=== PATIENT | female | born 1955 | race Caucasian/White ===

== ENCOUNTER 2020-03-31 12:46 | Emergency (ER) | payer MEDICARE, SELFPAY ==
--- NOTE | 2020-03-31 14:06 | ED_ITS ---
HPI - General Adult General Chief complaint: Back Pain/Injury Stated complaint: BACK PAIN Time Seen by Provider: 03/31/20 13:58 Source: patient and hourly sign language interpreter Mode of arrival: ambulatory Limitations: language barrier (tongan) History of Present Illness HPI narrative: 65 yo female with past medical history of hypertension, hyperlipidemia, GERD here with acute on chronic low back pain since yesterday. No injury or trauma. Radiation of pain down the right leg. No paresthesias. No saddle anesthesia. No bowel or bladder incontinence. No fevers or chills. Patient is ambulatory. History of same which improved with Toradol. Onset (ago): day(s) Location: back Radiation: extremity (right lower extremity ) Severity: mild Pain Consistency: constant Relieving factors: none Exacerbating factors: none Associated symptoms: denies other symptoms Treatments prior to arrival: none Related Data Previous Rx's Medication Instructions Recorded cyclobenzaprine 10 mg PO TID PRN #10 tab 03/31/20 lidocaine [Lidoderm] 1 patch TOPICAL DAILY #15 ea 03/31/20 naproxen 500 mg PO BID PRN #10 tab 03/31/20 Allergies Allergy/AdvReac Type Severity Reaction Status Date / Time peanut [PEANUT] Allergy Unknown ANAPHYLAXIS Unverified 12/13/19 15:56 penicillin G [Penicillin G] Allergy Unknown RASH Unverified 12/13/19 15:56 FRUIT Allergy Unknown THROAT Uncoded 12/13/19 15:56 CLOSES Review of Systems Review of Systems: Yes all other systems are reviewed and are negative Constitutional: Constitutional: Reports no additional constitutional complaints, Denies body ache(s), Denies chills, Denies fever(s), Denies headache(s) and Denies weakness Eyes: Eyes: Reports no additional eye complaints and Denies change in vision ENT: Reports system reviewed and no additional complaints, except as documented, Denies dizziness, Denies headache(s), Denies nasal congestion, Denies nasal discharge and Denies neck pain Cardiovascular: Cardiovascular: Reports no additional cardiovascular complaints, Denies chest pain, Denies leg edema and Denies dyspnea Respiratory: Respiratory: Reports no additional respiratory complaints, Denies cough and Denies dyspnea Gastrointestinal: Gastrointestinal: Reports no additional gastrointestinal complaints, Denies abdominal pain, Denies diarrhea, Denies nausea and Denies vomiting Genitourinary: Genitourinary: Reports no additional female genitourinary complaints and Denies urinary incontinence Musculoskeletal: Musculoskeletal: Reports no additional musculoskeletal complaints, Reports back pain, Denies arthralgias, Denies joint swelling, Denies neck pain, Denies numbness and Denies tingling Integumentary/Breasts: Skin/Breast: Reports system reviewed and no additional complaints, except as docu and Denies rash Neurologic: Reports system reviewed and no additional complaints, except as documented, Denies Abnormal speech present, Denies dizziness, Denies headache(s), Denies numbness, Denies tingling and Denies weakness FOR[facility]LY [facility], [facility] Past Medical History Attestation statement: The following information was validated with the patient. Source: old records reviewed and nursing notes reviewed Medical History (Updated 03/31/20 @ 14:10 by Vicente Molina) GERD (gastroesophageal reflux disease) HLD (hyperlipidemia) HTN (hypertension) Social History Social History Advance Directives: No Advance Directives Information Provided: No Physical Exam Vital Signs: Vital Signs: Last Vital Signs Temp 98 F 03/31/20 14:08 Pulse 60 03/31/20 14:08 Resp 16 03/31/20 14:08 BP 137/75 03/31/20 14:08 Pulse Ox 97 03/31/20 14:08 Body Mass Index 28.5 Const: General: cooperative, healthy appearing, comfortable and no acute distress Orientation/consciousness: patient oriented x3 Limitations: no limitations HENMT: Head: Yes normal to inspection Ears: hearing grossly normal bilaterally General nose exam: Normal external nose present Face and sinus: Yes normal facial exam Mouth: Normal oral and palatal mucosa present Throat: Yes posterior oropharynx normal Eyes: General: appearance normal, both eyes and all related structures Pupils: Equal, round and reactive pupils present Neck: Neck: Yes normal visual inspection Chest: Chest palpation & inspection: normal inspection of the chest Resp: Effort & Inspection: normal respiratory effort Auscultation: clear to auscultation bilaterally Cardio: Rate: regular rate Rhythm: regular rhythm Peripheral pulses: Peripheral pulses 2+ throughout GI: Inspection: Yes normal to inspection Palpation (GI): Soft to palpation and nontender Auscultation: normal bowel sounds Back/Spine/Pelvis: Other: Pain over the lumbar mid spine with tenderness. No step-off deformities. Full range of motion. Thoracic/Lumbar Spine: thoracic and lumbar spine normal to inspection Skin: General skin exam: no rashes or lesions noted Neuro: General: patient oriented x3, no focal motor deficits and normal sensation to monofilament Cranial nerves: Yes CN's II-XII intact bilaterally, Yes Equal, round and reactive pupils present, Yes Bilaterally intact EOM present, Yes Nystagmus not present, Yes Normal facial strength present and Yes Midline tongue present Cognition (Neuro): normal cognition Speech: No Abnormal speech present Gait exam (Neuro): Normal gait present Motor exam (neuro): 5/5 motor strength present throughout Sensory Exam: Normal double simultaneous stimulation for sensation Deep tendon reflexes (DTR's): Right patellar reflex intensity grade: 2+ and Left patellar reflex intensity grade: 2+ Extrem: General: Yes normal to inspection Course Course Course Narrative: Acute chronic low back pain is 1 day. No injury or trauma. Pain radiates down the right leg. No neurological deficits reflects nodes. Patient has had this similar pain before it is improved with Toradol. Given Toradol IM here with her. Reviewed worrisome signs symptoms would return to the emergency department. Comfortable discharge home. Discharge Plan Discharge Clinical Impression: Sciatica Qualifiers: Laterality: right Qualified Code(s): M54.31 - Sciatica, right side Patient Disposition: Home, Self-Care Instructions: Acute Low Back Pain (ED) Additional Instructions: heat gentle stretching Prescriptions: New naproxen 500 mg tablet 500 mg PO BID PRN (Reason: pain) Qty: 10 RF: 0 cyclobenzaprine 10 mg tablet 10 mg PO TID PRN (Reason: muscle spasm) Qty: 10 RF: 0 lidocaine [Lidoderm] 5 % adhesive patch,medicated 1 patch topical DAILY Qty: 15 RF: 0 Referrals: Physician,None [Primary Care Provider] - 2 days Interventions: ED Discharge Assessment Last Done: 03/31/20 14:22 Print Language: Kazakh
[2020-03-31 14:08] VITALS: BP 137/75; PULSE 60; RESP 16; TEMP 36.6; O2SAT 97; BMI 28.5
[2020-03-31] MEDS: Ketorolac Tromethamine 60 MG/2 ML VIAL IM (14:17)
== END 2020-03-31 14:30 | disposition home or self-care (01) ==
LOC: HO.ED 14:38
PROVIDERS: Emergency Provider Emergency Medicine
DX: M54.41 Lumbago with sciatica, right side (principal); I10 Essential (primary) hypertension
CPT/HCPCS: 96372; 99283; 99284; J1885

== ENCOUNTER 2021-01-04 11:13 | Emergency (ER) | payer OTHER, SELFPAY ==
--- NOTE | ~2021-01-04 | XR_ITS ---
EXAMINATION: XR LUMBOSACRAL SPINE CLINICAL INFORMATION: Low back pain. COMPARISON: None TECHNIQUE: Three views of the lumbosacral spine. FINDINGS: There is normal lumbar lordosis with loss of L1-L2 and T12-L1 disc heights. No focal acute fracture, lytic or sclerotic process seen. The paravertebral soft tissues are normal. XR/XR lumbar spine 2-3V IMPRESSION: Mild degenerative changes T12-L1 and L1-L2 disc levels. No visible acute fracture or dislocation seen. No lytic process.
[2021-01-04 11:16] VITALS: BP 133/85; PULSE 84; RESP 20; TEMP 36.6; O2SAT 97; BMI 29.2
[2021-01-04 11:44] LABS: MANUAL DIFF FLAG NO
[2021-01-04 11:46] LABS: Appearance Urine HAZY; Color Urine STRAW; Glucose Urine UA NEG (NEG); Leukocyte Esterase Urine 1+ (NEG); Nitrite Urine NEG (NEG); Specific Gravity - Urine <= 1.005 (1.005-1.025); UACC Culture Trigger YES; Urine Blood NEG (NEG); Urine Ketones NEG (NEG); Urine Protein NEG (NEG-TRACE)
[2021-01-04 11:46] LABS: Basophils Absolute Auto 0.1 X10*3/uL (0.0-0.2); Basophils Percent Auto 0.8 % (0-2); Eosinophils Absolute Auto 0.4 X10*3/uL (0.0-0.4); Eosinophils Percent Auto 4.2 % (0-4); Hematocrit 45.3 % (37-47); Hemoglobin 15.1 g/dl (12.0-16.0); Imm Gran Abs Auto 0.03 X10*3/uL (0.00-0.03); Imm Gran Pct Auto 0.3 % (0.0-0.4); Lymphocytes Absolute Auto 2.4 X10*3/uL (1.2-4.9); Lymphocytes Percent Auto 27.9 % (20-40); Mean Corpuscular HGB Conc 33.3 g/dl (31.0-35.0); Mean Corpuscular Hemoglobin 30.1 pg (27.0-33.0); Mean Corpuscular Volume 90.4 fL (80-98); Mean Platelet Volume 9.3 fL (9.4-12.3); Monocytes Absolute Auto 0.7 X10*3/uL (0.1-1.2); Monocytes Percent Auto 7.5 % (2-11); Neutrophils Absolute Auto 5.1 X10*3/uL (2.0-8.3); Neutrophils Percent Auto 59.3 % (45-73); Platelet Count 341 X10*3/uL (160-400); Red Blood Count 5.01 X10*6/uL (4.20-5.50); Red Cell Distribution Width 13.6 % (11.0-16.0); White Blood Count 8.7 X10*3/uL (4.8-10.8)
[2021-01-04 11:56] LABS: RBC Urine 0 /HPF (0); UACC CULT YES
[2021-01-04 11:57] LABS: Bacteria Urine 2+ /LPF; Squamous Epithelial Cell Urine 4+ /LPF
[2021-01-04 12:01] LABS: Alanine Aminotransferase 44 U/L (0-31); Albumin Level 4.6 g/dL (3.5-5.0); Alkaline Phosphatase 118 U/L (39-117); Anion Gap 13 (12-20); Aspartate Amino Transferase 27 U/L (5-31); Bilirubin Total 0.7 mg/dL (0.0-1.0); Blood Urea Nitrogen 19 mg/dL (9-16); Calcium 10.3 mg/dL (8.4-10.2); Carbon Dioxide 27 mmol/L (22-29); Chloride 103 mmol/L (96-108); Creatinine Clr Calc Pharmacy 69.7; Estimated Glomerular Filt Rate > 60; Glucose Random 105 mg/dL (60-115); Potassium 3.9 mmol/L (3.3-5.1); Sodium 139 mmol/L (135-145); Total Protein 8.3 g/dL (6.5-8.0)
--- NOTE | 2021-01-04 16:17 | ED_ITS ---
HPI - Back Pain/Injury General Chief Complaint: Back Pain/Injury Stated Complaint: back pain Time Seen by Provider: 01/04/21 16:17 Source: patient Mode of arrival: ambulatory Limitations: no limitations History of Present Illness HPI Narrative: Patient with hx of chronic back pain left sciatica complaining of increased pain in the lower back for last 4 days. Patient denies any significant trauma prior to worsening of the pain. Patient complain pain seems a little different than the sciatica pain going bilateral lower back and in groin area when she ambulates no urinary or bowel complaints no urinary compla ints no fever no weakness of the legs no paresthesia . No abdominal pain Related Data Home Medications Medication Instructions Recorded Confirmed albuterol sulfate 90 mcg/actuation INHALATION 12/30/20 12/30/20 aerosol inhaler (ProAir HFA) amlodipine 10 mg tablet 10 mg PO DAILY 12/30/20 12/30/20 losartan 100 mg tablet 100 mg PO DAILY 12/30/20 12/30/20 pantoprazole 40 mg tablet,delayed 40 mg PO DAILY 12/30/20 12/30/20 release simvastatin 20 mg tablet 20 mg PO BEDTIME 12/30/20 12/30/20 Previous Rx's Medication Instructions Recorded lidocaine 5 % topical patch 1 patch TOPICAL DAILY #15 ea 03/31/20 (Lidoderm) naproxen 500 mg tablet 500 mg PO BID PRN #10 tab 03/31/20 cyclobenzaprine 10 mg tablet 10 mg PO BID PRN #20 tab 12/30/20 nabumetone 500 mg tablet 500 mg PO BID PRN #30 tab 12/30/20 oxycodone 5 mg tablet 5 mg PO Q6H PRN #20 tab 01/04/21 prednisone 20 mg tablet 40 mg PO DAILY #10 tab 01/04/21 Allergies Allergy/AdvReac Type Severity Reaction Status Date / Time peanut [PEANUT] Allergy Unknown ANAPHYLAXIS Verified 01/04/21 11:22 penicillin G [Penicillin G] Allergy Unknown RASH Verified 01/04/21 11:22 FRUIT Allergy Unknown THROAT Uncoded 01/04/21 11:22 CLOSES Review of Systems Review of Systems: Yes all other systems are reviewed and are negative PMFSH Past Medical History Medical History GERD (gastroesophageal reflux disease) H/O nasal polyp HLD (hyperlipidemia) HTN (hypertension) Lumbago with sciatica, left side Surgical History History of tonsillectomy Hx of arthroscopy of right knee Family History Family History Daughter Mental health disorder Daughter Mental health disorder Social History Social History Housing: House Patient Tobacco Use Status: Never used Tobacco e-Cigarette/Vaping Use: Never Used Second Hand Smoke Exposure: No Advance Directives: No Patient : No service: No Current occupational status: unemployed Physical Exam Vital Signs: Vital Signs: Last Vital Signs Temp 97.7 F 01/04/21 17:27 Pulse 65 01/04/21 17:27 Resp 16 01/04/21 17:27 BP 133/76 01/04/21 17:27 Pulse Ox 97 01/04/21 17:27 Body Mass Index 29.2 Const: General: healthy appearing, well developed and acute distress mild Orientation/consciousness: patient oriented x3 Neck: Neck: No tender Resp: Effort & Inspection: normal respiratory effort Auscultation: clear to auscultation bilaterally Cardio: Palpation: normal PMI Rate: regular rate Rhythm: regular rhythm Heart sounds: S1 normal heart sound present and S2 normal heart sound present Bruits: no abdominal aortic bruits GI: Inspection: Yes normal to inspection Palpation (GI): No Abdominal aortic bruit present, Soft to palpation and nontender Auscultation: normal bowel sounds : General: Yes no CVA tenderness Back/Spine/Pelvis: Back: no CVA tenderness Cervical Spine: normal cervical lordosis, No Cervical spine tenderness and No step off deformity Thoracic/Lumbar Spine: straight leg raise negative bilaterally, thoraco-lumbar spasm and lumbar spinal tenderness at L2 and at L3 Back/spine/pelvis image: 1. Diffuse tenderness paraspinal area no focal spinal tenderness sacral sensation intact Neuro: General: patient oriented x3 and no focal motor deficits MDM - Back Pain/Injury MDM Narrative Medical decision making narrative: Patient's lumbar spine x-ray which showed some degenerative joint disease no acute fracture or lytic lesion discharge patient home on pain medication Lab Data Attestation: I reviewed the patient's lab results. Result diagrams: 01/04/21 11:35 01/04/21 11:35 Labs: Lab Results 01/04/21 01/04/21 01/04/21 Range/Units 11:35 11:35 11:39 WBC 8.7 (4.8-10.8) X10*3/uL RBC 5.01 (4.20-5.50) X10*6/uL Hgb 15.1 (12.0-16.0) g/dl Hct 45.3 (37-47) % MCV 90.4 (80-98) fL MCH 30.1 (27.0-33.0) pg MCHC 33.3 (31.0-35.0) g/dl RDW 13.6 (11.0-16.0) % Plt Count 341 (160-400) X10*3/uL MPV 9.3 L (9.4-12.3) fL Immature Gran % (Auto) 0.3 (0.0-0.4) % Neut % (Auto) 59.3 (45-73) % Lymph % (Auto) 27.9 (20-40) % [place] % (Auto) 7.5 (2-11) % Eos % (Auto) 4.2 H (0-4) % Baso % (Auto) 0.8 (0-2) % Lymph # (Auto) 2.4 (1.2-4.9) X10*3/uL [place] # (Auto) 0.7 (0.1-1.2) X10*3/uL Eos # (Auto) 0.4 (0.0-0.4) X10*3/uL Baso # (Auto) 0.1 (0.0-0.2) X10*3/uL Abs Immat Gran (auto) 0.03 (0.00-0.03) X10*3/uL Absolute Neuts (auto) 5.1 (2.0-8.3) X10*3/uL Absolute Nucleated RBC 0.000 (0.0-0.012) X10*3/uL Nucleated RBC % (auto) 0.0 (0.0-0.2) /100WBC Sodium 139 (135-145) mmol/L Potassium 3.9 (3.3-5.1) mmol/L Chloride 103 (96-108) mmol/L Carbon Dioxide 27 (22-29) mmol/L Anion Gap 13 (12-20) BUN 19 H (9-16) mg/dL Creatinine 0.77 (0.5-1.4) mg/dL Estim Creat Clear Calc 69.7 Estimated GFR > 60 Random Glucose 105 (60-115) mg/dL Calcium 10.3 H (8.4-10.2) mg/dL Total Bilirubin 0.7 (0.0-1.0) mg/dL AST 27 (5-31) U/L ALT 44 H (0-31) U/L Alkaline Phosphatase 118 H (39-117) U/L Total Protein 8.3 H (6.5-8.0) g/dL Albumin 4.6 (3.5-5.0) g/dL Urine Color STRAW Urine Appearance HAZY Urine pH 6.0 (5.0-8.0) Ur Specific [place] <= 1.005 (1.005-1.025) Urine Protein NEG (NEG-TRACE) MG/DL Urine Glucose (UA) NEG (NEG) MG/DL Urine Ketones NEG (NEG) MG/DL Urine Blood NEG (NEG) Urine Nitrite NEG (NEG) Ur Leukocyte Esterase 1+ H (NEG) Urine RBC 0 (0) /HPF Urine WBC 1-4 (0-4) /HPF Ur Squamous Epith Cells 4+ /LPF Urine Bacteria 2+ /LPF Discharge Plan Discharge Clinical Impression: Strain of lumbar region Qualifiers: Encounter type: initial encounter Qualified Code(s): S39.012A - Strain of muscle, fascia and tendon of lower back, initial encounter Patient Disposition: Home, Self-Care Instructions: Back Pain (ED) Additional Instructions: Take pain medication as advised Follow-up with your PCP for further evaluation including MRI [place] los analg?sicos seg?n lo recomendado Shabbir un seguimiento con arevalo PCP para leo evaluaci?n adicional, incluida leo resonancia magn?katy Prescriptions: New prednisone 20 mg tablet 40 mg PO DAILY Qty: 10 RF: 0 oxycodone 5 mg tablet 5 mg PO Q6H PRN (Reason: Pain (Scale Score 7-10)) Qty: 20 RF: 0 No Action naproxen 500 mg tablet 500 mg PO BID PRN (Reason: pain) Qty: 10 RF: 0 lidocaine [Lidoderm] 5 % adhesive patch,medicated 1 patch topical DAILY Qty: 15 RF: 0 pantoprazole 40 mg tablet,delayed release (DR/EC) 40 mg PO DAILY RF: 0 losartan 100 mg tablet 100 mg PO DAILY RF: 0 amlodipine 10 mg tablet 10 mg PO DAILY RF: 0 simvastatin 20 mg tablet 20 mg PO BEDTIME RF: 0 albuterol sulfate [ProAir HFA] 90 mcg/actuation HFA aerosol inhaler inhalation RF: 0 cyclobenzaprine 10 mg tablet 10 mg PO BID PRN (Reason: muscle spasm) Qty: 20 RF: 0 nabumetone 500 mg tablet 500 mg PO BID PRN (Reason: pain) Qty: 30 RF: 0 Print Language: Norwegian
[2021-01-04 17:27] VITALS: BP 133/76; PULSE 65; RESP 16; TEMP 36.5; O2SAT 97
[2021-01-04] MEDS: oxyCODONE HCl Immed Release 5 MG TABLET 10 MG PO (18:16)
[2021-01-04] MEDS: dexAMETHasone 2 MG TABLET 10 MG PO (18:17)
== END 2021-01-04 19:34 | disposition home or self-care (01) ==
PROVIDERS: Emergency Provider Internal Medicine
DX: S39.012A Strain of muscle, fascia and tendon of lower back, initial encounter (principal); I10 Essential (primary) hypertension; X58.XXXA Exposure to other specified factors, initial encounter; Y93.9 Activity, unspecified; Y92.9 Unspecified place or not applicable; Y99.9 Unspecified external cause status
CPT/HCPCS: 36415; 72100; 80053; 81001; 85025; 87086; 87088; 87147; 87186; 99283; 99284; J8540

== ENCOUNTER 2021-02-03 13:37 | Outpatient (REF) | payer OTHER, SELFPAY ==
--- NOTE | ~2021-02-03 | MR_ITS ---
EXAMINATION: MR LUMBAR SPINE WITHOUT CONTRAST CLINICAL INFORMATION: 65-year-old with lumbago and right sciatica. COMPARISON: None TECHNIQUE: MRI of the lumbar spine was obtained using routine sequences without contrast. FINDINGS: CORONAL ALIGNMENT: Normal. SAGITTAL ALIGNMENT: Normal. LUMBOSACRAL JUNCTION: Normal. VERTEBRAL BODIES: Normal height. DISC SPACES AND ENDPLATES: [id number]-dpmcnpez disc space height loss at L5-S1 with disc desiccation noted. Mild disc desiccation at L4-L5 and to a lesser degree at L3-L4 and L2-L3. Minimal disc desiccation at L1-L2. Minor degrees of anterior marginal endplate spurring throughout the lumbar spine. SPINAL CANAL: No abnormal developmental findings. BONE MARROW: No significant marrow-replacing process or bone marrow edema. CONUS MEDULLARIS: Terminates at L1. Morphology and signal is normal. INTRADURAL NERVE ROOTS: Within normal limits. L5-S1: Mild diffuse disc bulging is noted with mild bilateral facet arthropathy without significant canal or neural foraminal stenosis. L4-L5: Minimal disc bulging noted with mild ligamentum flavum thickening and minor facet hypertrophic change without significant canal or neural foraminal stenosis. L3-L4: No significant disc bulge or herniation and no significant facet arthrosis, canal or neural foraminal stenosis. L2-L3: Tiny right paramedian disc protrusion noted. No significant facet arthrosis, canal or neural foraminal stenosis. L1-L2: Small central extruded disc herniation noted with slight indentation of the ventral thecal sac without significant facet arthrosis, canal or neural foraminal stenosis. PARASPINAL/RETROPERITONEAL: The paravertebral soft tissues are unremarkable. MR/MR lumbar spine wo con IMPRESSION: 1. Discogenic degenerative changes with disc bulging and facet arthropathy at L5-S1 and minimal disc bulging at L4-L5 with minor degrees of multilevel anterior marginal endplate spurring without canal or neural foraminal stenosis. 2. Small disc herniations at L1-L2 and L2-L3.
== END 2021-02-03 13:38 | disposition home or self-care (01) ==
LOC: HO.MRI 13:37
PROVIDERS: Visit Provider Nurse Practitioner Family
DX: M54.41 Lumbago with sciatica, right side (principal); M54.42 Lumbago with sciatica, left side; G89.29 Other chronic pain
CPT/HCPCS: 72148

== ENCOUNTER 2021-02-10 13:27 | Outpatient (REF) | payer OTHER, SELFPAY ==
--- NOTE | ~2021-02-10 | MM_ITS ---
EXAMINATION: MM SCREENING DIGITAL BREAST TOMOSYNTHESIS, BILATERAL CLINICAL INFORMATION: Screening. Asymptomatic. The lifetime risk of breast cancer based on the Tyrer-Cuzick Model is 4%. COMPARISON: Mammography: 03/10/2016, 09/18/2013. TECHNIQUE: Digital breast tomosynthesis is performed in both the craniocaudal and mediolateral oblique views along with computer-aided detection (CAD). Synthesized 2D images are generated from the tomosynthesis. Additional left MLO view is provided. FINDINGS: There are scattered areas of fibroglandular density (ACR BI-RADS breast composition Category b). There are no significant masses, abnormal calcifications, or other abnormalities. MM/MM tomosynthesis screening BI IMPRESSION: No mammographic evidence of malignancy. ASSESSMENT: BI-RADS 1: Negative RECOMMENDATION: Routine annual mammography screening. This patient's information was entered into a reminder system with a target due date for their next mammogram.
== END 2021-02-10 13:28 | disposition home or self-care (01) ==
LOC: HO.MAMMO 13:27
PROVIDERS: PCP Internal Medicine; Visit Provider Internal Medicine
DX: Z12.31 Encounter for screening mammogram for malignant neoplasm of breast (principal)
CPT/HCPCS: 77063; 77067

== ENCOUNTER 2021-04-01 12:40 | Outpatient (REF) | payer OTHER, SELFPAY ==
[2021-04-01 16:26] LABS: CT PCR NOT DETECTED (Not Detect.); NG PCR NOT DETECTED (Not Detect.)
[2021-04-07 03:12] LABS: HPV mRNA E6/E7 rflx Not Detected (Not Detected)
== END 2021-04-01 12:41 | disposition home or self-care (01) ==
LOC: HO.LAB 12:40
PROVIDERS: PCP Internal Medicine; Visit Provider Advanced Practice Midwife
DX: Z01.419 Encounter for gynecological examination (general) (routine) without abnormal findings (principal); Z11.51 Encounter for screening for human papillomavirus (HPV); Z20.2 Contact with and (suspected) exposure to infections with a predominantly sexual mode of transmission
CPT/HCPCS: 87491; 87591; 87624; 88142

== ENCOUNTER 2021-05-08 12:41 | Outpatient (REF) | payer OTHER, SELFPAY ==
--- NOTE | ~2021-05-08 | XR_ITS ---
EXAMINATION: XR CERVICAL SPINE CLINICAL INFORMATION: Pain COMPARISON: None TECHNIQUE: 6 views of the cervical spine, inclusive of flexion and extension views, were obtained. FINDINGS: No acute fracture or subluxation. Alignment of the cervical spine maintained. Vertebral body heights maintained. Mild loss of disc space height at C5-C6. Tiny endplate osteophytes present C4-C5, C5-C6-C6 7. Mild facet arthropathy throughout cervical spine. Mild osseous neural foraminal encroachment on the right at C4-C5 and C5-C6. Paraspinal soft tissues unremarkable. XR/XR cervical spine min 6V IMPRESSION: No acute findings. Cervical spondylosis as described.
== END 2021-05-08 12:42 | disposition home or self-care (01) ==
LOC: HO.XRAY 12:41
PROVIDERS: PCP Internal Medicine; Visit Provider Student in an Organized Health Care Education/Training Program
DX: M51.16 Intervertebral disc disorders with radiculopathy, lumbar region (principal)
CPT/HCPCS: 72052

== ENCOUNTER → 2021-06-16 13:11 | Outpatient (BNVA) | payer OTHER, SELFPAY | PROVIDERS: PCP Internal Medicine; Visit Provider Physician Assistant | DX: K21.9 Gastro-esophageal reflux disease without esophagitis (principal) | CPT/HCPCS: 99202 ==

== ENCOUNTER 2021-08-14 12:50 | Day surgery (SDC) | payer OTHER, SELFPAY ==
[2021-08-10 14:54] VITALS: BMI 28.9
--- NOTE | 2021-08-13 10:00 | HO.ANESPROP2 ---
Documented by User: Latanya Barcenas NP 08/13/21 10:02 HPI - Anesthesia Eval Consult details Narrative: 66yo F for Upper Endoscopy PMFSH Active Problems Active Problems: All Active Problems (Updated 08/10/21 @ 14:55 by Lorri Duke, JESSY) Strain of lumbar region (Acute) Chronic low back pain with bilateral sciatica (Acute) Facet arthropathy, lumbosacral (Acute) L4-L5 disc bulge (Acute) Lumbar disc herniation (Acute) Melena (Acute) Moderate persistent asthma, uncomplicated (Acute) Hypercalcemia (Acute) GERD (gastroesophageal reflux disease) (Acute) HTN (hypertension) (Acute) HLD (hyperlipidemia) (Acute) Asthma (Acute) Lumbago with sciatica, left side (Acute) Past Medical History Medical History COVID-19 vaccine series completed GERD (gastroesophageal reflux disease) H/O nasal polyp HLD (hyperlipidemia) HTN (hypertension) Hypercalcemia Lumbago with sciatica, left side Melena Moderate persistent asthma, uncomplicated Family History Family History Daughter Mental health disorder Daughter Mental health disorder Father CAD (coronary artery disease) Mother Alzheimer disease Essential hypertension Surgical History Surgical History H/O colonoscopy History of tonsillectomy Hx of arthroscopy of right knee Hx of nasal polypectomy Social History Social History Housing: House Patient Tobacco Use Status: Never used Tobacco e-Cigarette/Vaping Use: Never Used Second Hand Smoke Exposure: No Use of substances other than those prescribed or required for medical reasons: No Are you DNR?: No Advance Directives: No Advance Directives Information Provided: Yes Advance Directives on File: No Patient : No service: No Current occupational status: unemployed Meds Allergies Allergy/AdvReac Type Severity Reaction Status Date / Time peanut [PEANUT] Allergy Severe ANAPHYLAXIS Verified 08/10/21 14:38 penicillin G [Penicillin G] Allergy Intermediate RASH Verified 08/10/21 14:38 FRUIT Allergy Severe THROAT Uncoded 08/10/21 14:38 CLOSES Exam Exam Date and Time: August 13, 2021 1000 Height,Weight and Vital Signs: Height 5 ft 2 in Weight 71.668 kg Pertinent Lab Results Pertinent Lab Results: Laboratory Tests 01/04/21 01/04/21 11:35 11:35 WBC 8.7 Hgb 15.1 Hct 45.3 Plt Count 341 Sodium 139 Potassium 3.9 Chloride 103 Carbon Dioxide 27 BUN 19 H Creatinine 0.77 Assessment and Plan Assessment Anesthesia Assessment: Chart Reviewed Documented by User: Darshana Maria MD 08/14/21 14:23 [facility] Past Medical History Medical History COVID-19 vaccine series completed GERD (gastroesophageal reflux disease) H/O nasal polyp HLD (hyperlipidemia) HTN (hypertension) Hypercalcemia Lumbago with sciatica, left side Melena Moderate persistent asthma, uncomplicated Functional capacity: independent ambulation Patient : No Family History Family History Daughter Mental health disorder Daughter Mental health disorder Father CAD (coronary artery disease) Mother Alzheimer disease Essential hypertension Family history of problems with anesthesia: No Surgical History Surgical History H/O colonoscopy History of tonsillectomy Hx of arthroscopy of right knee Hx of nasal polypectomy History of Problems with Anesthesia: No Social History Social History Housing: House Patient Tobacco Use Status: Never used Tobacco e-Cigarette/Vaping Use: Never Used Second Hand Smoke Exposure: No Use of substances other than those prescribed or required for medical reasons: No Are you DNR?: No Advance Directives: No Advance Directives Information Provided: Yes Advance Directives on File: No Patient : No service: No Current occupational status: unemployed Meds Allergies Allergy/AdvReac Type Severity Reaction Status Date / Time peanut [PEANUT] Allergy Severe ANAPHYLAXIS Verified 08/10/21 14:38 penicillin G [Penicillin G] Allergy Intermediate RASH Verified 08/10/21 14:38 FRUIT Allergy Severe THROAT Uncoded 08/10/21 14:38 CLOSES Exam Airway Mallampati Class: II TM Dist: >3cm Neck ROM: Full Heart: RRR Lungs: CYA Assessment and Plan Final Anesthetic Review Family History of Problems with Anesthesia: No History of Problems with Anesthesia: No ASA Class: II Final Preanesthetic Review: No Changes in Pt Med Stat, Meds/Allgs Chart Reviewed, Consent Obtained/Reviewed and Anes Risks/Benef Reviewed Patient Risk: Low Procedure Risk: Low Anesthetic Plan Anesthetic Plan: MAC: Disposition: Standard PACU
[2021-08-14 13:09] VITALS: BP 123/78; PULSE 81; RESP 16; TEMP 37.2; O2SAT 96
[2021-08-14] MEDS: Lactated Ringers 1,000 ML 100 ML IVCONT (13:19)
--- NOTE | 2021-08-14 13:31 | MHC.SHP ---
Pre-Procedural Eval Section A Date of Service: 08/14/21 The patient is an INPATIENT: No The History & Physical has been completed within 30 days and I have reviewed it.: No Section B Chief Complaint: reflux disease Details of Present Illness: GERD, ? halitosis Relevant Family History (Specify if Yes): No Relevant Social History: None Present Medications: see Short Stay Collaborative assessment Medical History: Significant History (Asthma GERD (gastroesophageal reflux disease) H/O nasal polyp HLD (hyperlipidemia) HTN (hypertension) Hypercalcemia Lumbago with sciatica, left side Melena Moderate persistent asthma, uncomplicated) History of Previous Operations: Relevant previous surgery/procedure and date(s) (History of tonsillectomy Hx of arthroscopy of right knee Nasal polyps) Allergies: Allergies Allergy/AdvReac Type Severity Reaction Status Date / Time peanut [PEANUT] Allergy Severe ANAPHYLAXIS Verified 08/10/21 14:38 penicillin G [Penicillin G] Allergy Intermediate RASH Verified 08/10/21 14:38 FRUIT Allergy Severe THROAT Uncoded 08/10/21 14:38 CLOSES Review of Systems Sugical H&P ROS: Negative: Constitution, Cardiovascular and Respiratory and Yes, Specify: Gastrointestinal (dyspepsia) Exam Surgical H&P Exam: Normal: Heart, Normal: Lungs, Normal: Extremities and Normal: Abdomen Plan Diagnosis/Plan: Unchanged I have reviewed the history and physical and performed a pertinent physical examination on my patient. No changes have occurred unless specified.
--- NOTE | 2021-08-14 13:33 | W.PM.OPN ---
Operative Note Operative Note Date of Service: 08/14/21 Narrative: Pre-op diagnosis: GERD, Dyspepsia, halitosis - pt reports halitosis has resolved since the past 2 weeks Post-op diagnosis:?other (GERD, hiatal hernia, gastritis) Procedure: FLEXIBLE TRANSORAL UPPER GASTROINTESTINAL ENDOSCOPY WITH BIOPSIES Consent:?Indications for the procedure and potential complications of bleeding, perforation, reaction to medications and missed diagnosis were discussed with the patient and informed consent was obtained. Instrument:?Olympus GIF H 190 mid size upper endoscope Monitoring: Vital signs and clinical assessment, continuous EKG monitoring, Pulse oximetry, Carbon Dioxide monitoring and blood pressure monitoring were done throughout the procedure. Procedure:?The patient was placed in the left lateral decubitis position and pre-procedure medications were administered and a bite block was placed. The endoscope was inserted into the mouth and advanced under direct vision to the third part of duodenum. A careful inspection was made as the upper endoscope was withdrawn including a retroflexed examination of the proximal stomach; Findings and interventions are described below. Findings: Larynx:? Normal Esophagus:? Mildly tortuous esophagus with increased tertiary contractions without stricture or ring.? GE junction at 33 cms, hiatal hernia 33 to 37 cms. No esophagitis or Staples's. Stomach: Mild gastric erythema. Biopsies were obtained. Grade 2 flap valve on retroflexed examination of the cardia. Duodenum: Normal bulb and descending duodenum Intervention: Biopsies as noted above Impression and Post Procedure Diagnosis: Endoscopy Findings: ESOPHAGUS: Mildly tortuous esophagus with increased tertiary contractions without stricture or ring.? GE junction at 33 cms, hiatal hernia 33 to 37 cms. No esophagitis or Staples's. STOMACH: Gastritis Plan: Await pathology results Patient has an appointment on 08/27/21 in the GI [facility] with VIVIANE Taylor . GERD, Hiatal Hernia and Gastritis handouts were given in the discharge area Surgeon: Camille Villanueva MD Anesthesia:?MAC (Jana Hernandez CRNA) Was an Fiscal Services Director used for this Procedure?:?Yes Fiscal Services Director:?Navya Urbano Estimated blood loss (mL):?0 Pathology:?other (a: bx's gastric antrum? b: gastric polyps) Condition:?stable Disposition:?PACU
[2021-08-14 15:08] VITALS: BP 97/60; PULSE 76; RESP 16; TEMP 36.2; O2SAT 96
[2021-08-14 15:23] VITALS: BP 111/74; PULSE 80; RESP 18; TEMP 36.2; O2SAT 96
== END 2021-08-14 15:37 | disposition home or self-care (01) ==
PROVIDERS: PCP Internal Medicine; Visit Provider Internal Medicine Gastroenterology
PROC: 0DJ08ZZ Inspection of Upper Intestinal Tract, Via Natural or Artificial Opening Endoscopic (ICD-10-PCS; CPT 43235; principal; 2021-08-14 13:50)
DX: K21.9 Gastro-esophageal reflux disease without esophagitis (principal); R19.6 Halitosis; K29.50 Unspecified chronic gastritis without bleeding; K22.89 Other specified disease of esophagus; K31.7 Polyp of stomach and duodenum; K44.9 Diaphragmatic hernia without obstruction or gangrene; I10 Essential (primary) hypertension; E78.5 Hyperlipidemia, unspecified; E83.52 Hypercalcemia; J45.40 Moderate persistent asthma, uncomplicated; Z79.51 Long term (current) use of inhaled steroids; Z79.899 Other long term (current) drug therapy; Z88.0 Allergy status to penicillin
CPT/HCPCS: 43239; 88305; 88342; J2250

== ENCOUNTER → 2021-08-27 12:59 | Outpatient (BNVA) | payer OTHER, SELFPAY | PROVIDERS: PCP Internal Medicine; Referring Provider Internal Medicine; Visit Provider Physician Assistant | DX: Z13.89 Encounter for screening for other disorder (principal) ==

== ENCOUNTER 2021-09-24 08:44 | Outpatient (REF) | payer OTHER, SELFPAY ==
[2021-09-24 09:06] LABS: MANUAL DIFF FLAG NO
[2021-09-24 09:57] LABS: Basophils Absolute Auto 0.1 X10*3/uL (0.0-0.2); Basophils Percent Auto 1.1 % (0-2); Eosinophils Absolute Auto 0.4 X10*3/uL (0.0-0.4); Eosinophils Percent Auto 4.9 % (0-4); Hematocrit 43.1 % (37.0-47.0); Hemoglobin 14.4 g/dl (12.0-16.0); Imm Gran Abs Auto 0.02 X10*3/uL (0.00-0.03); Imm Gran Pct Auto 0.3 % (0.0-0.4); Lymphocytes Absolute Auto 2.6 X10*3/uL (1.2-4.9); Mean Corpuscular HGB Conc 33.4 g/dl (31.0-35.0); Mean Corpuscular Hemoglobin 30.6 pg (27.0-33.0); Mean Corpuscular Volume 91.7 fL (80.0-98.0); Monocytes Absolute Auto 0.5 X10*3/uL (0.1-1.2); Neutrophils Absolute Auto 3.9 x10*3/uL (2.0-8.3); Neutrophils Percent Auto 51.7 % (45-73); Platelet Count 350 X10*3/uL (160-400); Red Cell Distribution Width 13.6 % (11.0-16.0); White Blood Count 7.6 X10*3/uL (4.8-10.8)
[2021-09-24 10:30] LABS: Alanine Aminotransferase 23 U/L (0-31); Albumin Level 4.7 g/dL (3.5-5.0); Alkaline Phosphatase 99 U/L (39-117); Anion Gap 14 (12-20); Aspartate Amino Transferase 17 U/L (5-31); Bilirubin Total 0.5 mg/dL (0.0-1.0); Blood Urea Nitrogen 27 mg/dL (9-16); Calcium 9.9 mg/dL (8.4-10.2); Carbon Dioxide 25 mmol/L (22-29); Chloride 105 mmol/L (96-108); Cholesterol 183 mg/dL; Estimated Glomerular Filt Rate > 60; Glucose Fasting 105 mg/dL (60-99); HDL Cholesterol 52 mg/dL; LDL Cholesterol Calculated 114 mg/dl; Potassium 3.9 mmol/L (3.3-5.1); Sodium 140 mmol/L (135-145); Triglycerides 85 mg/dL
[2021-09-25 12:02] LABS: PTHI 37 pg/mL (16-77)
== END 2021-09-24 08:45 | disposition home or self-care (01) ==
LOC: HO.LAB 08:44
PROVIDERS: Physician Assistant; PCP Internal Medicine; Visit Provider Internal Medicine
DX: K21.9 Gastro-esophageal reflux disease without esophagitis (principal); K92.1 Melena; E83.52 Hypercalcemia; E78.5 Hyperlipidemia, unspecified
CPT/HCPCS: 36415; 80053; 80061; 82330; 83970; 85025

== ENCOUNTER 2021-10-28 13:47 | Outpatient (REF) | payer OTHER, SELFPAY ==
[2021-10-28 14:36] LABS: MANUAL DIFF FLAG NO
[2021-10-28 14:53] LABS: Basophils Absolute Auto 0.1 X10*3/uL (0.0-0.2); Basophils Percent Auto 0.8 % (0-2); Eosinophils Absolute Auto 0.5 X10*3/uL (0.0-0.4); Eosinophils Percent Auto 6.2 % (0-4); Hematocrit 40.8 % (37.0-47.0); Hemoglobin 13.8 g/dl (12.0-16.0); Imm Gran Abs Auto 0.02 X10*3/uL (0.00-0.03); Imm Gran Pct Auto 0.2 % (0.0-0.4); Lymphocytes Absolute Auto 2.8 X10*3/uL (1.2-4.9); Lymphocytes Percent Auto 33.5 % (20-40); Mean Corpuscular HGB Conc 33.8 g/dl (31.0-35.0); Mean Corpuscular Hemoglobin 30.9 pg (27.0-33.0); Mean Corpuscular Volume 91.3 fL (80.0-98.0); Mean Platelet Volume 9.8 fL (9.4-12.3); Monocytes Absolute Auto 0.7 X10*3/uL (0.1-1.2); Monocytes Percent Auto 8.1 % (2-11); Neutrophils Absolute Auto 4.2 x10*3/uL (2.0-8.3); Neutrophils Percent Auto 51.2 % (45-73); Platelet Count 333 X10*3/uL (160-400); Red Blood Count 4.47 X10*6/uL (4.20-5.50); Red Cell Distribution Width 13.1 % (11.0-16.0); White Blood Count 8.3 X10*3/uL (4.8-10.8)
[2021-10-29 22:17] LABS: Immunoglobulin E 63 kU/L (<OR=114)
[2021-11-03 17:25] LABS: Calcium, Ionized 5.2 mg/dL (4.8-5.6)
== END 2021-10-28 13:48 | disposition home or self-care (01) ==
LOC: HO.LAB 13:47
PROVIDERS: PCP Internal Medicine; Visit Provider Internal Medicine Pulmonary Disease
DX: E83.52 Hypercalcemia (principal); J45.40 Moderate persistent asthma, uncomplicated; Z91.09 Other allergy status, other than to drugs and biological substances
CPT/HCPCS: 36415; 82330; 82785; 85025; 86003; 99202

== ENCOUNTER 2021-12-15 09:35 | Outpatient (REF) | payer OTHER, SELFPAY ==
--- NOTE | 2021-12-15 12:13 | PFT_ITS ---
INDICATION: Allergies. SPIROMETRY: FEV1 to FVC of 88% with an FEV1 of 1.88 L, which is 80% predicted, and an FVC of 2.13 L, which is 71% predicted. No significant response to bronchodilators noted. Maximum voluntary ventilation 80% predicted. LUNG VOLUMES: Total lung capacity 70% predicted with an expiratory reserve volume of 37% predicted. DIFFUSION CAPACITY: DLCO 85% predicted. COMPARISONS: None. INTERPRETATION: No obstructive ventilatory defect. No significant response to bronchodilators noted. Normal maximum voluntary ventilation. However, the patient does have restrictive ventilatory defect consistent mild restrictive lung disease. The patient also has a decreased expiratory reserve volume. Diffusion capacity is within normal limits. If asthma is in the differential, methacholine challenge may be helpful in assessing for hyper-reactive airways, otherwise clinical correlation warranted. MD RACHEAL Ibarra/MODL / [phone]
== END 2021-12-15 09:36 | disposition home or self-care (01) ==
LOC: HO.RESP 09:35
PROVIDERS: PCP Internal Medicine; Visit Provider Internal Medicine Pulmonary Disease
DX: Z91.09 Other allergy status, other than to drugs and biological substances (principal)
CPT/HCPCS: 94060; 94727; 94729

== ENCOUNTER 2021-12-17 14:29 | Outpatient (REF) | payer OTHER, SELFPAY | END 2021-12-17 14:30 | disposition home or self-care (01) | LOC: HO.RESP 14:29 | PROVIDERS: PCP Internal Medicine; Visit Provider Internal Medicine Pulmonary Disease | DX: J45.909 Unspecified asthma, uncomplicated (principal); Z91.09 Other allergy status, other than to drugs and biological substances | CPT/HCPCS: 99212 ==

== ENCOUNTER 2022-01-12 12:45 | Outpatient (REF) | payer OTHER, SELFPAY | END 2022-01-12 12:46 | disposition home or self-care (01) | LOC: HO.MDS 12:45 | PROVIDERS: Visit Provider Internal Medicine Pulmonary Disease | DX: J45.40 Moderate persistent asthma, uncomplicated (principal) | CPT/HCPCS: 96372; J2357 ==

== ENCOUNTER 2022-02-23 11:59 | Outpatient (REF) | payer MEDICARE, MEDICAID, SELFPAY | END 2022-02-23 12:00 | disposition home or self-care (01) | LOC: HO.MDS 11:59 | PROVIDERS: Visit Provider Internal Medicine Pulmonary Disease | DX: J45.40 Moderate persistent asthma, uncomplicated (principal) | CPT/HCPCS: 96372; J2357 ==

== ENCOUNTER 2022-03-23 12:53 | Outpatient (REF) | payer MEDICARE, MEDICAID, SELFPAY | END 2022-03-23 12:54 | disposition home or self-care (01) | LOC: HO.MDS 12:53 | PROVIDERS: Visit Provider Internal Medicine Pulmonary Disease | DX: J45.40 Moderate persistent asthma, uncomplicated (principal) | CPT/HCPCS: 96372; J2357 ==

== ENCOUNTER 2022-04-26 13:03 | Outpatient (REF) | payer MEDICARE, MEDICAID, SELFPAY | END 2022-04-26 13:04 | disposition home or self-care (01) | LOC: HO.MDS 13:03 | PROVIDERS: Visit Provider Internal Medicine Pulmonary Disease | DX: J45.40 Moderate persistent asthma, uncomplicated (principal) | CPT/HCPCS: 96372; J2357 ==

== ENCOUNTER → 2022-06-04 14:42 | Outpatient (BNVA) | payer MEDICARE, MEDICAID, SELFPAY | PROVIDERS: PCP Internal Medicine; Visit Provider Internal Medicine Pulmonary Disease ==

== ENCOUNTER → 2022-06-14 07:04 | Outpatient (REF) | payer MEDICARE, MEDICAID, SELFPAY ==
--- NOTE | 2022-06-14 07:25 | HM_ITS ---
Conclusion: 1. Patient was monitored for total period of 2 days and 22 hours 2. Baseline was normal sinus rhythm with average heart of 76 beats per minute 3. No significant pauses or bradycardia noted 4. Very rare PVCs noted 5. No patient reported symptoms MTDD
[2022-06-14 08:12] LABS: Alanine Aminotransferase 40 U/L (0-31); Albumin Level 4.5 g/dL (3.5-5.0); Alkaline Phosphatase 110 U/L (39-117); Anion Gap 16 (12-20); Aspartate Amino Transferase 23 U/L (5-31); Bilirubin Total 0.5 mg/dL (0.0-1.0); Blood Urea Nitrogen 18 mg/dL (9-16); Calcium 9.7 mg/dL (8.4-10.2); Carbon Dioxide 26 mmol/L (22-29); Chloride 102 mmol/L (96-108); Cholesterol 189 mg/dL; Estimated Glomerular Filt Rate > 60; Glucose Fasting 111 mg/dL (60-99); HDL Cholesterol 56 mg/dL; LDL Cholesterol Calculated 116 mg/dl; Sodium 140 mmol/L (135-145); Total Protein 7.9 g/dL (6.5-8.0); Triglycerides 85 mg/dL
== END ==
LOC: HO.CARD 07:04
PROVIDERS: Internal Medicine; Visit Provider Nurse Practitioner Family
DX: R00.2 Palpitations (principal); I10 Essential (primary) hypertension; E78.5 Hyperlipidemia, unspecified
CPT/HCPCS: 36415; 80053; 80061; 93242

== ENCOUNTER 2022-06-15 11:44 | Outpatient (REF) | payer MEDICARE, MEDICAID, SELFPAY | END 2022-06-15 11:45 | disposition home or self-care (01) | LOC: HO.MDS 11:44 | PROVIDERS: Visit Provider Internal Medicine Pulmonary Disease | DX: J45.40 Moderate persistent asthma, uncomplicated (principal) | CPT/HCPCS: 96372; J2357 ==

== ENCOUNTER → 2022-06-30 13:28 | Outpatient (BNVA) | payer MEDICARE, MEDICAID, SELFPAY | PROVIDERS: PCP Internal Medicine; Visit Provider Advanced Practice Midwife ==

== ENCOUNTER 2022-07-13 11:53 | Outpatient (REF) | payer MEDICARE, MEDICAID, SELFPAY | END 2022-07-13 11:54 | disposition home or self-care (01) | LOC: HO.MDS 11:53 | PROVIDERS: Visit Provider Internal Medicine Pulmonary Disease | DX: J45.50 Severe persistent asthma, uncomplicated (principal) | CPT/HCPCS: 96372; J2357 ==

== ENCOUNTER 2022-07-21 11:57 | Outpatient (REF) | payer MEDICARE, MEDICAID, SELFPAY ==
--- NOTE | ~2022-07-21 | MM_ITS ---
EXAMINATION: MM SCREENING DIGITAL BREAST TOMOSYNTHESIS, BILATERAL CLINICAL INFORMATION: Screening. Asymptomatic. The lifetime risk of breast cancer based on the Tyrer-Cuzick Model is 3%. COMPARISON: Mammography: 02/10/2021, 03/10/2016 TECHNIQUE: Digital breast tomosynthesis is performed in both the craniocaudal and mediolateral oblique views along with computer-aided detection (CAD). Synthesized 2D images are generated from the tomosynthesis. Additional left MLO view is provided. FINDINGS: There are scattered areas of fibroglandular density (ACR BI-RADS breast composition Category b). There are no significant masses, abnormal calcifications, or other abnormalities. Parenchymal pattern is similar to prior studies. There is no developing density or architectural abnormality. The axilla and skin contours are unremarkable. No significant changes. MM/MM tomosynthesis screening BI IMPRESSION: No mammographic evidence of malignancy. ASSESSMENT: BI-RADS 1: Negative RECOMMENDATION: Routine annual mammography screening. This patient's information was entered into a reminder system with a target due date for their next mammogram.
== END 2022-07-21 11:58 | disposition home or self-care (01) ==
LOC: HO.MAMMO 11:57
PROVIDERS: PCP Internal Medicine; Visit Provider Internal Medicine
DX: Z12.31 Encounter for screening mammogram for malignant neoplasm of breast (principal)
CPT/HCPCS: 77063; 77067

== ENCOUNTER → 2022-08-03 11:00 | Outpatient (REF) | payer MEDICARE, MEDICAID, SELFPAY | LOC: HO.SL 11:00 | PROVIDERS: PCP Internal Medicine; Visit Provider Internal Medicine | DX: G47.33 Obstructive sleep apnea (adult) (pediatric) (principal); R40.0 Somnolence | CPT/HCPCS: 95806 ==

== ENCOUNTER 2022-08-10 11:57 | Outpatient (REF) | payer MEDICARE, MEDICAID, SELFPAY | END 2022-08-10 11:58 | disposition home or self-care (01) | LOC: HO.MDS 11:57 | PROVIDERS: Visit Provider Internal Medicine Pulmonary Disease | DX: J45.40 Moderate persistent asthma, uncomplicated (principal) | CPT/HCPCS: 96372; J2357 ==

== ENCOUNTER → 2022-08-17 10:34 | Outpatient (BNVA) | payer MEDICARE, MEDICAID, SELFPAY | PROVIDERS: PCP Internal Medicine; Visit Provider Internal Medicine Pulmonary Disease | DX: J45.50 Severe persistent asthma, uncomplicated (principal); Z91.09 Other allergy status, other than to drugs and biological substances; Z79.899 Other long term (current) drug therapy | CPT/HCPCS: 99212 ==

== ENCOUNTER → 2022-09-14 09:57 | Outpatient (BNVA) | payer MEDICARE, MEDICAID, SELFPAY | PROVIDERS: PCP Internal Medicine; Visit Provider Nurse Practitioner Family | DX: G47.33 Obstructive sleep apnea (adult) (pediatric) (principal); J45.50 Severe persistent asthma, uncomplicated | CPT/HCPCS: 99212 ==

== ENCOUNTER → 2022-09-30 12:41 | Outpatient (BNVA) | payer MEDICARE, MEDICAID, SELFPAY | PROVIDERS: PCP Internal Medicine; Referring Provider Internal Medicine; Visit Provider Internal Medicine Cardiovascular Disease | DX: R00.2 Palpitations (principal) | CPT/HCPCS: 93005; 99202 ==

== ENCOUNTER 2022-10-07 15:50 | Outpatient (AMB) | payer MEDICARE, MEDICAID, SELFPAY ==
--- NOTE | 2022-10-07 15:51 | A.OFFPC_ITS ---
Vital Signs 10/07/22 15:53 Height 5 ft 2 in Weight 165 lb BMI 30.2 BP 126/84 Blood Pressure Location Lt brachial Position Sitting Pulse 76 Pulse Source Pulse Oximeter Intake Visit Reasons: Physical Exam Intake Note: Patient here for a physical exam, c/o bilateral feet pain and swelling Restoration Technician Required: No Accompanied by: Self / Same As Patient Allergies peanut [PEANUT] Allergy (Severe, Verified 10/07/22 16:11) ANAPHYLAXIS penicillin G [Penicillin G] Allergy (Intermediate, Verified 10/07/22 16:11) RASH FRUIT Allergy (Severe, Uncoded 10/07/22 16:11) THROAT CLOSES Medication List - Last Reconciled 10/07/22 by Angelina Limon MD Advair HFA 115-21 mcg/actuation (fluticasone propion-salmeterol) 2 puffs inhalation Q12H 30 days NS albuterol sulfate 2.5 mg (3 mL) inhalation QID PRN 30 days amlodipine 10 mg PO DAILY cetirizine (Allergy Relief (cetirizine)) 10 mg PO BID PRN 90 days CPAP (CPAP Machine/Device) AutoCPAP 6-20 cmH2O cyclobenzaprine 10 mg PO BID PRN losartan 100 mg PO DAILY omalizumab 150 mg subcut Q4W pantoprazole 40 mg PO DAILY 90 days simvastatin 20 mg PO BEDTIME Ventolin HFA 90 mcg/actuation (albuterol sulfate) 2 puffs inhalation Q6H PRN 30 days NS Tobacco use date assessed: 06/09/22 Fall risk assessment: No Falls in past year Last assessed Fall Risk: 10/07/22 Dental Screening Dental Screen Date: 10/07/22 Did you have a dental visit in the last 12 months?: Yes Did you have a dental problem in the last 6 months where you did not have access to dental care?: No Was dental information given to patient?: Patient has dentist HPI HPI Comments History of Present Illness Details This is a 67-year-old female that comes for her physical exam. Last mammogram was 2022. Last colonoscopy was 2018. Last Pap smear was 2021. Complains of bilateral leg swelling most likely due to amlodipine. I will decrease amlodipine from 10 mg to 5 mg and start her on hydrochlorothiazide. Also complains of diffuse joint pain more prominent in the hands. [facility] Medical History (Updated 10/07/22 @ 16:22 by Angelina Limon MD) COVID-19 vaccine series completed GERD (gastroesophageal reflux disease) H/O nasal polyp HLD (hyperlipidemia) HTN (hypertension) Hypercalcemia Lumbago with sciatica, left side Melena Moderate persistent asthma, uncomplicated Skin cancer Surgical History H/O colonoscopy History of tonsillectomy Hx of arthroscopy of right knee Hx of nasal polypectomy Status post surgical removal of malignant neoplasm of skin Family History Daughter Mental health disorder Daughter Mental health disorder Father CAD (coronary artery disease) Diabetes mellitus Mother Alzheimer disease Essential hypertension Social History Household Members: Spouse Housing: House Alcohol intake: never Patient Tobacco Use Status: Never used Tobacco e-Cigarette/Vaping Use: Never Used Second Hand Smoke Exposure: No service: No Current occupational status: unemployed Sexual orientation: Straight/Heterosexual Gender identity: Female Cognitive needs: No Hearing needs: No Vision needs: Yes Questionnaire PHQ-9 Over the last 2 weeks, how often have you been bothered by any of the following problems? 1. Little interest or pleasure in doing things: not at all 2. Feeling down, depressed, or hopeless: several days 3. Trouble falling or staying asleep, or sleeping too much: several days 4. Feeling tired or having little energy: not at all 5. Poor appetite or overeating: not at all 6. Feeling bad about yourself - or that you are a failure or have let yourself or your family down: not at all 7. Trouble concentrating on things, such as reading the newspaper or watching television: not at all 8. Moving or speaking so slowly that other people could have noticed. Or the opposite - being so fidgety or restless that you have been moving around a lot more than usual: not at all 9. Thoughts that you would be better off or of hurting yourself in some way: not at all Total score: 2 Depression Screening Interpretation: Negative 26864 - PHQ-9 Billing: Yes Source: Developed by Mark Ricoet B.W. Jer, Mio Ling and colleagues, with an educational eloisa from [employer]. Thrive Questionnaire Date Thrive assessed: 03/30/22 MARÍA-7 AMB Questionnaire MARÍA-7 Date MARÍA - 7 assessed: 03/30/22 Source: Developed by Drs. Juan José Diaz, La Randle, Mio Ling and colleagues, with an educational eloisa from [employer]. Review of Systems Const All systems reviewed & are unremarkable except as noted in HPI and below Eyes Reports no additional complaints, Denies change in vision and Denies other visual disturbances Card Denies chest pain at rest, Denies chest pain with activity, Denies edema, Denies irregular heart rhythm, Denies claudication, Denies dyspnea, Denies dyspnea on exertion, Denies orthopnea, Denies paroxysmal nocturnal dyspnea and Denies slow heart rate Resp Denies cough, Denies dyspnea and Denies dyspnea on exertion GI Denies abdominal pain, Denies change in bowel habits, Denies excessive flatus, Denies nausea and Denies vomiting Denies urinary incontinence, Denies urinary hesitancy and Denies urinary urgency Musc Denies abnormal gait, Denies atrophy, Denies deformity and Denies limited range of motion Skin/Breast Denies bleeding lesions, Denies changing lesions and Denies rash Neuro Denies abnormal gait, Denies confusion and Denies lack of coordination Psych Denies confusion Physical exam (Primary Care) Vital Signs: Last Vital Signs Pulse 76 10/07/22 15:53 BP 126/84 10/07/22 15:53 BMI result Body Mass Index 30.2 Tobacco/Smoking Status: Tobacco use Status Tobacco use date assessed 06/09/22 10/07/22 16:00 Patient Tobacco Use Status Never used Tobacco 10/07/22 16:00 e-Cigarette/Vaping Use Never Used 10/07/22 16:00 PHQ-9: PHQ-9 Score PHQ-9: Total score 2 10/07/22 16:14 Depression Screening Interpretation: Negative Thrive Assessment: Date of Thrive Assessment Date Thrive assessed 03/30/22 10/07/22 16:00 Const General: No confusion Orientation/consciousness: patient oriented x3 and No confusion Eyes General: appearance normal, both eyes and all related structures Eyelids: Yes eyelids normal Conjunctivae: conjunctivae normal Neck Neck: Yes normal visual inspection and Yes supple Resp Effort & Inspection: normal respiratory effort Auscultation: clear to auscultation bilaterally Cardio Jugular venous distension: no JVD Rate: regular rate Rhythm: regular rhythm Heart sounds: S1 normal heart sound present and S2 normal heart sound present GI Inspection: Yes normal to inspection Palpation (GI): Soft to palpation and nontender Auscultation: normal bowel sounds Skin General skin exam: no rashes or lesions noted Neuro General: patient oriented x3, no focal motor deficits and No confusion Extrem General: Yes full ROM Psych Appearance: grossly normal Assessment and Plan Assessment & Plan (1) Physical exam: Code(s): Z00.00 - Encounter for general adult medical examination without abnormal findings Plan: Repeat in a year. Orders: Orders Comprehensive [place]. Panel Fast 4 Months I10 - Essential (primary) hypertension Lipid Panel 4 Months E78.5 - Hyperlipidemia, unspecified Referrals Rheumatology Referral M25.50 - Pain in unspecified joint Medications: New amlodipine 5 mg PO DAILY 90 tabs 1RF 90 days I10 - Essential (primary) hypertension hydrochlorothiazide 25 mg PO DAILY 90 tabs 0RF 90 days I10 - Essential (primary) hypertension Refilled cetirizine (Allergy Relief (cetirizine)) 10 mg PO BID PRN 90 tabs 0RF allergy symptoms 90 days Discontinued amlodipine Discontinued Reason: Patient Completed Course 10 mg PO DAILY 90 tabs 3RF Coding Level of Care Code Est Pt Prev Care >65y(28841) Diagnoses Physical exam Z00.00 Time Spent (min) 32
[2022-10-07 15:53] VITALS: BP 126/84; PULSE 76; BMI 30.2
== END 2022-10-07 16:22 | disposition home or self-care (01) ==
PROVIDERS: Visit Provider Internal Medicine
DX: Z00.00 Encounter for general adult medical examination without abnormal findings (principal)
CPT/HCPCS: 99397

== ENCOUNTER 2022-10-13 10:11 | Outpatient (AMB) | payer MEDICARE, MEDICAID, SELFPAY ==
--- NOTE | 2022-10-13 10:12 | MHC.OFFVIS ---
Intake Vital Signs 10/13/22 10:14 Weight 160 lb 14.999 oz BP 108/68 Blood Pressure Location Lt brachial Position Sitting Pulse 58 Pulse Source Pulse Oximeter Pulse Oximetry (%) 96 Oxygen Delivery Method Room Air Intake Visit Reasons: CPAP Pressure Issue Press Secretary Required: Yes Press Secretary Name: ID# [id number] Allergies peanut [PEANUT] Allergy (Severe, Verified 10/13/22 10:19) ANAPHYLAXIS penicillin G [Penicillin G] Allergy (Intermediate, Verified 10/13/22 10:19) RASH FRUIT Allergy (Severe, Uncoded 10/13/22 10:19) THROAT CLOSES Medication List - Last Reconciled 10/13/22 by Cara Coker LPN Advair HFA 115-21 mcg/actuation (fluticasone propion-salmeterol) 2 puffs inhalation Q12H 30 days NS albuterol sulfate 2.5 mg (3 mL) inhalation QID PRN 30 days amlodipine 5 mg PO DAILY 90 days cetirizine (Allergy Relief (cetirizine)) 10 mg PO BID PRN 90 days CPAP (CPAP Machine/Device) AutoCPAP 6-20 cmH2O cyclobenzaprine 10 mg PO BID PRN hydrochlorothiazide 25 mg PO DAILY 90 days losartan 100 mg PO DAILY omalizumab 150 mg subcut Q4W pantoprazole 40 mg PO DAILY 90 days simvastatin 20 mg PO BEDTIME Ventolin HFA 90 mcg/actuation (albuterol sulfate) 2 puffs inhalation Q6H PRN 30 days NS HPI CPAP Pressure Issue HPI Details Robyn is a pleasant 67 year old female who is followed for severe persistent asthma as well as KAMARI recently on CPAP therapy. At baseline her asthma is well controlled on Xolair, Advair and Ventolin MDI. Unfortunately, she reports she has not had Xolair since June due to insurance issues. Since the last visit, she has met with a respiratory therapist through [facility] and has switched to a nasal pillow mask. She has been able to tolerate therapy and has been using it 4-5 hours per night for the past few weeks. Unable to pull compliance report at this time. She also reports significant improvements in daytime fatigue since using consistently. The one complaint she has is she feels air leaking through her mouth. [facility] Medical History COVID-19 vaccine series completed GERD (gastroesophageal reflux disease) H/O nasal polyp HLD (hyperlipidemia) HTN (hypertension) Hypercalcemia Lumbago with sciatica, left side Melena Moderate persistent asthma, uncomplicated Skin cancer Surgical History H/O colonoscopy History of tonsillectomy Hx of arthroscopy of right knee Hx of nasal polypectomy Status post surgical removal of malignant neoplasm of skin Family History Daughter Mental health disorder Daughter Mental health disorder Father CAD (coronary artery disease) Diabetes mellitus Mother Alzheimer disease Essential hypertension Social History Household Members: Spouse Housing: House Alcohol intake: never Patient Tobacco Use Status: Never used Tobacco e-Cigarette/Vaping Use: Never Used Second Hand Smoke Exposure: No service: No Current occupational status: unemployed Sexual orientation: Straight/Heterosexual Gender identity: Female Cognitive needs: No Hearing needs: No Vision needs: Yes Review of Systems Const Denies excessive sweating, Denies fatigue, Denies fever(s), Denies lethargy, Denies malaise, Denies night sweats and Denies weight loss Eyes Denies blurry vision and Reports itchy eyes ENT Reports Normal hearing present, Denies nasal congestion, Denies post nasal drip, Denies sinus pain, Denies sinus pressure and Denies other ( Thrush) Card Denies chest pain, Denies pedal edema, Denies dyspnea, Denies orthopnea and Denies paroxysmal nocturnal dyspnea Resp Reports cough, Denies hemoptysis, Denies excessive phlegm production, Denies dyspnea and Denies wheezing GI Denies abdominal pain and Denies heartburn Musc Denies myalgias, Denies arthralgias and Denies joint swelling Skin/Breast Denies rash Neuro Reports Normal hearing present, Denies memory loss and Denies seizure-like activity Psych Denies abnormal sleep pattern, Denies anxiety and Denies memory loss Endo Denies excessive sweating, Denies fatigue and Denies heat intolerance Tha/Lymph Denies easy bruising Aller/Immun Reports itchy eyes, Reports seasonal rhinorrhea and Denies wheezing Physical Exam Vital Signs: Last Vital Signs Pulse 58 10/13/22 10:14 BP 108/68 10/13/22 10:14 Pulse Ox 96 10/13/22 10:14 Oxygen Delivery Method Room Air 10/13/22 10:14 Const General: cooperative, healthy appearing, comfortable, no acute distress, well developed and alert Orientation/consciousness: patient oriented x3 Limitations: no limitations HEENT Head: Yes normal to inspection, Yes normocephalic and Yes atraumatic Ears: hearing grossly normal bilaterally and external ears normal Eyes General: appearance normal, both eyes and all related structures Eyelids: Yes eyelids normal Sclerae: sclerae normal EOM: EOMs intact bilaterally Neck Neck: Yes normal visual inspection and Yes no lymphadenopathy Lymphatic: no lymphadenopathy noted Chest Chest palpation & inspection: normal inspection of the chest Resp Effort & Inspection: normal respiratory effort, able to speak in complete sentences, no audible wheezes, no cough, no stridor, not tachypneic, no tripod positioning and no use of accessory muscles Auscultation: clear to auscultation bilaterally Cardio Jugular venous distension: no JVD Rate: regular rate Rhythm: regular rhythm Skin Other: warm, dry General skin exam: no rashes or lesions noted Neuro General: patient oriented x3 Cranial nerves: Yes Normal hearing present Cognition (Neuro): normal cognition Gait exam (Neuro): Normal gait present Extrem General: Yes normal to inspection, Yes capillary refill normal, Yes no clubbing, cyanosis or edema and Yes no pedal edema Psych Appearance: grossly normal and well kempt Speech and movement: Normal speech and movement present and Clear speech present Affect: normal affect Attitude: cooperative Thought process: Normal thought process present Thought content: Normal thought content present Insight: Good insight present (Psych) Judgement: Good judgement present (Psych) Assessment & Plan Assessment & Plan (1) KAMARI (obstructive sleep apnea): Code(s): G47.33 - Obstructive sleep apnea (adult) (pediatric) (2) Asthma: Code(s): J45.909 - Unspecified asthma, uncomplicated Plan Patient tolerating CPAP therapy after switching to nasal mask. Will send in chin strap to help with oral air leak. Will sign patient up through [facility] so we can view compliance report to confirm consistent use. Will discuss with Cara Farris insurance issue so patient can restart Xolair, as she had good response. All questions were answered and patient is in agreement of plan. Will follow up with Dr. Duenas in six months. Coding Level of Care Code Est Pt Level 3 (24815) Diagnoses KAMARI (obstructive sleep apnea) G47.33 Asthma J45.909
[2022-10-13 10:14] VITALS: BP 108/68; PULSE 58; O2SAT 96
== END 2022-10-13 10:32 | disposition home or self-care (01) ==
PROVIDERS: PCP Internal Medicine; Visit Provider Nurse Practitioner Family
DX: G47.33 Obstructive sleep apnea (adult) (pediatric) (principal); J45.909 Unspecified asthma, uncomplicated
CPT/HCPCS: 99213

== ENCOUNTER → 2022-10-13 10:11 | Outpatient (BNVA) | payer MEDICARE, MEDICAID, SELFPAY | PROVIDERS: PCP Internal Medicine; Visit Provider Nurse Practitioner Family | DX: G47.33 Obstructive sleep apnea (adult) (pediatric) (principal); J45.909 Unspecified asthma, uncomplicated | CPT/HCPCS: 99212 ==

== ENCOUNTER 2022-10-25 14:00 | Outpatient (REF) | payer MEDICARE, MEDICAID, SELFPAY | END 2022-10-25 14:01 | disposition home or self-care (01) | LOC: HO.MDS 14:00 | PROVIDERS: Visit Provider Internal Medicine Pulmonary Disease | DX: J45.50 Severe persistent asthma, uncomplicated (principal) | CPT/HCPCS: 96372; J2357 ==

== ENCOUNTER 2022-11-22 14:04 | Outpatient (REF) | payer MEDICARE, OTHER, SELFPAY | END 2022-11-22 14:05 | disposition home or self-care (01) | LOC: HO.MDS 14:04 | PROVIDERS: Visit Provider Internal Medicine Pulmonary Disease | DX: J45.40 Moderate persistent asthma, uncomplicated (principal) | CPT/HCPCS: 96372 ==

== ENCOUNTER 2022-12-07 13:36 | Outpatient (AMB) | payer MEDICARE, SELFPAY ==
[2022-12-07 14:08] VITALS: BP 100/74; PULSE 50; BMI 29.4
--- NOTE | 2022-12-07 14:08 | MHC.OFFVIS ---
Intake Vital Signs 12/07/22 14:08 Height 5 ft 2 in Weight 160 lb 14.999 oz BMI 29.4 BP 100/74 Blood Pressure Location Lt brachial Position Sitting Pulse 50 Pulse Source Pulse Oximeter Intake Visit Reasons: 2 month follow up after testing Intake Note: 2 th f/u Chemical Tank Worker Required: Yes Chemical Tank Worker Name: [email or web address] [email or web address] [id number] Allergies peanut [PEANUT] Allergy (Severe, Verified 12/07/22 14:16) ANAPHYLAXIS penicillin G [Penicillin G] Allergy (Intermediate, Verified 12/07/22 14:16) RASH FRUIT Allergy (Severe, Uncoded 10/13/22 10:19) THROAT CLOSES Medication List - Last Reconciled 12/07/22 by BO Zuniga Advair HFA 115-21 mcg/actuation (fluticasone propion-salmeterol) 2 puffs inhalation Q12H 30 days NS albuterol sulfate 2.5 mg (3 mL) inhalation QID PRN 30 days amlodipine 5 mg PO DAILY 90 days cetirizine (Allergy Relief (cetirizine)) 10 mg PO BID PRN 90 days CPAP (CPAP Machine/Device) AutoCPAP 6-20 cmH2O cyclobenzaprine 10 mg PO BID PRN fluticasone propionate 50 mcg/actuation sprays intranasal hydrochlorothiazide 25 mg PO DAILY 90 days losartan 100 mg PO DAILY omalizumab 150 mg subcut Q4W pantoprazole 40 mg PO DAILY 90 days simvastatin 20 mg PO BEDTIME Ventolin HFA 90 mcg/actuation (albuterol sulfate) 2 puffs inhalation Q6H PRN 30 days NS HPI 2 month follow up after testing HPI Details Robyn is a 67-year-old female past medical history of hypertension, hyperlipidemia, sleep apnea who was recently evaluated for heart palpitations. She underwent a Holter monitor showing only rare PVCs. On last visit a 30 day cardiac event monitor was mentioned however not ordered. Today she reports that she no longer has concerning palpitations. She previously was feeling rapid heartbeats that caused her concern. She has been noticing some lightheadedness which occurs at times and feels that it may be related to her blood pressure. She has had no recent medication changes. No shortness of breath, presyncope, syncope, falls. No PND, orthopnea. She has had some lower leg edema. Taking meds as directed. She walks routinely for exercise. [facility], [facility] Medical History Skin cancer COVID-19 vaccine series completed Melena Moderate persistent asthma, uncomplicated Hypercalcemia Lumbago with sciatica, left side H/O nasal polyp GERD (gastroesophageal reflux disease) HLD (hyperlipidemia) HTN (hypertension) Surgical History Status post surgical removal of malignant neoplasm of skin H/O colonoscopy Hx of nasal polypectomy Hx of arthroscopy of right knee History of tonsillectomy Family History Daughter Mental health disorder Daughter Mental health disorder Father CAD (coronary artery disease) Diabetes mellitus Mother Alzheimer disease Essential hypertension Social History Household Members: Spouse Housing: House Alcohol intake: never Patient Tobacco Use Status: Never used Tobacco e-Cigarette/Vaping Use: Never Used Second Hand Smoke Exposure: No service: No Current occupational status: unemployed Sexual orientation: Straight/Heterosexual Gender identity: Female Cognitive needs: No Hearing needs: No Vision needs: Yes Review of Systems Const All systems reviewed & are unremarkable except as noted in HPI and below ENT Reports dizziness Card Details: Heart palpitations have improved Denies chest pain, Denies chest pain at rest, Denies chest pain with activity, Denies rapid heart rate, Denies pedal edema, Denies edema, Denies leg edema, Denies lightheadedness, Denies palpitations, Denies dyspnea, Denies dyspnea on exertion and Denies orthopnea Resp Denies cough, Denies dyspnea and Denies dyspnea on exertion GI Denies hematochezia and Denies change in stool character Musc Denies abnormal gait, Denies limited range of motion, Denies muscle cramps, Denies muscle weakness, Denies numbness, Denies radiating pain into limb, Denies stiffness and Denies tingling Neuro Denies abnormal gait, Reports dizziness, Denies numbness and Denies tingling Endo Denies palpitations Physical Exam Vital Signs: Last Vital Signs Pulse 50 12/07/22 14:08 BP 100/74 09/12/23 14:08 BMI result Body Mass Index 29.4 Const General: cooperative, healthy appearing, comfortable and no acute distress Orientation/consciousness: patient oriented x3 Neck Neck: Yes normal visual inspection Resp Effort & Inspection: normal respiratory effort Auscultation: clear to auscultation bilaterally, no crackles, no rales, no rhonchi and no wheezes Cardio Jugular venous distension: no JVD Rate: regular rate Rhythm: regular rhythm Heart sounds: S1 normal heart sound present, S2 normal heart sound present, no murmurs and no rubs Neuro General: patient oriented x3 Extrem General: Yes normal to inspection and No no pedal edema Psych Appearance: grossly normal Mental Status: mental status grossly normal Speech and movement: Normal speech and movement present Assessment & Plan Assessment & Plan (1) Intermittent palpitations: Code(s): R00.2 - Palpitations Plan: Prior reports of heart palpitations which feel like quick fast heartbeats causing her much concern. A Holter monitor done on 06/14/2022 for 3 days showed normal sinus rhythm with average heart rate 76, no significant pauses or bradycardia, very rare PVCs. On last visit note indicates that a cardiac event monitor would be ordered however no order was entered. Today she reports she has been doing well overall and no longer has heart palpitations. She says they went away . Will hold off on further testing at this time. She will continue to avoid stimulants, maintain activity as tolerated. ED care if ever needed for concerning symptoms. If she does report recurrent palpitations then will consider repeat Holter monitor versus cardiac event monitor. Cardiology follow-up in 6 months, sooner if needed (2) KAMARI (obstructive sleep apnea): Code(s): G47.33 - Obstructive sleep apnea (adult) (pediatric) Plan: History of obstructive sleep apnea and she reports compliance with her CPAP mask. (3) PVC (premature ventricular contraction): Code(s): I49.3 - Ventricular premature depolarization Plan: Rare PVCs noted on prior Holter monitor reading. (4) HTN (hypertension): Code(s): I10 - Essential (primary) hypertension Qualifiers: Hypertension type: primary hypertension Qualified Code(s): I10 - Essential (primary) hypertension Plan: History of hypertension. Currently on amlodipine, hydrochlorothiazide and losartan. Initial reading in our office as checked by the medical claims specialist was 100/74. Recheck done by me sitting 122/80, standing 130/82. She does report some intermittent lightheadedness, not clearly with sitting to standing. She is not orthostatic on examination. Will have her continue current medications. If her blood pressures do run low consistently the amlodipine can be stopped. She says the hydrochlorothiazide is to help reduce her mild leg swelling. Instructed to increase her hydration, avoid dehydration, ongoing activity as tolerated. (5) Lightheadedness: Code(s): R42 - Dizziness and giddiness Plan: As above, no presyncope, syncope, falls. Not orthostatic today. Coding Level of Care Code Est Pt Level 3 (60149) Diagnoses Intermittent palpitations R00.2 KAMARI (obstructive sleep apnea) G47.33 PVC (premature ventricular contraction) I49.3 Primary hypertension I10 Hypertension type: primary hypertension Lightheadedness R42 Time Spent (min) 22
== END 2022-12-07 14:36 | disposition home or self-care (01) ==
PROVIDERS: PCP Internal Medicine; Referring Provider Internal Medicine; Visit Provider Nurse Practitioner Family
DX: R00.2 Palpitations (principal); G47.33 Obstructive sleep apnea (adult) (pediatric); I49.3 Ventricular premature depolarization; I10 Essential (primary) hypertension; R42 Dizziness and giddiness
CPT/HCPCS: 99213

== ENCOUNTER → 2022-12-07 13:36 | Outpatient (BNVA) | payer MEDICARE, MEDICAID, SELFPAY | PROVIDERS: PCP Internal Medicine; Referring Provider Internal Medicine; Visit Provider Nurse Practitioner Family | DX: R00.2 Palpitations (principal); G47.33 Obstructive sleep apnea (adult) (pediatric); I49.3 Ventricular premature depolarization; I10 Essential (primary) hypertension; R42 Dizziness and giddiness; Z79.899 Other long term (current) drug therapy | CPT/HCPCS: 99212 ==

== ENCOUNTER 2022-12-08 13:58 | Outpatient (AMB) | payer MEDICARE, SELFPAY ==
[2022-12-08 13:59] VITALS: BP 118/67; PULSE 64; O2SAT 95
--- NOTE | 2022-12-08 13:59 | A.OFFVIS_ITS ---
Intake Vital Signs 12/08/22 13:59 Weight 160 lb 14.999 oz BP 118/67 Blood Pressure Location Lt brachial Position Sitting Pulse 64 Pulse Source Doppler Pulse Oximetry (%) 95 Oxygen Delivery Method Room Air Intake Visit Reasons: asthma Allergies peanut [PEANUT] Allergy (Severe, Verified 12/08/22 14:02) ANAPHYLAXIS penicillin G [Penicillin G] Allergy (Intermediate, Verified 12/08/22 14:02) RASH FRUIT Allergy (Severe, Uncoded 10/13/22 10:19) THROAT CLOSES HPI asthma HPI Details 67-year-old lady, nonsmoker, followed f or underlying severe persistent allergic asthma. After the last office visit she has been restarted on Xolair and continued on Advair with albuterol MDI with good control of her underlying asthma. She denies any recent exacerbations. Patient also has been using her CPAP machine with good control of her underlying obstructive sleep apnea symptoms. She denies any recent exacerbations. [facility] Medical History Skin cancer COVID-19 vaccine series completed Melena Moderate persistent asthma, uncomplicated Hypercalcemia Lumbago with sciatica, left side H/O nasal polyp GERD (gastroesophageal reflux disease) HLD (hyperlipidemia) HTN (hypertension) Surgical History Status post surgical removal of malignant neoplasm of skin H/O colonoscopy Hx of nasal polypectomy Hx of arthroscopy of right knee History of tonsillectomy Family History Daughter Mental health disorder Daughter Mental health disorder Father CAD (coronary artery disease) Diabetes mellitus Mother Alzheimer disease Essential hypertension Social History Household Members: Spouse Housing: House Alcohol intake: never Patient Tobacco Use Status: Never used Tobacco e-Cigarette/Vaping Use: Never Used Second Hand Smoke Exposure: No service: No Current occupational status: unemployed Sexual orientation: Straight/Heterosexual Gender identity: Female Cognitive needs: No Hearing needs: No Vision needs: Yes Review of Systems Const Denies daytime sleepiness, Denies excessive sweating, Denies fatigue, Denies fever(s), Denies lethargy, Denies malaise, Denies night sweats, Denies snoring and Denies weight loss Eyes Denies blurry vision and Denies itchy eyes ENT Denies nasal congestion, Denies post nasal drip, Denies sinus pain, Denies sinus pressure and Denies other ( Thrush) Card Denies chest pain, Denies pedal edema, Denies dyspnea, Denies orthopnea and Denies paroxysmal nocturnal dyspnea Resp Denies cough, Denies hemoptysis, Denies excessive phlegm production, Denies dyspnea, Denies snoring and Denies wheezing GI Denies abdominal pain and Denies heartburn Musc Denies myalgias, Denies arthralgias and Denies joint swelling Skin/Breast Denies rash Neuro Denies memory loss and Denies seizure-like activity Psych Denies abnormal sleep pattern, Denies anxiety and Denies memory loss Endo Denies excessive sweating, Denies fatigue and Denies heat intolerance Tha/Lymph Denies easy bruising Aller/Immun Denies itchy eyes, Denies seasonal rhinorrhea and Denies wheezing Physical Exam Vital Signs: Last Vital Signs Pulse 64 12/08/22 13:59 BP 118/67 12/08/22 13:59 Pulse Ox 95 12/08/22 13:59 Oxygen Delivery Method Room Air 12/08/22 13:59 Const General: no acute distress and alert Nutritional Appearance: not obese Orientation/consciousness: Other orientation findings ( oriented) HEENT Head: Yes atraumatic Eyes General: appearance normal, both eyes and all related structures Sclerae: sclerae normal EOM: EOMs intact bilaterally Neck Neck: Yes supple Lymphatic: no lymphadenopathy noted Resp Effort & Inspection: normal respiratory effort and no use of accessory muscles Auscultation: clear to auscultation bilaterally Cardio Rate: regular rate Rhythm: regular rhythm Heart sounds: no gallops, no murmurs and no rubs Skin General skin exam: other ( warm) Extrem General: No clubbing, No cyanosis and No edema Assessment & Plan Assessment & Plan (1) Asthma: Code(s): J45.909 - Unspecified asthma, uncomplicated Plan: Well controlled on current regimen of Xolair, Advair, and albuterol MDI. Continue current regimen. (2) Environmental allergies: Code(s): Z91.09 - Other allergy status, other than to drugs and biological substances Plan: Well controlled on Xolair. Continue current regimen. (3) KAMARI (obstructive sleep apnea): Code(s): G47.33 - Obstructive sleep apnea (adult) (pediatric) Plan: Patient has been using her CPAP machine with good control of her underlying obstructive sleep apnea. Continue current CPAP therapy. Coding Level of Care Code Est Pt Level 4 (43304) Diagnoses Asthma J45.909 Environmental allergies Z91.09 KAMARI (obstructive sleep apnea) G47.33
== END 2022-12-08 14:12 | disposition home or self-care (01) ==
PROVIDERS: PCP Internal Medicine; Visit Provider Internal Medicine Pulmonary Disease
DX: J45.909 Unspecified asthma, uncomplicated (principal); Z91.09 Other allergy status, other than to drugs and biological substances; G47.33 Obstructive sleep apnea (adult) (pediatric)
CPT/HCPCS: 99214

== ENCOUNTER → 2022-12-08 13:58 | Outpatient (BNVA) | payer MEDICARE, MEDICAID, SELFPAY | PROVIDERS: PCP Internal Medicine; Visit Provider Internal Medicine Pulmonary Disease | DX: J45.909 Unspecified asthma, uncomplicated (principal); G47.33 Obstructive sleep apnea (adult) (pediatric); Z91.09 Other allergy status, other than to drugs and biological substances | CPT/HCPCS: 99212 ==

== ENCOUNTER 2022-12-30 08:39 | Outpatient (AMB) | payer MEDICARE, MEDICAID, SELFPAY ==
[2022-12-30 08:44] VITALS: BP 138/62; PULSE 60; TEMP 36.8; O2SAT 98; BMI 29.4
--- NOTE | 2022-12-30 08:44 | MHC.OFFVIS ---
Intake Vital Signs 12/30/22 08:44 Height 5 ft 2 in Weight 160 lb 11.472 oz BMI 29.4 BP 138/62 Blood Pressure Location Rt brachial Position Sitting Pulse 60 Pulse Source Pulse Oximeter Temp 98.3 F Temp Source Skin Pulse Oximetry (%) 98 Intake Visit Reasons: Joint Pain Intake Note: legs, knees, feet, Pottery Decoration Designer Name: [id number] Information Interpreted: clinical only Accompanied by: Self / Same As Patient Allergies peanut [PEANUT] Allergy (Severe, Verified 12/30/22 08:46) ANAPHYLAXIS penicillin G [Penicillin G] Allergy (Intermediate, Verified 12/30/22 08:46) RASH FRUIT Allergy (Severe, Uncoded 12/30/22 08:46) THROAT CLOSES HPI HPI Comments History of Present Illness Details This is a 67-year-old female who presents for evaluation of multiple joint pain. Patient states that she has had diffuse joint pain for long period of time but over the last 6 months it has been worse. She has pain in her neck, shoulders, elbows, hands, knees, lower back. The pain in her elbows is worse with twisting activities. She states that she was diagnosed with sciatica and received injections in the past, she is scheduled for another injection in her back on the . Patient went to urgent care a few days ago for flu-like symptoms and was diagnosed with the flu and asthma. She is coughing today [facility] Medical History Skin cancer COVID-19 vaccine series completed Melena Moderate persistent asthma, uncomplicated Hypercalcemia Lumbago with sciatica, left side H/O nasal polyp GERD (gastroesophageal reflux disease) HLD (hyperlipidemia) HTN (hypertension) Surgical History Status post surgical removal of malignant neoplasm of skin H/O colonoscopy Hx of nasal polypectomy Hx of arthroscopy of right knee History of tonsillectomy Family History Daughter Mental health disorder Daughter Mental health disorder Father CAD (coronary artery disease) Diabetes mellitus Mother Alzheimer disease Essential hypertension Social History Household Members: Spouse Housing: House Alcohol intake: never Patient Tobacco Use Status: Never used Tobacco e-Cigarette/Vaping Use: Never Used Second Hand Smoke Exposure: No service: No Current occupational status: unemployed Sexual orientation: Straight/Heterosexual Gender identity: Female Cognitive needs: No Hearing needs: No Vision needs: Yes Review of Systems Const Reports fatigue and Reports weakness ENT Reports neck pain Card Reports dyspnea Resp Reports cough, Reports dyspnea and Reports wheezing Musc Reports back pain, Reports arthralgias, Reports neck pain, Reports radiating pain into limb and Reports stiffness Neuro Reports weakness Endo Reports fatigue Aller/Immun Reports wheezing Physical Exam Vital Signs: Last Vital Signs Temp 98.3 F 12/30/22 08:44 Pulse 60 12/30/22 08:44 BP 138/62 12/30/22 08:44 Pulse Ox 98 12/30/22 08:44 BMI result Body Mass Index 29.4 Const General: cooperative Nutritional Appearance: overweight Orientation/consciousness: patient oriented x3 Limitations: no limitations HEENT Other: patient wearing a mask Head: Yes normocephalic and Yes atraumatic Mouth: moist mucous membranes Resp Effort & Inspection: normal respiratory effort and able to speak in complete sentences Skin General skin exam: no rashes or lesions noted Neuro General: patient oriented x3 Extrem Other: Mild osteoarthritic changes of both hands with no active synovitis Tenderness at the common extensor origin bilaterally with negative resisted wrist extension test Few fibromyalgia tender points Positive straight leg raise test bilaterally Assessment & Plan Assessment & Plan (1) Bilateral tennis elbow: Code(s): M77.11 - Lateral epicondylitis, right elbow; M77.12 - Lateral epicondylitis, left elbow Plan: This is a 67-year-old female was referred for evaluation of diffuse pain. 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 Patient received injections in her back in the past and is due for another injection this month. I gave patient a printout of exercises to do at home for tennis elbow. Follow-up as needed Plan I spent 20 minutes reviewing patient's chart, evaluating patient,counseling patient and documenting in the chart Coding Level of Care Code Est Pt Level 3 (99395) Diagnoses Bilateral tennis elbow M77.11; M77.12
== END 2022-12-30 10:09 | disposition home or self-care (01) ==
PROVIDERS: PCP Internal Medicine; Visit Provider Student in an Organized Health Care Education/Training Program
DX: M77.11 Lateral epicondylitis, right elbow (principal); M77.12 Lateral epicondylitis, left elbow
CPT/HCPCS: 99213

== ENCOUNTER → 2022-12-30 08:39 | Outpatient (BNVA) | payer MEDICARE, MEDICAID, SELFPAY | PROVIDERS: PCP Internal Medicine; Visit Provider Student in an Organized Health Care Education/Training Program | DX: M77.11 Lateral epicondylitis, right elbow (principal); M77.12 Lateral epicondylitis, left elbow | CPT/HCPCS: 99212 ==

== ENCOUNTER 2023-01-11 12:46 | Outpatient (REF) | payer MEDICARE, MEDICAID, SELFPAY | END 2023-01-11 12:47 | disposition home or self-care (01) | LOC: HO.MDS 12:46 | PROVIDERS: Visit Provider Internal Medicine Pulmonary Disease | DX: J45.50 Severe persistent asthma, uncomplicated (principal) | CPT/HCPCS: 96372; J2357 ==

== ENCOUNTER 2023-02-08 14:16 | Outpatient (REF) | payer MEDICARE, MEDICAID, SELFPAY | END 2023-02-08 14:17 | disposition home or self-care (01) | LOC: HO.MDS 14:16 | PROVIDERS: Visit Provider Internal Medicine Pulmonary Disease | DX: J45.50 Severe persistent asthma, uncomplicated (principal) | CPT/HCPCS: 96372 ==

== ENCOUNTER 2023-03-17 13:03 | Outpatient (REF) | payer OTHER, SELFPAY | END 2023-03-17 13:04 | disposition home or self-care (01) | LOC: HO.MDS 13:03 | PROVIDERS: PCP Internal Medicine; Visit Provider Internal Medicine Pulmonary Disease | DX: J45.50 Severe persistent asthma, uncomplicated (principal) | CPT/HCPCS: 96372; J2357 ==

== ENCOUNTER 2023-04-07 13:59 | Outpatient (AMB) | payer OTHER, SELFPAY ==
--- NOTE | 2023-04-07 14:01 | MHC.PC.OV ---
Vital Signs 04/07/23 14:05 Height 5 ft 2 in Weight 162 lb BMI 29.6 BP 118/80 Blood Pressure Location Lt brachial Position Sitting Intake Visit Reasons: Lipids Intake Note: Patient here for a follow up lipids Cigarette Lighter Repairer Required: No Accompanied by: Self / Same As Patient Allergies peanut [PEANUT] Allergy (Severe, Verified 04/07/23 14:24) ANAPHYLAXIS penicillin G [Penicillin G] Allergy (Intermediate, Verified 04/07/23 14:24) RASH FRUIT Allergy (Severe, Uncoded 04/07/23 14:24) THROAT CLOSES Medication List - Last Reconciled 04/07/23 by Angelina Limon MD Advair HFA 115-21 mcg/actuation (fluticasone propion-salmeterol) 2 puffs inhalation Q12H 30 days NS albuterol sulfate 2.5 mg (3 mL) inhalation QID PRN 30 days amlodipine 5 mg PO DAILY 90 days cetirizine (Allergy Relief (cetirizine)) 10 mg PO BID PRN 90 days CPAP (CPAP Machine/Device) AutoCPAP 6-20 cmH2O fluticasone propionate 50 mcg/actuation sprays intranasal hydrochlorothiazide 25 mg PO DAILY 90 days losartan 100 mg PO DAILY omalizumab 150 mg subcut Q4W pantoprazole 40 mg PO DAILY 90 days simvastatin 20 mg PO BEDTIME Tobacco use date assessed: 04/07/23 Fall risk assessment: No Falls in past year Last assessed Fall Risk: 04/07/23 Dental Screening Dental Screen Date: 04/07/23 Did you have a dental visit in the last 12 months?: Yes Did you have a dental problem in the last 6 months where you did not have access to dental care?: No Was dental information given to patient?: Patient has dentist HPI HPI Comments History of Present Illness Details This is a 68-year-old female with hypertension, hyperlipidemia, moderate persistent asthma and GERD that comes today for follow-up on her conditions. Blood pressure stable. Cholesterol stable with statins and reports no side effects. Asthma well controlled with long acting inhaler and this is follow by pulmonology. GERD stable with PPIs. Denies any chest pain or shortness of breath. Complains of bilateral shoulder pain with limited elevation but declines physical therapy at the moment. [facility] Medical History Skin cancer COVID-19 vaccine series completed Melena Moderate persistent asthma, uncomplicated Hypercalcemia Lumbago with sciatica, left side H/O nasal polyp GERD (gastroesophageal reflux disease) HLD (hyperlipidemia) HTN (hypertension) Surgical History Status post surgical removal of malignant neoplasm of skin H/O colonoscopy Hx of nasal polypectomy Hx of arthroscopy of right knee History of tonsillectomy Family History Daughter Mental health disorder Daughter Mental health disorder Father CAD (coronary artery disease) Diabetes mellitus Mother Alzheimer disease Essential hypertension Social History Household Members: Spouse Housing: House Alcohol intake: never Patient Tobacco Use Status: Never used Tobacco e-Cigarette/Vaping Use: Never Used Second Hand Smoke Exposure: No service: No Current occupational status: unemployed Sexual orientation: Straight/Heterosexual Gender identity: Female Cognitive needs: No Hearing needs: No Vision needs: Yes Questionnaire PHQ-9 Over the last 2 weeks, how often have you been bothered by any of the following problems? 1. Little interest or pleasure in doing things: not at all 2. Feeling down, depressed, or hopeless: not at all 3. Trouble falling or staying asleep, or sleeping too much: not at all 4. Feeling tired or having little energy: not at all 5. Poor appetite or overeating: not at all 6. Feeling bad about yourself - or that you are a failure or have let yourself or your family down: not at all 7. Trouble concentrating on things, such as reading the newspaper or watching television: not at all 8. Moving or speaking so slowly that other people could have noticed. Or the opposite - being so fidgety or restless that you have been moving around a lot more than usual: not at all 9. Thoughts that you would be better off or of hurting yourself in some way: not at all Total score: 0 Depression Screening Interpretation: Negative Depression Screening Done: Yes 41915 - PHQ-9 Billing: Yes Source: Developed by Drs. Juan José Diaz, Mio Escalera and colleagues, with an educational eloisa from [employer]. Thrive Questionnaire Date Thrive assessed: 04/07/23 I am a: Patient What is your living situation today?: I have a steady place to live Within the past 12 months, did the food you bought not last and you didn't have the money to get more?: Never true Within the past 12 months, did you worry whether your food would run out before you got money to buy more?: Never true Do you have trouble paying for medicines?: No Do you have trouble getting transportation to medical appointments?: No Do you have trouble paying your heating and electricity bill?: No Do you have trouble taking care of your child, family member or friend?: No Do you have trouble with day-to-day activities such as bathing, preparing meals, shopping, managing finances, etc.?: No Are you currently unemployed and looking for a job?: No Are you interested in more education?: No Please select the resources that you would like help with: None Currently or been in a relationship where the following occur: no concerns reported AUDIT C Alcohol Use Questionnaire (AUDIT-C) 1. How often do you have a drink containing alcohol?: Never Total Score: 0 Score Reviewed/Action Taken: No MARÍA-7 AMB Questionnaire MARÍA-7 Date MARÍA - 7 assessed: 04/07/23 Feeling nervous, anxious, or on edge: 0 = Not at all Not being able to stop or control worryin = Not at all Worrying too much about different things: 0 = Not at all Trouble relaxin = Not at all Being so restless that it is hard to sit still: 0 = Not at all Becoming easily annoyed or irritable: 0 = Not at all Feeling afraid as if something awful might happen: 0 = Not at all Total MARÍA-7 score (0-4 normal; 5-9 mild; 10-14 moderate; 15-21 severe): 0 Source: Developed by Drs. Juan José Diaz, Mio Escalera and colleagues, with an educational eloisa from [employer]. MARÍA-7 Assessment Billing MARÍA-7 Assessment Tool: MARÍA-7 Assessment 23452 Review of Systems Const All systems reviewed & are unremarkable except as noted in HPI and below Eyes Reports no additional complaints, Denies change in vision and Denies other visual disturbances Card Denies chest pain at rest, Denies chest pain with activity, Denies edema, Denies irregular heart rhythm, Denies claudication, Denies dyspnea, Denies dyspnea on exertion, Denies orthopnea, Denies paroxysmal nocturnal dyspnea and Denies slow heart rate Resp Denies cough, Denies dyspnea and Denies dyspnea on exertion GI Denies abdominal pain, Denies change in bowel habits, Denies excessive flatus, Denies nausea and Denies vomiting Denies urinary incontinence, Denies urinary hesitancy and Denies urinary urgency Musc Denies abnormal gait, Denies atrophy, Denies deformity and Denies limited range of motion Skin/Breast Denies bleeding lesions, Denies changing lesions and Denies rash Neuro Denies abnormal gait, Denies behavioral changes and Denies lack of coordination Psych Denies behavioral changes Physical exam (Primary Care) Vital Signs: Last Vital Signs BP 118/80 04/07/23 14:05 BMI result Body Mass Index 29.6 Tobacco/Smoking Status: Tobacco use Status Tobacco use date assessed 04/07/23 04/07/23 14:13 Patient Tobacco Use Status Never used Tobacco 04/07/23 14:05 e-Cigarette/Vaping Use Never Used 04/07/23 14:05 PHQ-9: PHQ-9 Score PHQ-9: Total score 0 04/07/23 14:35 Depression Screening Interpretation: Negative Thrive Assessment: Date of Thrive Assessment Date Thrive assessed 04/07/23 04/07/23 14:13 Currently or been in a relationship where the following occur: no concerns reported Eyes General: appearance normal, both eyes and all related structures Eyelids: Yes eyelids normal Conjunctivae: conjunctivae normal Neck Neck: Yes normal visual inspection and Yes supple Resp Effort & Inspection: normal respiratory effort Auscultation: clear to auscultation bilaterally Cardio Jugular venous distension: no JVD Rate: regular rate Rhythm: regular rhythm Heart sounds: S1 normal heart sound present and S2 normal heart sound present Extrem General: Yes full ROM Office Procedures Flu Questionnaire Does the patient have a severe egg allergy?: No Immunizations flu vacc [id number] 6mos up(PF) 60 mcg(15 mcgx4)/0.5 mL IM syringe Performing Provider: Angelina Limon MD [facility] [place] [facility] Documented (not given) by: ISMAEL Yeh on 04/07/23 14:35 Reason Not Given: Not Given Assessment and Plan Assessment & Plan (1) HTN (hypertension): Code(s): I10 - Essential (primary) hypertension Qualifiers: Hypertension type: primary hypertension Qualified Code(s): I10 - Essential (primary) hypertension Plan: Continue amlodipine. Blood pressure goal is equal or less than 130/80. (2) HLD (hyperlipidemia): Code(s): E78.5 - Hyperlipidemia, unspecified Plan: Continue statins. Repeat lipid panel. (3) Moderate persistent asthma, uncomplicated: Code(s): J45.40 - Moderate persistent asthma, uncomplicated Plan: Continue long-acting inhaler. Use rescue inhaler as needed. Follow-up with pulmonology. (4) GERD (gastroesophageal reflux disease): Comment: EGD reviewed-report/path-and photos Continue PPI - however take 30 minutes before breakfast (she was taking right after breakfast ) avoid culprits Code(s): K21.9 - Gastro-esophageal reflux disease without esophagitis Plan: Continue PPIs as needed. Orders: Orders Lipid Panel 6 Months E78.5 - Hyperlipidemia, unspecified Vitamin D 25-OH Total 6 Months E55.9 - Vitamin D deficiency, unspecified Comprehensive [place]. Panel Fast 6 Months K21.9 - Gastro-esophageal reflux disease without esophagitis Influenza 1106-2253 Immunization Today Z23 - Encounter for immunization Medications: New diclofenac sodium 1% (Arthritis Pain (diclofenac)) apply to single elbow, wrist or hand; for hand includes palm/fingers/back of hand 2 grams topical QID 100 grams 1RF 30 days Coding Level of Care Code Est Pt Level 4 (24212) Diagnoses Primary hypertension I10 Hypertension type: primary hypertension HLD (hyperlipidemia) E78.5 Moderate persistent asthma, uncomplicated J45.40 GERD (gastroesophageal reflux disease) K21.9 Additional Codes MARÍA-7 Assessment Billing - MARÍA-7 Assessment Tool: MARÍA-7 Assessment [id number] ([id number]) Time Spent (min) 24
[2023-04-07 14:05] VITALS: BP 118/80; BMI 29.6
== END 2023-04-07 14:33 | disposition home or self-care (01) ==
PROVIDERS: PCP Internal Medicine; Visit Provider Internal Medicine
DX: I10 Essential (primary) hypertension (principal); E78.5 Hyperlipidemia, unspecified; J45.40 Moderate persistent asthma, uncomplicated; K21.9 Gastro-esophageal reflux disease without esophagitis
CPT/HCPCS: 99214

== ENCOUNTER 2023-04-14 10:19 | Outpatient (AMB) | payer OTHER, SELFPAY ==
[2023-04-14 10:21] VITALS: BP 122/72; PULSE 72; O2SAT 98; BMI 29.6
--- NOTE | 2023-04-14 10:21 | MHC.OFFVIS ---
Intake Vital Signs 04/14/23 10:21 Height 5 ft 2 in Weight 162 lb 0.636 oz BMI 29.6 BP 122/72 Blood Pressure Location Rt brachial Position Sitting Pulse 72 Pulse Source Doppler Pulse Oximetry (%) 98 Oxygen Delivery Method Room Air Intake Visit Reasons: CPAP Pressure Issue Health Service Worker Required: Yes Health Service Worker Name: Katy Sweeney Allergies peanut [PEANUT] Allergy (Severe, Verified 04/14/23 10:26) ANAPHYLAXIS penicillin G [Penicillin G] Allergy (Intermediate, Verified 04/14/23 10:26) RASH FRUIT Allergy (Severe, Uncoded 04/07/23 14:24) THROAT CLOSES HPI CPAP Pressure Issue HPI Details 68-year-old lady, nonsmoker, followed for underlying severe persistent allergic asthma and KAMARI. Patient has been using Xolair, Advair and albuterol MDI with good control of her asthma symptoms. She had difficulties adjusting to using her CPAP machine and her equipment was taken away secondary to insufficient compliance. At this time she wants to retry using CPAP. She denies recent exacerbation of her asthma. [facility] Medical History Skin cancer COVID-19 vaccine series completed Melena Moderate persistent asthma, uncomplicated Hypercalcemia Lumbago with sciatica, left side H/O nasal polyp GERD (gastroesophageal reflux disease) HLD (hyperlipidemia) HTN (hypertension) Surgical History Status post surgical removal of malignant neoplasm of skin H/O colonoscopy Hx of nasal polypectomy Hx of arthroscopy of right knee History of tonsillectomy Family History Daughter Mental health disorder Daughter Mental health disorder Father CAD (coronary artery disease) Diabetes mellitus Mother Alzheimer disease Essential hypertension Social History Household Members: Spouse Housing: House Alcohol intake: never Patient Tobacco Use Status: Never used Tobacco e-Cigarette/Vaping Use: Never Used Second Hand Smoke Exposure: No service: No Current occupational status: unemployed Sexual orientation: Straight/Heterosexual Gender identity: Female Cognitive needs: No Hearing needs: No Vision needs: Yes Review of Systems Const Denies daytime sleepiness, Denies excessive sweating, Denies fatigue, Denies fever(s), Denies lethargy, Denies malaise, Denies night sweats, Denies snoring and Denies weight loss Eyes Denies blurry vision and Denies itchy eyes ENT Denies nasal congestion, Denies post nasal drip, Denies sinus pain, Denies sinus pressure and Denies other ( Thrush) Card Denies chest pain, Denies pedal edema, Denies dyspnea, Denies orthopnea and Denies paroxysmal nocturnal dyspnea Resp Denies cough, Denies hemoptysis, Denies excessive phlegm production, Denies dyspnea, Denies snoring and Denies wheezing GI Denies abdominal pain and Denies heartburn Musc Denies myalgias, Denies arthralgias and Denies joint swelling Skin/Breast Denies rash Neuro Denies memory loss and Denies seizure-like activity Psych Denies abnormal sleep pattern, Denies anxiety and Denies memory loss Endo Denies excessive sweating, Denies fatigue and Denies heat intolerance Tha/Lymph Denies easy bruising Aller/Immun Denies itchy eyes, Denies seasonal rhinorrhea and Denies wheezing Physical Exam Vital Signs: Last Vital Signs Pulse 72 04/14/23 10:21 BP 122/72 04/14/23 10:21 Pulse Ox 98 04/14/23 10:21 Oxygen Delivery Method Room Air 04/14/23 10:21 BMI result Body Mass Index 29.6 Const General: no acute distress and alert Nutritional Appearance: not obese Orientation/consciousness: Other orientation findings ( oriented) HEENT Head: Yes atraumatic Eyes General: appearance normal, both eyes and all related structures Sclerae: sclerae normal EOM: EOMs intact bilaterally Neck Neck: Yes supple Lymphatic: no lymphadenopathy noted Resp Effort & Inspection: normal respiratory effort and no use of accessory muscles Auscultation: clear to auscultation bilaterally Cardio Rate: regular rate Rhythm: regular rhythm Heart sounds: no gallops, no murmurs and no rubs Skin General skin exam: other ( warm) Extrem General: No clubbing, No cyanosis and No edema Assessment & Plan Assessment & Plan (1) KAMARI (obstructive sleep apnea): Code(s): G47.33 - Obstructive sleep apnea (adult) (pediatric) Plan: Patient wants to retry using the CPAP machine. APAP order placed. (2) Environmental allergies: Code(s): Z91.09 - Other allergy status, other than to drugs and biological substances Plan: Well controlled on Xolair. Continue current regimen. (3) Asthma: Code(s): J45.909 - Unspecified asthma, uncomplicated Plan: Well controlled on Xolair, Advair, and albuterol MDI. Continue current regimen. Coding Level of Care Code Est Pt Level 4 (16573) Diagnoses KAMARI (obstructive sleep apnea) G47.33 Environmental allergies Z91.09 Asthma J45.909
== END 2023-04-14 10:33 | disposition home or self-care (01) ==
PROVIDERS: PCP Internal Medicine; Visit Provider Internal Medicine Pulmonary Disease
DX: G47.33 Obstructive sleep apnea (adult) (pediatric) (principal); Z91.09 Other allergy status, other than to drugs and biological substances; J45.909 Unspecified asthma, uncomplicated
CPT/HCPCS: 99214

== ENCOUNTER 2023-04-14 10:37 | Outpatient (REF) | payer OTHER, SELFPAY | END 2023-04-14 10:38 | disposition home or self-care (01) | LOC: HO.MDS 10:37 | PROVIDERS: Visit Provider Internal Medicine Pulmonary Disease | DX: J45.50 Severe persistent asthma, uncomplicated (principal); G47.33 Obstructive sleep apnea (adult) (pediatric); Z91.09 Other allergy status, other than to drugs and biological substances | CPT/HCPCS: 96372; 99212 ==

== ENCOUNTER 2023-05-12 12:22 | Outpatient (REF) | payer OTHER, SELFPAY | END 2023-05-12 12:23 | disposition home or self-care (01) | LOC: HO.MDS 12:22 | PROVIDERS: Visit Provider Internal Medicine Pulmonary Disease | DX: J45.50 Severe persistent asthma, uncomplicated (principal) | CPT/HCPCS: 96372 ==

== ENCOUNTER 2023-06-09 11:59 | Outpatient (REF) | payer OTHER, SELFPAY ==
[2023-06-09 12:10] VITALS: BP 111/74; PULSE 68; RESP 18; TEMP 36.4; O2SAT 96
[2023-06-09] MEDS: Omalizumab 150 MG/ML SYRINGE SUBCUT (12:17)
== END 2023-06-09 12:00 | disposition home or self-care (01) ==
LOC: HO.MDS 11:59
PROVIDERS: Visit Provider Internal Medicine Pulmonary Disease
DX: J45.50 Severe persistent asthma, uncomplicated (principal)
CPT/HCPCS: 96372

== ENCOUNTER 2023-07-29 14:14 | Outpatient (AMB) | payer OTHER, SELFPAY ==
[2023-07-29 14:18] VITALS: BP 112/78; PULSE 59; O2SAT 96; BMI 28.7
--- NOTE | 2023-07-29 14:18 | MHC.OFFVIS ---
Vital Signs 07/29/23 14:18 Height 5 ft 2 in Weight 157 lb BMI 28.7 BP 112/78 Blood Pressure Location Rt brachial Position Sitting Pulse 59 Pulse Source Doppler Pulse Oximetry (%) 96 Oxygen Delivery Method Room Air Intake Visit Reasons: asthma Loan Interviewer Mortgage Required: Yes Loan Interviewer Mortgage Name: Katy Shalom Sweeney Allergies peanut [PEANUT] Allergy (Severe, Verified 07/29/23 14:23) ANAPHYLAXIS penicillin G [Penicillin G] Allergy (Intermediate, Verified 07/29/23 14:23) RASH FRUIT Allergy (Severe, Uncoded 04/07/23 14:24) THROAT CLOSES HPI HPI asthma: Details: 68-year-old lady, nonsmoker, followed for underlying severe persistent allergic asthma and KAMARI. Patient has been using Xolair, Advair and albuterol MDI with good control of her asthma symptoms. She had difficulties adjusting to using her CPAP machine and her equipment was taken away secondary to insufficient compliance. Patient wanted to retry using CPAP machine and it was reordered, however patient has not received her machine again. She denies recent exacerbations of her underlying asthma. [facility] Medical History Skin cancer COVID-19 vaccine series completed Melena Moderate persistent asthma, uncomplicated Hypercalcemia Lumbago with sciatica, left side H/O nasal polyp GERD (gastroesophageal reflux disease) HLD (hyperlipidemia) HTN (hypertension) Surgical History Status post surgical removal of malignant neoplasm of skin H/O colonoscopy Hx of nasal polypectomy Hx of arthroscopy of right knee History of tonsillectomy Family History Daughter Mental health disorder Daughter Mental health disorder Father CAD (coronary artery disease) Diabetes mellitus Mother Alzheimer disease Essential hypertension Social History Household Members: Spouse Housing: House Alcohol intake: never Patient Tobacco Use Status: Never used Tobacco e-Cigarette/Vaping Use: Never Used Second Hand Smoke Exposure: No service: No Current occupational status: unemployed Sexual orientation: Straight/Heterosexual Gender identity: Female Cognitive needs: No Hearing needs: No Vision needs: Yes Review of Systems Const Denies daytime sleepiness, Denies excessive sweating, Denies fatigue, Denies fever(s), Denies lethargy, Denies malaise, Denies night sweats, Denies snoring and Denies weight loss Eyes Denies blurry vision and Denies itchy eyes ENT Denies nasal congestion, Denies post nasal drip, Denies sinus pain, Denies sinus pressure and Denies other ( Thrush) Card Denies chest pain, Denies pedal edema, Denies dyspnea, Denies orthopnea and Denies paroxysmal nocturnal dyspnea Resp Denies cough, Denies hemoptysis, Denies excessive phlegm production, Denies dyspnea, Denies snoring and Denies wheezing GI Denies abdominal pain and Denies heartburn Musc Denies myalgias, Denies arthralgias and Denies joint swelling Skin/Breast Denies rash Neuro Denies memory loss and Denies seizure-like activity Psych Denies abnormal sleep pattern, Denies anxiety and Denies memory loss Endo Denies excessive sweating, Denies fatigue and Denies heat intolerance Tha/Lymph Denies easy bruising Aller/Immun Denies itchy eyes, Denies seasonal rhinorrhea and Denies wheezing Physical Exam Vital Signs: Last Vital Signs Pulse 59 07/29/23 14:18 BP 112/78 07/29/23 14:18 Pulse Ox 96 07/29/23 14:18 Oxygen Delivery Method Room Air 07/29/23 14:18 BMI result Body Mass Index 28.7 Const General: no acute distress and alert Nutritional Appearance: not obese Orientation/consciousness: Other orientation findings ( oriented) HEENT Head: Yes atraumatic Eyes General: appearance normal, both eyes and all related structures Sclerae: sclerae normal EOM: EOMs intact bilaterally Neck Neck: Yes supple Lymphatic: no lymphadenopathy noted Resp Effort & Inspection: normal respiratory effort and no use of accessory muscles Auscultation: clear to auscultation bilaterally Cardio Rate: regular rate Rhythm: regular rhythm Heart sounds: no gallops, no murmurs and no rubs Skin General skin exam: other ( warm) Extrem General: No clubbing, No cyanosis and No edema Assessment & Plan Assessment & Plan (1) Asthma: Code(s): J45.909 - Unspecified asthma, uncomplicated Category: Medical Plan: Well controlled on current regimen of Xolair, Advair, and albuterol MDI/nebs. Continue current regimen. (2) Environmental allergies: Code(s): Z91.09 - Other allergy status, other than to drugs and biological substances Category: Medical Plan: Well controlled on Xolair and Flonase. Continue current regimen. (3) KAMARI (obstructive sleep apnea): Code(s): G47.33 - Obstructive sleep apnea (adult) (pediatric) Category: Medical Plan: Machine previously taken away for poor compliance secondary to patient's initial difficulty adjusting to CPAP use. Patient wanted to retry using CPAP and it was reordered, however patient has not received the machine yet. Coding Level of Care Code Est Pt Level 4 (09753) Diagnoses Asthma J45.909 Environmental allergies Z91.09 KAMARI (obstructive sleep apnea) G47.33
== END 2023-07-29 14:41 | disposition home or self-care (01) ==
PROVIDERS: PCP Internal Medicine; Visit Provider Internal Medicine Pulmonary Disease
DX: J45.909 Unspecified asthma, uncomplicated (principal); Z91.09 Other allergy status, other than to drugs and biological substances; G47.33 Obstructive sleep apnea (adult) (pediatric)
CPT/HCPCS: 99214

== ENCOUNTER → 2023-07-29 14:14 | Outpatient (BNVA) | payer OTHER, SELFPAY | PROVIDERS: PCP Internal Medicine; Visit Provider Internal Medicine Pulmonary Disease | DX: J45.909 Unspecified asthma, uncomplicated (principal); G47.33 Obstructive sleep apnea (adult) (pediatric); Z91.09 Other allergy status, other than to drugs and biological substances; Z79.899 Other long term (current) drug therapy | CPT/HCPCS: 99212 ==

== ENCOUNTER 2023-10-10 09:16 | Outpatient (REF) | payer OTHER, SELFPAY ==
[2023-10-10 11:09] LABS: Alanine Aminotransferase 26 U/L (0-31); Albumin Level 4.1 g/dL (3.5-5.0); Alkaline Phosphatase 70 U/L (39-117); Anion Gap 14 (12-20); Aspartate Amino Transferase 22 U/L (5-31); Bilirubin Total 0.5 mg/dL (0.0-1.0); Blood Urea Nitrogen 21 mg/dL (9-16); Calcium 9.9 mg/dL (8.4-10.2); Carbon Dioxide 27 mmol/L (22-29); Chloride 104 mmol/L (96-108); Cholesterol 153 mg/dL (<200); Estimated Glomerular Filt Rate > 60; Glucose Fasting 104 mg/dL (60-99); HDL Cholesterol 52 mg/dL (>40); LDL Cholesterol Calculated 83 mg/dL (<100); Potassium 3.4 mmol/L (3.3-5.1); Sodium 142 mmol/L (135-145); Total Protein 7.4 g/dL (6.5-8.0); Triglycerides 92 mg/dL (<150)
== END 2023-10-10 09:17 | disposition home or self-care (01) ==
LOC: HO.LAB 09:16
PROVIDERS: PCP Internal Medicine; Visit Provider Internal Medicine
DX: I10 Essential (primary) hypertension (principal); E78.5 Hyperlipidemia, unspecified; E55.9 Vitamin D deficiency, unspecified; K21.9 Gastro-esophageal reflux disease without esophagitis
CPT/HCPCS: 36415; 80053; 80061; 82306

== ENCOUNTER 2023-10-13 12:58 | Outpatient (AMB) | payer OTHER, SELFPAY ==
[2023-10-13 13:01] VITALS: BP 128/76
--- NOTE | 2023-10-13 13:01 | A.OFFPC_ITS ---
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 Accompanied by: Self / Same As Patient Allergies peanut [PEANUT] Allergy (Severe, Verified 10/13/23 13:13) ANAPHYLAXIS penicillin G [Penicillin G] Allergy (Intermediate, Verified 10/13/23 13:13) RASH FRUIT Allergy (Severe, Uncoded 10/13/23 13:13) THROAT CLOSES Medication List - Last Reconciled 10/13/23 by Angelina Limon MD Advair HFA 115-21 mcg/actuation (fluticasone propion-salmeterol) 2 puffs inhalation Q12H 30 days NS albuterol sulfate 2.5 mg (3 mL) inhalation QID PRN 30 days amlodipine 5 mg PO DAILY 90 days cetirizine (Allergy Relief (cetirizine)) 10 mg PO BID PRN 90 days CPAP (CPAP Machine/Device) AutoCPAP 6-20 cmH2O diclofenac sodium 1% (Arthritis Pain (diclofenac)) 2 grams topical QID 30 days fluticasone propionate 50 mcg/actuation sprays intranasal hydrochlorothiazide 25 mg PO DAILY 90 days losartan 100 mg PO DAILY omalizumab 150 mg subcut Q4W pantoprazole 40 mg PO DAILY 90 days simvastatin 20 mg PO BEDTIME Tobacco use date assessed: 04/07/23 Fall risk assessment: 1 Fall in past year Last assessed Fall Risk: 10/13/23 Dental Screening Dental Screen Date: 04/07/23 HPI HPI Comments History of Present Illness Details This is a 68-year-old female that comes for her physical exam. Colonoscopy done 2018. Mammogram done 2021 and I will order another mammogram. DEXA scan will also be ordered. No chest pain or shortness on breath. Complains of diffuse joint pain and follows with pain management. Also has low back pain that does not radiate to the legs. No fever, bowel or bladder incontinence. [facility] Medical History (Updated 10/13/23 @ 13:22 by Angelina Limon MD) Skin cancer COVID-19 vaccine series completed Melena Moderate persistent asthma, uncomplicated Hypercalcemia Lumbago with sciatica, left side H/O nasal polyp GERD (gastroesophageal reflux disease) HLD (hyperlipidemia) HTN (hypertension) Surgical History Status post surgical removal of malignant neoplasm of skin H/O colonoscopy Hx of nasal polypectomy Hx of arthroscopy of right knee History of tonsillectomy Family History Daughter Mental health disorder Daughter Mental health disorder Father CAD (coronary artery disease) Diabetes mellitus Mother Alzheimer disease Essential hypertension Social History Household Members: Spouse Housing: House Alcohol intake: never Patient Tobacco Use Status: Never used Tobacco e-Cigarette/Vaping Use: Never Used Second Hand Smoke Exposure: No service: No Current occupational status: unemployed Sexual orientation: Straight/Heterosexual Gender identity: Female Cognitive needs: No Hearing needs: No Vision needs: Yes Questionnaire Thrive Questionnaire Date Thrive assessed: 04/07/23 MARÍA-7 AMB Questionnaire MARÍA-7 Date MARÍA - 7 assessed: 04/07/23 Source: Developed by Drs. Juan José Diaz, La Randle, Mio Ling and colleagues, with an educational eloisa from [employer]. Review of Systems Const All systems reviewed & are unremarkable except as noted in HPI and below Card Denies chest pain at rest, Denies chest pain with activity, Denies edema, Denies irregular heart rhythm, Denies claudication, Denies dyspnea, Denies dyspnea on exertion, Denies orthopnea, Denies paroxysmal nocturnal dyspnea and Denies slow heart rate Resp Denies cough, Denies dyspnea and Denies dyspnea on exertion Musc Reports back pain Physical exam (Primary Care) Vital Signs: Last Vital Signs BP 128/76 10/13/23 13:01 BMI result Body Mass Index 30.0 BMI Assessment/Plan discussion: High BMI High, discussed plan: lifestyle, weight reduction, dietary and physical activity Tobacco/Smoking Status: Tobacco use Status Tobacco use date assessed 04/07/23 10/13/23 13:05 Patient Tobacco Use Status Never used Tobacco 10/13/23 13:05 e-Cigarette/Vaping Use Never Used 10/13/23 13:05 Thrive Assessment: Date of Thrive Assessment Date Thrive assessed 04/07/23 10/13/23 13:05 Resp Effort & Inspection: normal respiratory effort Auscultation: clear to auscultation bilaterally Cardio Jugular venous distension: no JVD Rate: regular rate Rhythm: regular rhythm Heart sounds: S1 normal heart sound present and S2 normal heart sound present Extrem General: Yes full ROM Assessment and Plan Assessment & Plan (1) Physical exam: Code(s): Z00.00 - Encounter for general adult medical examination without abnormal findings Plan: Repeat in a year. (2) Lumbar pain: Code(s): M54.50 - Low back pain, unspecified Plan: X-ray ordered. Orders: Orders MM screening mammo BI Today Z12.31 - Encounter for screening mammogram for malignant neoplasm of breast XR DEXA axial skeleton Today N95.9 - Unspecified menopausal and perimenopausal disorder XR lumbar spine 2-3V Today M54.50 - Low back pain, unspecified Medications: New cholecalciferol (vitamin D3) 25 mcg PO DAILY 90 caps 1RF 90 days Coding Level of Care Code Est Pt Level 3 (21531) Est Pt Prev Care >65y(27240) Diagnoses Physical exam Z00.00 Lumbar pain M54.50 Time Spent (min) 33
== END 2023-10-13 13:28 | disposition home or self-care (01) ==
PROVIDERS: PCP Internal Medicine; Visit Provider Internal Medicine
DX: Z00.00 Encounter for general adult medical examination without abnormal findings (principal); M54.50 Low back pain, unspecified
CPT/HCPCS: 99213; 99397

== ENCOUNTER 2023-11-10 09:51 | Outpatient (REF) | payer OTHER, SELFPAY ==
--- NOTE | ~2023-11-10 | MM_ITS ---
EXAMINATION: BONE DENSITOMETRY CLINICAL INDICATION: Menopause. COMPARISON: This is the patient's baseline examination. TECHNIQUE: Using a DCITS DXA System (software version: 13.1) manufactured by [employer], dual-energy x-ray absorptiometry was performed of the lumbar spine and left hip. The images are of good technical quality. Summary results are attached. FINDINGS: LEFT FEMUR, NECK: BMD 0.873 g/cm2, Z-score 0.2, T-score -1.2, osteopenia. LEFT FEMUR, TOTAL: BMD 0.919 g/cm2, Z-score 0.4, T-score -0.7, normal. AP SPINE L1-L4: BMD 1.062 g/cm2, Z-score 0.4, T-score -1.0, normal. IDENTIFIED RISK FACTORS: Early menopause, history of fracture (adult), thiazide, secondary osteoporosis. HISTORY OF FRACTURE: Wrist. MEDICATIONS: Vitamin D. MM/XR DEXA axial skeleton IMPRESSION: 1. DIAGNOSIS: Osteopenia based on the lowest T-score value of -1.2 in the femoral neck applying World Health Organization criteria. 2. 10-YEAR FRACTURE RISK PREDICTION, FRAX: Major osteoporotic fracture (clinical spine, forearm, hip or shoulder) 7.9%. Hip fracture 0.7%. 3. Treatment Recommendations: NOF guidelines recommend consideration for treatment in postmenopausal women and men age 50 and older presenting with the following: -A hip or vertebral (clinical or morphometric) fracture. -T-score less than or equal to -2.5 at the femoral neck or spine after appropriate evaluation to exclude secondary causes. -Low bone mass at the hip or spine and a 10-year fracture probability by FRAX of greater than or equal to 3% for hip fracture or greater than or equal to 20% for major osteoporotic fracture based on the [place] adapted WHO algorithm. 4. Other Recommendations: All treatment decisions require clinical judgment and consideration of individual patient factors, including patient preferences, comorbidities, previous drug use, risk factors not captured in the FRAX model (e.g. frailty, falls, vitamin D deficiency, increased bone turnover, interval significant decline in bone density) and possible under or overestimation of fracture risk by FRAX. Additional medical evaluation for secondary cause of low bone mineral density may be appropriate. FUTURE SCAN RECOMMENDATION: People with diagnosed cases of osteoporosis or at high risk for fracture should have regular bone mineral density tests. For patients eligible for Medicare, routine testing is allowed once every 2 years. The testing frequency can be increased to one year for patients who have rapidly progressing disease, those who are receiving or discontinuing medical therapy to restore bone mass, or have additional risk factors.
--- NOTE | ~2023-11-10 | MM_ITS ---
EXAMINATION: MM SCREENING DIGITAL BREAST TOMOSYNTHESIS, BILATERAL CLINICAL INFORMATION: Screening. Asymptomatic. COMPARISON: Mammography: This study is compared with prior exams dating back to 2016. TECHNIQUE: Digital breast tomosynthesis is performed in both the craniocaudal and mediolateral oblique views along with computer-aided detection (CAD). Synthesized 2D images are generated from the tomosynthesis. FINDINGS: There are scattered areas of fibroglandular density (ACR BI-RADS breast composition Category b). There are no significant masses, abnormal calcifications, or other abnormalities. MM/MM tomosynthesis screening BI IMPRESSION: No mammographic evidence of malignancy. ASSESSMENT: BI-RADS BI-RADS 1 - Negative RECOMMENDATION: Routine annual mammography screening. 1 year F/U This examination should not preclude the clinical evaluation of a suspicious palpable abnormality. This patient's information was entered into a reminder system with a target due date for their next mammogram. Electronically signed by: Anna Max MD 12/10/2023 02:38 PM EDT
== END 2023-11-10 09:52 | disposition home or self-care (01) ==
LOC: HO.MAMMO 09:51
PROVIDERS: PCP Internal Medicine; Visit Provider Internal Medicine
DX: Z12.31 Encounter for screening mammogram for malignant neoplasm of breast (principal); Z13.820 Encounter for screening for osteoporosis; Z78.0 Asymptomatic menopausal state
CPT/HCPCS: 77063; 77067; 77080

== ENCOUNTER → 2023-11-10 10:15 | Outpatient (BNV) | payer OTHER, SELFPAY | PROVIDERS: PCP Internal Medicine; Visit Provider Radiology Diagnostic Radiology | DX: Z12.31 Encounter for screening mammogram for malignant neoplasm of breast (principal) | CPT/HCPCS: 77063; 77067 ==

== ENCOUNTER 2023-11-23 11:27 | Outpatient (AMB) | payer OTHER, SELFPAY ==
[2023-11-23 11:30] VITALS: BP 136/82; PULSE 74; O2SAT 96
--- NOTE | 2023-11-23 11:30 | MHC.OFFVIS ---
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 Patient has been using Xolair, Advair and albuterol MDI with good control of her asthma symptoms. She had difficulties adjusting to using her CPAP machine and her equipment was taken away secondary to insufficient compliance. Patient wanted to retry using CPAP machine and it was reordered, however she requires a new a sleep study. She denies any recent exacerbation of her underlying asthma. [facility] Medical History Skin cancer COVID-19 vaccine series completed Melena Moderate persistent asthma, uncomplicated Hypercalcemia Lumbago with sciatica, left side H/O nasal polyp GERD (gastroesophageal reflux disease) HLD (hyperlipidemia) HTN (hypertension) Surgical History Status post surgical removal of malignant neoplasm of skin H/O colonoscopy Hx of nasal polypectomy Hx of arthroscopy of right knee History of tonsillectomy Family History Daughter Mental health disorder Daughter Mental health disorder Father CAD (coronary artery disease) Diabetes mellitus Mother Alzheimer disease Essential hypertension Social History Household Members: Spouse Housing: House Alcohol intake: never Patient Tobacco Use Status: Never used Tobacco e-Cigarette/Vaping Use: Never Used Second Hand Smoke Exposure: No service: No Current occupational status: unemployed Sexual orientation: Straight/Heterosexual Gender identity: Female Cognitive needs: No Hearing needs: No Vision needs: Yes Review of Systems Const Denies daytime sleepiness, Denies excessive sweating, Denies fatigue, Denies fever(s), Denies lethargy, Denies malaise, Denies night sweats, Denies snoring and Denies weight loss Eyes Denies blurry vision and Denies itchy eyes ENT Denies nasal congestion, Denies post nasal drip, Denies sinus pain, Denies sinus pressure and Denies other ( Thrush) Card Denies chest pain, Denies pedal edema, Denies dyspnea, Denies orthopnea and Denies paroxysmal nocturnal dyspnea Resp Denies cough, Denies hemoptysis, Denies excessive phlegm production, Denies dyspnea, Denies snoring and Denies wheezing GI Denies abdominal pain and Denies heartburn Musc Denies myalgias, Denies arthralgias and Denies joint swelling Skin/Breast Denies rash Neuro Denies memory loss and Denies seizure-like activity Psych Denies abnormal sleep pattern, Denies anxiety and Denies memory loss Endo Denies excessive sweating, Denies fatigue and Denies heat intolerance Tha/Lymph Denies easy bruising Aller/Immun Denies itchy eyes, Denies seasonal rhinorrhea and Denies wheezing Physical Exam Vital Signs: Last Vital Signs Pulse 74 11/23/23 11:30 BP 136/82 11/23/23 11:30 Pulse Ox 96 11/23/23 11:30 Oxygen Delivery Method Room Air 11/23/23 11:30 BMI result Body Mass Index 30.0 Const General: no acute distress and alert Nutritional Appearance: not obese Orientation/consciousness: Other orientation findings ( oriented) HEENT Head: Yes atraumatic Eyes General: appearance normal, both eyes and all related structures Sclerae: sclerae normal EOM: EOMs intact bilaterally Neck Neck: Yes supple Lymphatic: no lymphadenopathy noted Resp Effort & Inspection: normal respiratory effort and no use of accessory muscles Auscultation: clear to auscultation bilaterally Cardio Rate: regular rate Rhythm: regular rhythm Heart sounds: no gallops, no murmurs and no rubs Skin General skin exam: other ( warm) Extrem General: No clubbing, No cyanosis and No edema Assessment & Plan Assessment & Plan (1) KAMARI (obstructive sleep apnea): Code(s): G47.33 - Obstructive sleep apnea (adult) (pediatric) Category: Medical Plan: Patient requires new sleep study for re-qualification, however at this time she wants to postpone it secondary to family issues. (2) Asthma: Code(s): J45.909 - Unspecified asthma, uncomplicated Category: Medical Plan: Controlled on Xolair, Advair, and albuterol MDI/nebs. Continue current regimen. (3) Environmental allergies: Code(s): Z91.09 - Other allergy status, other than to drugs and biological substances Category: Medical Plan: Well controlled on Xolair in [place]. Continue current regimen. Coding Level of Care Code Est Pt Level 4 (44459) Diagnoses KAMARI (obstructive sleep apnea) G47.33 Asthma J45.909 Environmental allergies Z91.09
== END 2023-11-23 11:46 | disposition home or self-care (01) ==
PROVIDERS: PCP Internal Medicine; Visit Provider Internal Medicine Pulmonary Disease
DX: G47.33 Obstructive sleep apnea (adult) (pediatric) (principal); J45.909 Unspecified asthma, uncomplicated; Z91.09 Other allergy status, other than to drugs and biological substances
CPT/HCPCS: 99214

== ENCOUNTER → 2023-11-23 11:27 | Outpatient (BNVA) | payer OTHER, SELFPAY | PROVIDERS: PCP Internal Medicine; Visit Provider Internal Medicine Pulmonary Disease | DX: G47.33 Obstructive sleep apnea (adult) (pediatric) (principal); J45.50 Severe persistent asthma, uncomplicated; Z99.89 Dependence on other enabling machines and devices; Z91.09 Other allergy status, other than to drugs and biological substances | CPT/HCPCS: 99212 ==

== ENCOUNTER 2024-02-29 14:08 | Outpatient (AMB) | payer OTHER, SELFPAY ==
--- NOTE | 2024-02-29 14:13 | MHC.PC.OV ---
Vital Signs 02/29/24 14:17 Height 5 ft 2 in Weight 161 lb BMI 29.4 BP 126/80 Blood Pressure Location Lt brachial Position Sitting Intake Visit Reasons: bp Intake Note: Patient here for a follow up BP Outpatient Physical Therapist Assistant Required: No Accompanied by: Self / Same As Patient Allergies peanut [PEANUT] Allergy (Severe, Verified 02/29/24 14:42) ANAPHYLAXIS penicillin G [Penicillin G] Allergy (Intermediate, Verified 02/29/24 14:42) RASH FRUIT Allergy (Severe, Uncoded 02/29/24 14:42) THROAT CLOSES Medication List - Last Reconciled 02/29/24 by Angelina Limon MD Advair HFA 115-21 mcg/actuation (fluticasone propion-salmeterol) 2 puffs inhalation Q12H 30 days NS albuterol sulfate 2.5 mg (3 mL) inhalation QID PRN 30 days amlodipine 5 mg PO DAILY 90 days calcium carbonate-vitamin D3 500 mg-10 mcg (400 unit) (Oyster Shell Calcium-Vitamin D3) 1 tab PO BID 90 days cetirizine (Allergy Relief (cetirizine)) 10 mg PO BID PRN 90 days cholecalciferol (vitamin D3) 25 mcg PO DAILY 90 days CPAP (CPAP Machine/Device) AutoCPAP 6-20 cmH2O diclofenac sodium 1% (Arthritis Pain (diclofenac)) 2 grams topical QID 30 days fluticasone propionate 50 mcg/actuation sprays intranasal hydrochlorothiazide 25 mg PO DAILY 90 days losartan 100 mg PO DAILY omalizumab 150 mg subcut Q4W pantoprazole 40 mg PO DAILY 90 days simvastatin 20 mg PO BEDTIME Tobacco use date assessed: 04/07/23 Fall risk assessment: No Falls in past year Last assessed Fall Risk: 02/29/24 Dental Screening Dental Screen Date: 02/29/24 Did you have a dental visit in the last 12 months?: Yes Did you have a dental problem in the last 6 months where you did not have access to dental care?: No Was dental information given to patient?: Patient has dentist HPI HPI Comments History of Present Illness Details The patient is a 69-year-old female presenting with follow-up for multiple chronic conditions. Her history includes a diagnosis of osteopenia identified in October of this year, managed with calcium and vitamin D supplements. No further densitometry is indicated until 2025. She also has a history of essential hypertension currently controlled with amlodipine 5 mg daily, losartan 100 mg, and hydrochlorothiazide 25 mg. Her blood pressure at the time of this examination is noted at 126/80 mmHg. The patient has hyperlipidemia managed with simvastatin 20 mg daily. Additionally, a history of gastroesophageal reflux disease is being treated with pantoprazole. The patient reports worsening osteoarthritis symptoms in her wrists and knees, characterized by significant discomfort. She recalls an incident where she experienced a fall, leading to shoulder pain, which was further evaluated and identified to have a possible small fracture. Her sleep apnea was previously managed with a CPAP machine, which was discontinued. The patient awaits re-evaluation to reinstate therapy pending further testing. She receives omalizumab injections monthly to manage severe allergies, specifically allergic rhinitis, to which multiple allergens including penicillin, peanuts, and fruits have been attributed. [facility] Medical History (Updated 02/07/24 @ 13:06 by Angelina Limon MD) Skin cancer COVID-19 vaccine series completed Melena Moderate persistent asthma, uncomplicated Hypercalcemia Lumbago with sciatica, left side H/O nasal polyp GERD (gastroesophageal reflux disease) HLD (hyperlipidemia) HTN (hypertension) Surgical History Status post surgical removal of malignant neoplasm of skin H/O colonoscopy Hx of nasal polypectomy Hx of arthroscopy of right knee History of tonsillectomy Family History Daughter Mental health disorder Daughter Mental health disorder Father CAD (coronary artery disease) Diabetes mellitus Mother Alzheimer disease Essential hypertension Social History Household Members: Spouse Housing: House Alcohol intake: never Patient Tobacco Use Status: Never used Tobacco e-Cigarette/Vaping Use: Never Used Second Hand Smoke Exposure: No service: No Current occupational status: unemployed Sexual orientation: Straight/Heterosexual Gender identity: Female Cognitive needs: No Hearing needs: No Vision needs: Yes Questionnaire Thrive Questionnaire Date Thrive assessed: 04/07/23 MARÍA-7 AMB Questionnaire MARÍA-7 Date MARÍA - 7 assessed: 04/07/23 Source: Developed by Drs. Juan José Diaz, La Randle, Mio Ling and colleagues, with an educational eloisa from [employer]. Review of Systems Const All systems reviewed & are unremarkable except as noted in HPI and below Card Denies chest pain at rest, Denies chest pain with activity, Denies edema, Denies irregular heart rhythm, Denies claudication, Denies dyspnea, Denies dyspnea on exertion, Denies orthopnea, Denies paroxysmal nocturnal dyspnea and Denies slow heart rate Resp Denies cough, Denies dyspnea and Denies dyspnea on exertion GI Denies abdominal pain, Denies change in bowel habits, Denies excessive flatus, Denies nausea and Denies vomiting Denies urinary incontinence, Denies urinary hesitancy and Denies urinary urgency Musc Denies atrophy, Denies deformity and Denies limited range of motion Skin/Breast Denies bleeding lesions, Denies changing lesions and Denies rash Physical exam (Primary Care) Vital Signs: Last Vital Signs BP 126/80 02/29/24 14:17 BMI result Body Mass Index 29.4 Tobacco/Smoking Status: Tobacco use Status Tobacco use date assessed 04/07/23 02/29/24 14:19 Patient Tobacco Use Status Never used Tobacco 02/29/24 14:19 e-Cigarette/Vaping Use Never Used 02/29/24 14:19 Thrive Assessment: Date of Thrive Assessment Date Thrive assessed 04/07/23 02/29/24 14:19 Resp Effort & Inspection: normal respiratory effort Auscultation: clear to auscultation bilaterally Cardio Jugular venous distension: no JVD Rate: regular rate Rhythm: regular rhythm Heart sounds: S1 normal heart sound present and S2 normal heart sound present Extrem General: Yes full ROM Office Procedures Flu Questionnaire Does the patient have a severe egg allergy?: No Does the patient have severe life threatening allergies?: No Does the patient have a fever or illness today?: No Has the patient ever had Guillain-[place] Syndrome?: No Has the patient ever had any past reaction to a flu shot?: No Immunizations Fluarix Triv 5232-3043 (PF) 45 mcg (15 mcg x 3)/0.5 mL IM syringe Performing Provider: Angelina Limon MD [facility] Administered by: ISMAEL Yeh on 02/29/24 14:56 Dose Route Admin Location Dispensed Lot Number Expiration Date [employer] 0.5 mL IM Right Deltoid 0.5 mL [id number] 09/24/24 80280-576-82 Only [place] VIS Given Date VIS Provided VIS Publication Date 02/29/24 Single Vaccine 20 Eligibility Eligibility Date Funding Source Not VFC Eligible 02/29/24 Private Coding Level of Care Code Est Pt Level 4 (52138) Complex EM visit Add On G2211 Diagnoses Right hand pain M79.641 Lumbar pain M54.50 KAMARI (obstructive sleep apnea) G47.33 Moderate persistent asthma, uncomplicated J45.40 Primary hypertension I10 Hypertension type: primary hypertension HLD (hyperlipidemia) E78.5 Time Spent (min) 23 Assessment & Plan Assessment & Plan (1) Right hand pain: Code(s): M79.641 - Pain in right hand Category: Medical (2) Lumbar pain: Code(s): M54.50 - Low back pain, unspecified Category: Medical (3) KAMARI (obstructive sleep apnea): Code(s): G47.33 - Obstructive sleep apnea (adult) (pediatric) Category: Medical (4) Moderate persistent asthma, uncomplicated: Code(s): J45.40 - Moderate persistent asthma, uncomplicated Category: Medical (5) HTN (hypertension): Code(s): I10 - Essential (primary) hypertension Category: Medical Qualifiers: Hypertension type: primary hypertension Qualified Code(s): I10 - Essential (primary) hypertension (6) HLD (hyperlipidemia): Code(s): E78.5 - Hyperlipidemia, unspecified Category: Medical Plan - Essential Hypertension: Continue current meds. - Allergic Rhinitis: Continue monthly omalizumab injections. - Hyperlipidemia: Maintain current simvastatin regimen. - Osteoarthritis: Initiate topical diclofenac gel for knee and joint pain relief. - Gastroesophageal Reflux Disease: Continue pantoprazole. - Allergies: Avoid known allergens. - Sleep Apnea: Re-evaluation for CPAP to be scheduled pending testing. - Right Shoulder Fracture: She follows with orthopedics to further evaluate shoulder condition. - Continue current medications and follow activity modifications for joint health. Patient was informed and verbally consented to the use of an ambient scribe for clinic note documentation during this visit. During the consultation, I discussed the current management plan for the patient's chronic conditions. For osteopenia, I emphasized the importance of continued calcium and vitamin D supplementation, with a follow-up bone density test scheduled in three years. The patient?s blood pressure is well managed with the current antihypertensive regimen, and we will continue it as is. For allergy management, we are maintaining the monthly omalizumab injections given their past efficacy. The patient has consented to these plans. We also discussed utilizing topical diclofenac for arthritic pain relief in the knees and other painful joints. I informed the patient of the necessity for a re-evaluation regarding her sleep apnea, which was previously managed successfully with a CPAP device, and consent was provided. Lastly, I provided anticipatory guidance on avoiding allergens and the need for physical activity modifications to support joint health. Orders: Orders Influenza [id number] Immunization Today Z23 - Encounter for immunization OT Evaluation and Treatment Today M79.641 - Pain in right hand Lipid Panel 6 Months E78.5 - Hyperlipidemia, unspecified Comprehensive [place]. Panel Fast 6 Months M79.641 - Pain in right hand Vitamin D 25-OH Total 6 Months E55.9 - Vitamin D deficiency, unspecified Medications: Refilled diclofenac sodium 1% (Arthritis Pain (diclofenac)) apply to single elbow, wrist or hand; for hand includes palm/fingers/back of hand 2 grams topical QID 100 grams 1RF 30 days Patient Instructions: - Continue all prescribed medications as directed. - Apply diclofenac gel to knees and painful joints as needed. - Avoid allergens including penicillin, peanuts, and fruits. - Schedule and attend sleep apnea re-evaluation testing. - Follow a diet rich in calcium and vitamin D. - Schedule follow-up in six months for routine lab work. - Return for any new or worsening symptoms. - Follow up with orthopedics as referred for the right shoulder evaluation.
[2024-02-29 14:17] VITALS: BP 126/80; BMI 29.4
== END 2024-02-29 14:59 | disposition home or self-care (01) ==
PROVIDERS: PCP Internal Medicine; Visit Provider Internal Medicine
DX: M79.641 Pain in right hand (principal); M54.50 Low back pain, unspecified; G47.33 Obstructive sleep apnea (adult) (pediatric); J45.40 Moderate persistent asthma, uncomplicated; I10 Essential (primary) hypertension; E78.5 Hyperlipidemia, unspecified; Z23 Encounter for immunization

== ENCOUNTER → 2024-02-29 14:08 | Outpatient (BNVA) | payer OTHER, SELFPAY | PROVIDERS: PCP Internal Medicine; Visit Provider Internal Medicine | DX: Z23 Encounter for immunization (principal); M79.641 Pain in right hand; M54.50 Low back pain, unspecified; G47.33 Obstructive sleep apnea (adult) (pediatric); J45.40 Moderate persistent asthma, uncomplicated; I10 Essential (primary) hypertension; E78.5 Hyperlipidemia, unspecified | CPT/HCPCS: 90471; 90656; 99212 ==

== ENCOUNTER 2024-09-07 09:44 | Outpatient (REF) | payer OTHER, SELFPAY ==
--- OUTSIDE RECORDS SUMMARY | 2024-09-07 10:14 | XMS_ITS | Data Portability ---
Author Organization [facility] [address] [place] [address] Assessment No assessment recorded. Plan of Treatment Reminders Order Date Submit Date Provider Last Modified By Organization Details Last Modified Time Details Appointments None recorded. Lab None recorded. Referral None recorded. Procedures None recorded. Surgeries None recorded. Imaging None recorded. Medication Orders prednisone 10 mg tablet 2022 023 [email or web address] [facility], [address] [place], [address], 16:44:38 Zithromax Z-Keith 250 mg tablet 2022 023 [email or web address] [facility], [address] [place], [address], 16:44:38 Patient TargetsNo targets recorded. Patient Instructions Encounter Date Encounter Id Patient Instructions Last Modified By Organization Details Last Modified Time 12/27/2022 [id number] asthma in adults : care instructions Not available 12/27/2022 16:44:38 cough: care instructions Not available 12/27/2022 16:44:38 Reason for Referral None Reported. Problems Name Problem SNOMED Code Status Onset Date Resolution Date Notes Provider Name and Address Organization Details Recorded Time Asthma 083716235 Active ZELDA LAFLEURO vitaliy, PA - [facility] 16:18:30 Hyperlipidemia 15701266 Active ZELDA MINEO null, PA - [facility] 16:18:50 Hypertensive disorder 75493168 Active ZELDA MINEO null, PA - [facility] 3 16:19:03 Exacerbation of intermittent asthma 167862723 Active 2022 Rudy Ac vitaliy PA - [facility] 3 16:42:44 Problem Notes None recorded. Procedures Surgical History Date Name Laterality Status Provider Name and Address Organization Details Recorded Time Knee arthroscopy/arevalo rgery completed ZELDA LAFLEURO PA - [facility] 12/27/2022 16:19:53 simple excision of nasal polyps completed ZELDA MINEO PA - [facility] 12/27/2022 16:20:06 Imaging Results None recorded. Procedure Notes None recorded. Medical Equipment None Reported. Allergies Allergen ID Allergen Name Allergen Category Reaction Reaction Severity Criticality Documentation Date Start Date Code Code System Note Provider Name and Address Organization Details Recorded Time 422378 Product containin g penicilli n (product) medicatio n Not available Not available Not available 12/27/2022 [id number] SNOMED ZELDA LAFLEUREnid vitaliy PA - [facility] 16:17:07 Medications Name Sig Start Date Stop Date Status Note LastModified by Organization Details LastModified Time prednisone 10 mg tablet 4 pills po qd x 3 days, 3 pills po qd x 3 days, 2 pills po qd x 2 days, 1 pills po qd x 2 days 2022 active Not Available Not Available Not Avai lable Zithromax Z-Keith 250 mg tablet TAKE 2 TABLETS (500 MG) BY ORAL ROUTE ONCE DAILY FOR 1 DAY THEN 1 TABLET (250 MG) BY ORAL ROUTE ONCE DAILY FOR 4 DAYS 2022 active Not Available Not Available Not Avai lable amlodipine 5 mg tablet active Not Available Not Available Not Available amlodipine 10 mg tablet active Not Available Not Available No t Available pantoprazole 40 mg tablet,delayed release active Not Available Not Available Not Available simvastatin 20 mg tablet active Not Available Not Available No t Available hydrochlorothia zide 25 mg tablet active Not Available Not Available Not Available losartan 100 mg tablet active Not Available Not Available Not Available fluticasone propionate 50 mcg/actuation nasal spray,suspensio n active Not Available Not Available Not Available Ventolin HFA 90 mcg/actuation aerosol inhaler active Not Available Not Availa ble Not Available Advair HFA 115 mcg-21 mcg/actuation aerosol inhaler active Not Available Not Availa ble Not Available Xolair 150 mg/mL subcutaneous syringe active Not Available Not Available Not Available Vitals Date Recorded Body height Body mass index (BMI) Body weight Oxygen saturation Oxygen saturation in Arterial blood by Pulse oximetry Heart rate Respiratory rate Body temperature Systolic blood pressure Diastolic blood pressure Provider Name and Address Organization Details Last Updated DateTime 3 157.48 cm 28.5 kg/m2 22410.4 1 g 96 % 96 % 73 /min 18 /min 98.3 [degF] 131 mm[Hg] 78 mm[Hg] ZELDA RIGGS PA - [facility] 3 16:23:25 Social History None recorded. Functional Status Question Answer Note LastModified by Organizat ion Details LastModified Time Do you use any illicit or recreational drugs? No Information not available 12/27/2022 Do you or have you ever used any other forms of tobacco or nicotine? Yes Information not available 12/27/2022 What is your level of alcohol consumption? None Information not available 12/27/2022 Mental Status None recorded. Family History Nothing Reported. Medical History No medical history recorded. Gynecological History Statement/Question Response Is there any chance of ? No Obstetrics History GPAL:G 0 P 0 0 0 0 Past Encounters Encounter ID Performer Location Encounter Start Date Encounter Closed Date Diagnosis/Indication Diagnosis SNOMED-CT Code Diagnosis ICD10 Code Diagnosis Note [id number] [place] [address] [place] [address] 12/27/2022 15:01:44 12/27/2022 16:47:04 Acute upper respiratory infection 08680099 J06.9 Exacerbati on of intermittent asthma 537074480 J45.21 Based on your Presentati on, Exam, and Lab Testing you are being diagnosed with Upper respirator y track infection with asthma exacerbati on take the steroid as prescribed Follow your establishe d asthma action plan The following are my recommenda tions to help with your symptoms while your body fights this infection: 1. Take Ibuprofen or Tylenol if you do not have any allergies to these medication s. If you take a blood thinner you should not take NSAIDS like Ibuprofen. These medication will help with the inflammati on in your respirator y tract which should help cough.2. Do not take any decongesta nts at this time because this will dry out that tract too much. If you have a lot of nasal congestion you can try nasal decongesta nts, but I would not take them more than 5 days.3. Use a humidifier or add a cup of water by your bed. Sometimes if our sleeping environmen t is too dry this can lead to cough4. Salt Water Gargles5. Saline nasal spray is helpful.6. Would recommend taking a antihistam ine to help with the congestion .7. Clean Surfaces regularly and try to stay isolated from family members. I would be seen again if you develop any of the following. 1. Cough develops last longer than 3 weeks.2. Develop shortness of breath or wheezing.3 . Severe Headache with vision changes4. Stiff Neck5. Fever does not reduce a few points with Ibuprofen or Tylenol. I would go immediatel y to the Emergency Room if you develop:1. Chest Pain2. Severe Shortness of breath3. Coughing up Blood. I would be seen again if you develop any of the following symptoms.1 . Fever > 101.02. Stiff neck - where you can't turn your neck3. Trouble swallowing your saliva - drooling4. Swelling of a lymph node in your throat that is painful to touch5. Difficulty breathing6 . Severe Headache Thank you for using [employer] today, please feel free to contact our office if you have any questions or concerns. Health Concerns Section Related Observation LastModified by Organization Detai ls LastModified Time None Recorded Concern Status LastModified by Organization Details LastModified Time None Recorded Advance Directives Directive None Recorded Payers Insurance Date Sequence Insurance Name Policy Number Policy Tyler Covered Member ID Tyler Member ID Guarantor Name 03/11/2023 2 [place] Robyn Yanza Colon [id number] Robyn Yanza Colon 12/27/2022 1 [place] Robyn Lee Colon [id number] Robyn Lee Colon 12/27/2022 1 [facility] (O) Robyn Yanza Colon [id number] Robyn Yanza Colon Notes Date Note Type Note Provider Name and Address Organization Details Recorded Time 3 text/html CoughReported bypatient.source of patient informationInformation obtained from patient; Patient arrived at Urgent Care ambulatory; via central african interpretor Quality:productive cough; intermittent Severity:worsening; moderate Duration:intermittent; 6 days Context:Patient denies vaping; non-smoker Associated Symptoms:no fever; no chest pain; no heartburn; no nausea; no vomiting;chills;wheezing Patient presents with green/yellow productive cough and chest congestion x 6 days . hx of asthma, treated with advair and albuterol inhaler and neb. thus far no relief from the rescue meds , cough and wheezing with diaphragm pain from coughing so much . Hillary Rai NP [address] [place], [address], PA - [facility] 12/27/2022 16:44:59 OBGyn Episode No OBEpisode recorded.
[2024-09-07 10:47] LABS: Alanine Aminotransferase 30 U/L (0-31); Albumin Level 4.5 g/dL (3.5-5.0); Alkaline Phosphatase 73 U/L (39-117); Anion Gap 12 (12-20); Aspartate Amino Transferase 25 U/L (5-31); Bilirubin Total 0.5 mg/dL (0.0-1.0); Blood Urea Nitrogen 20 mg/dL (9-16); Calcium 9.9 mg/dL (8.4-10.2); Carbon Dioxide 32 mmol/L (22-29); Chloride 102 mmol/L (96-108); Cholesterol 154 mg/dL (<200); Estimated Glomerular Filt Rate > 60; Glucose Fasting 104 mg/dL (60-99); HDL Cholesterol 47 mg/dL (>40); LDL Cholesterol Calculated 92 mg/dL (<100); Potassium 3.7 mmol/L (3.3-5.1); Sodium 142 mmol/L (135-145); Total Protein 7.2 g/dL (6.5-8.0); Triglycerides 78 mg/dL (<150)
[2024-09-07 11:04] LABS: Vitamin D 25-OH Total 54.2 ng/mL (>30)
== END 2024-09-07 09:45 | disposition home or self-care (01) ==
LOC: HO.LAB 09:44
PROVIDERS: PCP Internal Medicine; Visit Provider Internal Medicine
DX: K21.9 Gastro-esophageal reflux disease without esophagitis (principal); E78.5 Hyperlipidemia, unspecified; E55.9 Vitamin D deficiency, unspecified
CPT/HCPCS: 36415; 80053; 80061; 82306

== ENCOUNTER 2024-10-15 10:57 | Outpatient (AMB) | payer OTHER, SELFPAY ==
--- NOTE | 2024-10-15 11:00 | MHC.PC.OV ---
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: No Accompanied by: Self / Same As Patient Allergies peanut (PEANUT) Allergy (Severe, Verified 10/15/24 11:11) ANAPHYLAXIS penicillin G (Penicillin G) Allergy (Intermediate, Verified 10/15/24 11:11) RASH FRUIT Allergy (Severe, Uncoded 10/15/24 11:11) THROAT CLOSES Medication List - Last Reconciled 10/15/24 by Angelina Limon MD Advair HFA 115-21 mcg/actuation (fluticasone propion-salmeterol) 2 puffs inhalation Q12H NS albuterol sulfate 2.5 mg (3 mL) inhalation QID PRN 30 days amlodipine 5 mg PO DAILY 90 days calcium carbonate-vitamin D3 500 mg-10 mcg (400 unit) (Oyster Shell Calcium-Vitamin D3) 1 tab PO BID 90 days cetirizine (Allergy Relief (cetirizine)) 10 mg PO BID PRN 90 days cholecalciferol (vitamin D3) 25 mcg PO DAILY 90 days CPAP (CPAP Machine/Device) AutoCPAP 6-20 cmH2O diclofenac sodium 1% (Arthritis Pain (diclofenac)) 2 grams topical QID 30 days fluticasone propionate 50 mcg/actuation sprays intranasal hydrochlorothiazide 25 mg PO DAILY 90 days losartan 100 mg PO DAILY omalizumab 150 mg subcut Q4W pantoprazole 40 mg PO DAILY 90 days simvastatin 20 mg PO BEDTIME Tobacco use date assessed: 10/15/24 Fall risk assessment: No Falls in past year Last assessed Fall Risk: 10/15/24 Dental Screening Dental Screen Date: 10/15/24 Did you have a dental visit in the last 12 months?: Yes Did you have a dental problem in the last 6 months where you did not have access to dental care?: No Was dental information given to patient?: Patient has dentist HPI HPI Comments History of Present Illness Details The patient is a 69-year-old female presenting for a wellness visit and preventative care. Her last tetanus vaccine was administered in 2011, indicating she is due for another dose. The last Pap smear was conducted in 2021, which was HPV negative, and no further screening is required post-65 years of age. She has right heel pain and I will order an x-ray. The patient has a history of osteopenia, identified during a bone DEXA scan in October 2023, with the next scan scheduled for 2025. She is currently on calcium and vitamin D supplementation as part of her management plan. She follows up with gastroenterology for chronic gastroesophageal reflux disease (GERD). Her last colonoscopy was performed in 2018 in [place], with normal findings, and the next is due in 2028. The patient has a history of hypertension and hyperlipidemia, with recent lab results showing normal cholesterol levels and a fasting blood glucose of 104 mg/dL. She is on medications including amlodipine, losartan, and a cholesterol-lowering agent. She has a history of skin cancer removal and right knee arthroscopy. She is allergic to peanuts and penicillin. [facility] Medical History (Updated 10/15/24 @ 11:22 by Angelina Limon MD) Skin cancer COVID-19 vaccine series completed Melena Moderate persistent asthma, uncomplicated Hypercalcemia Lumbago with sciatica, left side H/O nasal polyp GERD (gastroesophageal reflux disease) HLD (hyperlipidemia) HTN (hypertension) Surgical History Status post surgical removal of malignant neoplasm of skin H/O colonoscopy Hx of nasal polypectomy Hx of arthroscopy of right knee History of tonsillectomy Family History Daughter Mental health disorder Daughter Mental health disorder Father CAD (coronary artery disease) Diabetes mellitus Mother Alzheimer disease Essential hypertension Social History Household Members: Spouse Housing: House Alcohol intake: never Patient Tobacco Use Status: Never used Tobacco e-Cigarette/Vaping Use: Never Used Second Hand Smoke Exposure: No service: No Current occupational status: unemployed Sexual orientation: Straight/Heterosexual Gender identity: Female Cognitive needs: No Hearing needs: No Vision needs: Yes Questionnaire PHQ-9 Over the last 2 weeks, how often have you been bothered by any of the following problems? 1. Little interest or pleasure in doing things: not at all 2. Feeling down, depressed, or hopeless: not at all 3. Trouble falling or staying asleep, or sleeping too much: not at all 4. Feeling tired or having little energy: not at all 5. Poor appetite or overeating: not at all 6. Feeling bad about yourself - or that you are a failure or have let yourself or your family down: not at all 7. Trouble concentrating on things, such as reading the newspaper or watching television: not at all 8. Moving or speaking so slowly that other people could have noticed. Or the opposite - being so fidgety or restless that you have been moving around a lot more than usual: not at all 9. Thoughts that you would be better off or of hurting yourself in some way: not at all Total score: 0 Depression Screening Interpretation: Negative Depression Screening Done: Yes 05032 - PHQ-9 Billing: Yes Source: Developed by Drs. Juan José Diaz, La Randle, Mio Ling and colleagues, with an educational eloisa from [employer]. Thrive Questionnaire Date Thrive assessed: 10/15/24 I am a: Patient What is your living situation today?: I have a steady place to live Within the past 12 months, did the food you bought not last and you didn't have the money to get more?: Never true Within the past 12 months, did you worry whether your food would run out before you got money to buy more?: Never true Do you have trouble paying for medicines?: No Do you have trouble getting transportation to medical appointments?: No Do you have trouble paying your heating and electricity bill?: No Do you have trouble taking care of your child, family member or friend?: No Do you have trouble with day-to-day activities such as bathing, preparing meals, shopping, managing finances, etc.?: No Are you currently unemployed and looking for a job?: No Are you interested in more education?: No Please select the resources that you would like help with: None Currently or been in a relationship where the following occur: No concerns reported THRIVE Score: 0 AUDIT C Alcohol Use Questionnaire (AUDIT-C) 1. How often do you have a drink containing alcohol?: Never 3. How often do you have six or more drinks on one occasion?: Never Total Score: 0 Score Reviewed/Action Taken: No MARÍA-7 AMB Questionnaire MARÍA-7 Date MARÍA - 7 assessed: 10/15/24 Feeling nervous, anxious, or on edge: 0 = Not at all Not being able to stop or control worryin = Not at all Worrying too much about different things: 0 = Not at all Trouble relaxin = Not at all Being so restless that it is hard to sit still: 0 = Not at all Becoming easily annoyed or irritable: 0 = Not at all Feeling afraid as if something awful might happen: 0 = Not at all Total MARÍA-7 score (0-4 normal; 5-9 mild; 10-14 moderate; 15-21 severe): 0 Source: Developed by Drs. Juan José Diaz, La Randle, Mio Ling and colleagues, with an educational eloisa from [employer]. MARÍA-7 Assessment Billing MARÍA-7 Assessment Tool: MARÍA-7 Assessment 39759 Review of Systems Const All systems reviewed & are unremarkable except as noted in HPI and below Card Denies chest pain at rest, Denies chest pain with activity, Denies edema, Denies irregular heart rhythm, Denies claudication, Denies dyspnea, Denies dyspnea on exertion, Denies orthopnea, Denies paroxysmal nocturnal dyspnea and Denies slow heart rate Resp Denies cough, Denies dyspnea and Denies dyspnea on exertion GI Denies abdominal pain, Denies change in bowel habits, Denies excessive flatus, Denies nausea and Denies vomiting Denies urinary incontinence, Denies urinary hesitancy and Denies urinary urgency Musc Denies abnormal gait, Denies atrophy, Denies deformity and Denies limited range of motion Skin/Breast Denies bleeding lesions, Denies changing lesions and Denies rash Neuro Denies abnormal gait and Denies lack of coordination Physical exam (Primary Care) Vital Signs: Last Vital Signs Pulse 94 10/15/24 11:01 BP 120/68 10/15/24 11:01 Pulse Ox 95 10/15/24 11:01 Oxygen Delivery Method Room Air 10/15/24 11:01 BMI result Body Mass Index 29.8 Tobacco/Smoking Status: Tobacco use Status Tobacco use date assessed 10/15/24 10/15/24 11:07 Patient Tobacco Use Status Never used Tobacco 10/15/24 11:07 e-Cigarette/Vaping Use Never Used 10/15/24 11:07 PHQ-9: PHQ-9 Score PHQ-9: Total score 0 10/15/24 11:17 Depression Screening Interpretation: Negative Thrive Assessment: Date of Thrive Assessment Date Thrive assessed 10/15/24 10/15/24 11:07 Currently or been in a relationship where the following occur: No concerns reported HENMT Head: Yes normal to inspection, Yes normocephalic and Yes atraumatic Ears: external ears normal Eyes General: appearance normal, both eyes and all related structures Eyelids: Yes eyelids normal Conjunctivae: conjunctivae normal Neck Neck: Yes normal visual inspection and Yes supple Resp Effort & Inspection: normal respiratory effort Auscultation: clear to auscultation bilaterally Cardio Jugular venous distension: no JVD Rate: regular rate Rhythm: regular rhythm Heart sounds: S1 normal heart sound present and S2 normal heart sound present GI Inspection: Yes normal to inspection Palpation (GI): Soft to palpation and nontender Auscultation: normal bowel sounds Skin General skin exam: no rashes or lesions noted Neuro General: no focal motor deficits Extrem General: Yes full ROM Psych Appearance: grossly normal Immunizations pneumoc 20-cary conj-dip cr(PF) 0.5 mL IM syringe Performing Provider: Angelina Limon MD Performing Location: [facility] Administered by: ISMAEL Reina on 10/15/24 11:30 Dose Route Admin Location Dispensed Lot Number Expiration Date [facility] Sonar Watchstander 0.5 mL IM Left Deltoid 0.5 mL [id number] 09/25/25 [employer] Total Dispensed Waste 0.5 mL 0 % VIS Given Date VIS Provided VIS Publication Date 10/15/24 Single Vaccine 24 Eligibility Eligibility Date Funding Source Not VFC Eligible 10/15/24 Private Boostrix Tdap 2.5 Lf unit-8 mcg-5 Lf/0.5 mL intramuscular syringe Performing Provider: Angelina Limon MD Performing Location: [facility] Administered by: ISMAEL Reina on 10/15/24 11:30 Dose Route Admin Location Dispensed Lot Number Expiration Date [facility] Sonar Watchstander 0.5 mL IM Left Deltoid 0.5 mL [id number] 05/18/26 [id number] ONE Change Total Dispensed Waste 0.5 mL 0 % VIS Given Date VIS Provided VIS Publication Date 10/15/24 Single Vaccine 20 Eligibility Eligibility Date Funding Source Not [facility] Eligible 10/15/24 Private Coding Level of Care Code Est Pt Level 3 (68596) Est Pt Prev Care >65y(99687) Diagnoses Physical exam Z00.00 Right foot pain M79.671 Additional Codes PHQ-9 - 16836 - PHQ-9 Billing: Yes ([id number]) MARÍA-7 Assessment Billing - MARÍA-7 Assessment Tool: MARÍA-7 Assessment 02200 ([id number]) Time Spent (min) 34 Assessment & Plan Assessment & Plan (1) Physical exam: Code(s): Z00.00 - Encounter for general adult medical examination without abnormal findings Category: Medical (2) Right foot pain: Code(s): M79.671 - Pain in right foot Category: Medical Plan The patient will receive the tetanus and pneumonia vaccinations today, as she is due for both. She is advised to continue with her current medication regimen, including calcium and vitamin D supplementation for osteopenia, and antihypertensive and cholesterol-lowering medications. Follow-up appointments are scheduled for a mammogram on November 22, 2024, and a bone DEXA scan in 2025. The patient is encouraged to maintain regular follow-ups with her manager floor for chronic GERD management. Patient was informed and verbally consented to the use of an ambient scribe for clinic note documentation during this visit. I discussed with the patient the importance of receiving her tetanus and pneumonia vaccinations today, as she is due for both. We reviewed her current medication regimen, emphasizing the continuation of calcium and vitamin D supplementation for osteopenia, and her antihypertensive and cholesterol-lowering medications. I advised her to keep her upcoming appointments for a mammogram and bone DEXA scan, and to continue regular follow-ups with her manager floor for GERD management. Orders: Orders Vitamin D 25-OH Total 6 Months E55.9 - Vitamin D deficiency, unspecified Pneumococcal 20 Immunization Today Z23 - Encounter for immunization XR foot RT 2V Today M79.671 - Pain in right foot Lipid Panel 6 Months E78.5 - Hyperlipidemia, unspecified Comprehensive [place]. Panel Fast 6 Months I10 - Essential (primary) hypertension TDaP Immunization Today Z23 - Encounter for immunization
[2024-10-15 11:01] VITALS: BP 120/68; PULSE 94; O2SAT 95; BMI 29.8
--- OUTSIDE RECORDS SUMMARY | 2024-10-15 12:09 | XMS_ITS | Data Portability ---
Author Organization [facility] [address] Address [address] [place] [address] Assessment No assessment recorded. Plan of Treatment Reminders Order Date Submit Date Provider Last Modified By Organization Details Last Modified Time Details Appointments None recorded. Lab None recorded. Referral None recorded. Procedures None recorded. Surgeries None recorded. Imaging None recorded. Medication Orders prednisone 10 mg tablet 2022 023 [email or web address] [address] [place], [address], 16:44:38 Zithromax Z-Keith 250 mg tablet [email or web address] [place] [address] [facility], [address] [place], [address], 16:44:38 Patient TargetsNo targets recorded. Patient Instructions Encounter Date Encounter Id Patient Instructions Last Modified By Organization Details Last Modified Time 12/27/2022 [id number] asthma in adults : care instructions Not available 12/27/2022 16:44:38 cough: care instructions Not available 12/27/2022 16:44:38 Reason for Referral None Reported. Problems Name Problem SNOMED Code Status Onset Date Resolution Date Notes Provider Name and Address Organization Details Recorded Time Asthma 347636391 Active ZELDA burks, [place] - [facility] 16:18:30 Hyperlipidemia 52392541 Active ZELDA MINEO null, [place] - [facility] 16:18:50 Hypertensive disorder 24442137 Active ZELDA LAFLEUREnid burks, [place] - [facility] 3 16:19:03 Exacerbation of intermittent asthma 906594598 Active 2022 Rudy Ac vitaliy [facility] 3 16:42:44 Problem Notes None recorded. Procedures Surgical History Date Name Laterality Status Provider Name and Address Organization Details Recorded Time Knee arthroscopy/arevalo rgery completed ZELDA LAFLEUREnid [place] - [facility] 12/27/2022 16:19:53 simple excision of nasal polyps completed ZELDA LAFLEUREnid [facility] 12/27/2022 16:20:06 Imaging Results None recorded. Procedure Notes None recorded. Medical Equipment None Reported. Allergies Allergen ID Allergen Name Allergen Category Reaction Reaction Severity Criticality Documentation Date Start Date Code Code System Note Provider Name and Address Organization Details Recorded Time 746683 Product containin g penicilli n (product) medicatio n Not available Not available Not available 12/27/2022 38895 8001 SNOMED ZELDA LAFLEUREnid vitaliy [facility] 3 16:17:07 Medications Name Sig Start Date Stop [...] Heart rate Respiratory rate Body temperature Systolic And Diastolic Provider Name and Address Organization Details Last Updated DateTime 3 157.48 cm 28.5 kg/m2 70811.4 1 g 96 % 96 % 73 /min 18 /min 98.3 [degF] 131/78 mm[Hg] ZELDA RIGGS PA - [facility] 16:23:25 Social History None recorded. Functional Status [...] SNOMED-CT Code Diagnosis ICD10 Code Diagnosis Note [id number] [place] [address] [place] [address] 12/27/2022 15:01:44 12/27/2022 16:47:04 Acute upper respiratory infection 70601450 J06.9 Exacerbati on of intermittent asthma 307084283 J45.21 Based on your Presentati on, Exam, [...] . Severe Headache Thank you for using [facility] today, please feel free to contact our [...] 03/11/2023 2 [place] Robyn Yanza Colon [id number] Robyn Yanza Colon 12/27/2022 1 [place] B[place]: [place] Robyn Femi Lee Colon [id number] Robyn Lee Colon 12/27/2022 1 [facility] ([facility]) Robyn Yanza Colon [id number] Robyn Yanza Colon Notes Date Note Type Note Provider Name and Address Organization Details Recorded Time 3 text/html CoughReported bypatient.source of patient informationInformation obtained from patient; Patient arrived at Urgent Care ambulatory; 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
--- OUTSIDE RECORDS SUMMARY | 2024-10-15 12:09 | XMS_ITS | Clinical Summary ---
Author Organization [address] [place] [address] [place] [phone] Phone Care Team Providers Care Facilities Operator Name Role Phone Angelina Limon MD Primary Care Provider [phone] Surgical History Surgery Date Site/Laterality Comments OTHER SURGICAL HISTORY Bilateral PROCEDURE: SD EXCISION NASAL POLYP SIMPLE; COMMENT: 2014 KNEE ARTHROSCOPY W/ DEBRIDEMENT Right PROCEDURE: SD ARTHRS KNEE DEBRIDEMENT/SHAVING ARTCLR CRTLG TONSILLECTOMY N/A PROCEDURE: HISTORICAL TONSILLECTOMY Medical History Medical History Date Comments HTN (hypertension) DX:HTN (hyper tension) GERD (gastroesophageal reflux disease) DX:GERD (gastroesophageal reflux disease) Osteoarthritis 08/12/2020 DX:Osteoarthriti s Lumbago with sciatica, right side 08/12/2020 DX:Lumbago with sciatica, right side Hyperlipidemia 08/08/2020 DX:Hyperlipidemi a Lumbosacral pain, chronic 08/12/2020 DX:Lum bosacral pain, chronic PVD (peripheral vascular dis ease) ([facility] V24) 08/12/2020 DX:PVD (peripheral vascular disease) ([facility]) Lower extremity pain, bilateral 08/12/2020 DX:Lower extremity pain, bilateral; COMMENT: Lower legs and feet. Essential hypertension 08/08/2020 DX:Essent ial hypertension Mild intermittent asthma 08/08/2020 DX:Mild intermittent asthma DJD (degenerative joint disease) 08/12/2020 DX:DJD (degenerative joint disease); COMMENT: R femorotibial joint, R knee effusion. Osteopenia 08/12/2020 DX:Osteopenia; C OMMENT: 09/14/2018 xray Heart murmur 08/12/2020 DX:Heart murmur Non-rheumatic mitral valve disease 08/12/2020 DX:Non-rheumatic mitral valve disease Bradycardia, unspecified 08/12/2020 DX:Ricardo ycardia, unspecified; COMMENT: Cardiology consult 11/22/2019 and Holter monitor 11/01/2019 Allergic rhinitis 08/12/2020 DX:Allergic rh initis Varicose vein of leg 08/12/2020 DX:Varicose vein of leg History of shingles 08/12/2020 DX:History o f shingles Family History Medical History Relation Name Comments Diabetes Father Hyperlipidemia Father Hypertension Father Alzheimer's disease Mother Hyperten diana Relation Name Status Comments Father Mother Social History Tobacco Use Types Packs/Day Years Used Date Smoking Tobacco: Never Smokeless Tobacco: Never Alcohol Use Standard Drinks/Week Comments Not Currently 0 (1 standard drink = 0.6 oz pur e alcohol) Comments Unknown Sex and Gender Information Value Date Recorded Sex Assigned at Not on file Legal Sex Female 5:35 PM EST Gender Identity Not on file Sexual Orientation Not on file Obstetrics History Last Filed Vital Signs Vital Sign Reading Time Taken Comments Blood Pressure 122/72 08/14/2023 1:49 PM EDT L A rm Pulse - - Temperature - - Respiratory Rate - - Oxygen Saturation - - Inhaled Oxygen Concentration - - Weight - - Height - - Body Mass Index - - Plan of Treatment Health Maintenance Due Date Last Done Comments Breast Cancer Screening 1955 Zoster Vaccines (1 of 2) 2007 09/11/2001 Pneumococcal Vaccine: 50+ Years (2 of 2 - PCV) 09/03/2016 09/04/2015 RSV Immunization Adult Patients (1 - Risk 60-74 years 1-dose series) 2017 DTaP,Tdap,and Td Vaccines (3 - Td or Tdap) 12/30/2021 12/31/2011, 09/15/2001 Cholesterol Screening (Lipid Panel) 02/27/2022 Colorectal Cancer Screening: Colonoscopy 02/27/2022 Falls Risk Assessment 02/27/2022 Hepatitis C Screening 02/27/2022 Medicare Annual Wellness Visit 02/27/2022 Osteoporosis Screening (Bone Density Screening) 02/27/2022 Social Influencers of Health Screening 02/27/2022 Hypertension/CHF/CAD Annual BMP Blood Test 03/12/2022 COVID-19 Vaccine ( season) 2023 04/16/2021, 07/11/2020 Depression Screening 03/28/2024 Influenza Vaccine (#1) 2024 , 03/30/2022, 12/30/2020, Additional history exists Varicella Vaccines Aged Out 09/11/2001 No longer eligible based on patient's age to complete this topic HIB Vaccines Aged Out No longer eligi ble based on patient's age to complete this topic HPV Vaccines Aged Out No longer eligi ble based on patient's age to complete this topic Hepatitis A Vaccines Aged Out No long er eligible based on patient's age to complete this topic Hepatitis B Vaccines Aged Out No long er eligible based on patient's age to complete this topic IPV Vaccines Aged Out No longer eligi ble based on patient's age to complete this topic MMR Vaccines Aged Out No longer eligi ble based on patient's age to complete this topic Meningococcal ACWY Vaccine Aged Out N o longer eligible based on patient's age to complete this topic Meningococcal B Vaccine Aged Out No l onger eligible based on patient's age to complete this topic RSV Immunization Patients Under 20 months Aged Out No longer eligible based on patient's age to complete this topic Insurance MEDICAID - [place] [employer] MEDICARE Member Subscriber Plan / Payer (Ef fective 2023-Present) Name:Robyn Lee Relation to Subscriber:Self Name:Robyn Lee Payer ID:[id number] Group ID:[id number] Type:Not on file Address: [facility] [address] [id number] Care Teams Facilities Operator Relationship Specialty Start Date End Date Angelina Limon MD 2 [facility] , [address] Physician Associ D/B/A: [facility] AGATHA Abraham PCP - General 08/14/23
== END 2024-10-15 12:10 | disposition home or self-care (01) ==
LOC: HO.HMCH 10:59
PROVIDERS: PCP Internal Medicine; Visit Provider Internal Medicine
DX: Z00.00 Encounter for general adult medical examination without abnormal findings (principal); M79.671 Pain in right foot; Z23 Encounter for immunization

== ENCOUNTER → 2024-10-15 10:57 | Outpatient (BNVA) | payer OTHER, SELFPAY | PROVIDERS: PCP Internal Medicine; Visit Provider Internal Medicine | DX: Z00.00 Encounter for general adult medical examination without abnormal findings (principal); M79.671 Pain in right foot; M85.80 Other specified disorders of bone density and structure, unspecified site; K21.9 Gastro-esophageal reflux disease without esophagitis; I10 Essential (primary) hypertension; E78.5 Hyperlipidemia, unspecified; E55.9 Vitamin D deficiency, unspecified; Z23 Encounter for immunization | CPT/HCPCS: 90471; 90472; 90677; 90715; 96127; 99212; 99397 ==

== ENCOUNTER 2024-10-18 13:52 | Outpatient (AMB) | payer OTHER, SELFPAY ==
[2024-10-18 13:53] VITALS: BP 130/82; PULSE 55; O2SAT 94; BMI 29.8
--- NOTE | 2024-10-18 13:53 | A.OFFVIS_ITS ---
Vital Signs 10/18/24 13:53 Height 5 ft 2 in Weight 163 lb BMI 29.8 BP 130/82 Blood Pressure Location Rt brachial Position Sitting Pulse 55 Pulse Source Pulse Oximeter Pulse Oximetry (%) 94 Oxygen Delivery Method Room Air Intake Visit Reasons: Asthma Specialist Employee Labor Relations Required: Yes Specialist Employee Labor Relations Name: Katy Rausch МаринаAsiya Allergies peanut (PEANUT) Allergy (Severe, Verified 10/18/24 13:59) ANAPHYLAXIS penicillin G (Penicillin G) Allergy (Intermediate, Verified 10/18/24 13:59) RASH FRUIT Allergy (Severe, Uncoded 10/15/24 11:11) THROAT CLOSES HPI HPI Asthma: Details: 69-year-old lady, nonsmoker, followed for underlying severe persistent allergic asthma and KAMARI. Patient has been using Xolair, Advair and albuterol MDI with good control of her asthma symptoms. She had difficulties adjusting to using her CPAP machine and her equipment was taken away secondary to insufficient compliance. Patient does not want to continue trying CPAP therapy. She denies recent exacerbations. [facility] Medical History Skin cancer COVID-19 vaccine series completed Melena Moderate persistent asthma, uncomplicated Hypercalcemia Lumbago with sciatica, left side H/O nasal polyp GERD (gastroesophageal reflux disease) HLD (hyperlipidemia) HTN (hypertension) Surgical History Status post surgical removal of malignant neoplasm of skin H/O colonoscopy Hx of nasal polypectomy Hx of arthroscopy of right knee History of tonsillectomy Family History (Updated 10/15/24 @ 11:17 by Angelina Limon MD) Daughter Mental health disorder Daughter Mental health disorder Father CAD (coronary artery disease) Diabetes mellitus Mother Alzheimer disease Essential hypertension Social History Household Members: Spouse Housing: House Alcohol intake: never Patient Tobacco Use Status: Never used Tobacco e-Cigarette/Vaping Use: Never Used Second Hand Smoke Exposure: No service: No Current occupational status: unemployed Sexual orientation: Straight/Heterosexual Gender identity: Female Cognitive needs: No Hearing needs: No Vision needs: Yes Review of Systems Const Denies daytime sleepiness, Denies excessive sweating, Denies fatigue, Denies fever(s), Denies lethargy, Denies malaise, Denies night sweats, Denies snoring and Denies weight loss Eyes Denies blurry vision and Denies itchy eyes ENT Denies nasal congestion, Denies post nasal drip, Denies sinus pain, Denies sinus pressure and Denies other ( Thrush) Card Denies chest pain, Denies pedal edema, Denies dyspnea, Denies orthopnea and Denies paroxysmal nocturnal dyspnea Resp Denies cough, Denies hemoptysis, Denies excessive phlegm production, Denies dyspnea, Denies snoring and Denies wheezing GI Denies abdominal pain and Denies heartburn Musc Denies myalgias, Denies arthralgias and Denies joint swelling Skin/Breast Denies rash Neuro Denies memory loss and Denies seizure-like activity Psych Denies abnormal sleep pattern, Denies anxiety and Denies memory loss Endo Denies excessive sweating, Denies fatigue and Denies heat intolerance Tha/Lymph Denies easy bruising Aller/Immun Denies itchy eyes, Denies seasonal rhinorrhea and Denies wheezing Physical Exam Vital Signs: Last Vital Signs Pulse 55 10/18/24 13:53 BP 130/82 10/18/24 13:53 Pulse Ox 94 10/18/24 13:53 Oxygen Delivery Method Room Air 10/18/24 13:53 BMI result Body Mass Index 29.8 Const General: no acute distress and alert Nutritional Appearance: not obese Orientation/consciousness: Other orientation findings ( oriented) HEENT Head: Yes atraumatic Eyes General: appearance normal, both eyes and all related structures Sclerae: sclerae normal EOM: EOMs intact bilaterally Neck Neck: Yes supple Lymphatic: no lymphadenopathy noted Resp Effort & Inspection: normal respiratory effort and no use of accessory muscles Auscultation: clear to auscultation bilaterally Cardio Rate: regular rate Rhythm: regular rhythm Heart sounds: no gallops, no murmurs and no rubs Skin General skin exam: other ( warm) Extrem General: No clubbing, No cyanosis and No edema Assessment & Plan Assessment & Plan (1) Severe persistent asthma: Code(s): J45.50 - Severe persistent asthma, uncomplicated Category: Medical Plan: Well controlled on Xolair, Advair, and albuterol MDI/nebs. Continue current regimen. (2) Environmental allergies: Code(s): Z91.09 - Other allergy status, other than to drugs and biological substances Category: Medical Plan: Well controlled on Xolair. Continue current regimen. Coding Level of Care Code Est Pt Level 4 (37013) Diagnoses Severe persistent asthma J45.50 Environmental allergies Z91.09
--- OUTSIDE RECORDS SUMMARY | 2024-10-18 13:55 | XMS_ITS | Data Portability ---
Author Organization [facility] [address] Address [address] [place] [address] Assessment No assessment recorded. Plan of Treatment Reminders Order Date Submit Date Provider Last Modified By Organization Details Last Modified Time Details Appointments None recorded. Lab None recorded. Referral None recorded. Procedures None recorded. Surgeries None recorded. Imaging None recorded. Medication Orders prednisone 10 mg tablet 2022 [email or web address] [address] [place], [address], 16:44:38 Zithromax Z-Keith 250 mg tablet [email or web address] [place] [address] Pharm[address], [address] [place], [address], 16:44:38 Patient TargetsNo targets recorded. Patient Instructions Encounter Date Encounter Id Patient Instructions Last Modified By Organization Details Last Modified Time 12/27/2022 [id number] asthma in adults : care instructions Not available 12/27/2022 16:44:38 cough: care instructions Not available 12/27/2022 16:44:38 Reason for Referral None Reported. Problems Name Problem SNOMED Code Status Onset Date Resolution Date Notes Provider Name and Address Organization Details Recorded Time Asthma 201051813 Active ZELDA burks, [place] - [facility] 16:18:30 Hyperlipidemia 49364041 Active ZELDA MINEO null, PA - [facility] 16:18:50 Hypertensive disorder 81125630 Active ZELDA LAFLEUREnid burks, PA - [facility] 3 16:19:03 Exacerbation of intermittent asthma 020744097 Active 2022 Rudy Ac vitaliy [facility] 3 16:42:44 Problem Notes None recorded. Procedures Surgical History Date Name Laterality Status Provider Name and Address Organization Details Recorded Time Knee arthroscopy/arevalo rgery completed ZELDA LAFLEUREnid [place] - [facility] 12/27/2022 16:19:53 simple excision of nasal polyps completed ZELDA LAFLEUREnid [place] [facility] 12/27/2022 16:20:06 Imaging Results None recorded. Procedure Notes None recorded. Medical Equipment None Reported. Allergies Allergen ID Allergen Name Allergen Category Reaction Reaction Severity Criticality Documentation Date Start Date Code Code System Note Provider Name and Address Organization Details Recorded Time 462899 Product containin g penicilli n (product) medicatio n Not available Not available Not available 12/27/2022 31023 8001 SNOMED ZELDA LAFLEUREnid vitaliy [facility] 3 16:17:07 Medications Name Sig Start [...] Updated DateTime 3 157.48 cm 28.5 kg/m2 07059.4 1 g 96 % 96 % 73 [...] SNOMED-CT Code Diagnosis ICD10 Code Diagnosis Note [id number] [place] [address] [place] [address] 12/27/2022 15:01:44 12/27/2022 16:47:04 Acute upper respiratory infection 49989024 J06.9 Exacerbati on of intermittent asthma 154825080 J45.21 Based on your Presentati on, Exam, [...] . Severe Headache Thank you for using [facility] today, please feel free to contact our [...] 03/11/2023 2 [place] Robyn Yanza Colon [id number] Robyn Yanza Colon 12/27/2022 1 [place]: [place] [place] Robyn Femi Lee Colon [id number] Robyn Lee Colon 12/27/2022 1 [facility] (O) Robyn Yanza Colon [id number] Robyn Yanza Colon Notes Date Note Type Note Provider Name and Address Organization Details Recorded Time 12/28/19 23 text/htm l CoughReported by PatientHPIFor quality, patient reportsproductive coughbut reportsintermittent. For severity, patient reportsworseningbut reportsmoderate. For associated symptoms, patient reportschillsandwheezingbut reportsno fever,no chest pain,no heartburn,no nausea, andno vomiting. For source of patient information, patient reportsinformation obtained from patientandpatient arrived at urgent care ambulatory(via solomon islander interpretor). For duration, patient reportsintermittentand6 days. For context, patient reportspatient denies vapingandnon-smoker. Patient presents with green/yellow productive cough and chest congestion x 6 days . hx of asthma, treated with advair and albuterol inhaler and neb. thus far no relief from the rescue meds , cough and wheezing with diaphragm pain from coughing so much . Hillary Rai NP [address] [place], [address], [place] - [facility] 12/27/2022 16:44:59 OBGyn Episode No OBEpisode recorded.
--- OUTSIDE RECORDS SUMMARY | 2024-10-18 13:56 | XMS_ITS | Clinical Summary ---
Author Organization [address] [place] [address] [place] [phone] Phone Care Team Providers Care Aerospace Engineer Name Role Phone Angelina Limon MD Primary Care Provider Surgical History Surgery Date Site/Laterality Comments OTHER SURGICAL HISTORY Bilateral PROCEDURE: NJ EXCISION NASAL POLYP SIMPLE; COMMENT: 2014 KNEE ARTHROSCOPY W/ DEBRIDEMENT Right PROCEDURE: NJ ARTHRS KNEE DEBRIDEMENT/SHAVING ARTCLR CRTLG TONSILLECTOMY N/A PROCEDURE: HISTORICAL TONSILLECTOMY Medical History Medical History Date Comments HTN (hypertension) DX:HTN (hyper tension) GERD (gastroesophageal reflux disease) DX:GERD (gastroesophageal reflux disease) Osteoarthritis 08/12/2020 DX:Osteoarthriti s Lumbago with sciatica, right side 08/12/2020 DX:Lumbago with sciatica, right side Hyperlipidemia 08/08/2020 DX:Hyperlipidemi a Lumbosacral pain, chronic 08/12/2020 DX:Lum bosacral pain, chronic PVD (peripheral vascular dis ease) ([facility] V24) 08/12/2020 DX:PVD (peripheral vascular disease) ([facility]) Lower extremity pain, bilateral 08/12/2020 DX:Lower extremity [...] ID:[id number] Group ID:SCO Type:Not on file Address: [facility] [address] [phone] Care Teams Aerospace Engineer Relationship Specialty Start Date End Date Angelina Limon MD 2 [facility] , [address] Physician Associ D/B/A: [facility] AGATHA Abraham PCP - General 08/14/23
== END 2024-10-18 14:04 | disposition home or self-care (01) ==
LOC: HO.HPS 13:52
PROVIDERS: PCP Internal Medicine; Visit Provider Internal Medicine Pulmonary Disease
DX: J45.50 Severe persistent asthma, uncomplicated (principal); Z91.09 Other allergy status, other than to drugs and biological substances
CPT/HCPCS: 99214

== ENCOUNTER → 2024-10-18 13:52 | Outpatient (BNVA) | payer OTHER, SELFPAY | PROVIDERS: PCP Internal Medicine; Visit Provider Internal Medicine Pulmonary Disease | DX: J45.50 Severe persistent asthma, uncomplicated (principal); Z91.09 Other allergy status, other than to drugs and biological substances | CPT/HCPCS: 99212 ==

== ENCOUNTER 2024-11-22 10:50 | Outpatient (REF) | payer OTHER, SELFPAY ==
--- NOTE | ~2024-11-22 | MM_ITS ---
EXAMINATION: MM SCREENING DIGITAL BREAST TOMOSYNTHESIS, BILATERAL CLINICAL INFORMATION: Screening. Asymptomatic. COMPARISON: Comparison made to multiple prior, most recent November 10, 2023, and most remote March 10, 2016. TECHNIQUE: Digital breast tomosynthesis is performed in mediolateral oblique and craniocaudal views along with computer-aided detection (CAD). Additional views were taken if needed. FINDINGS: BREAST COMPOSITION: There are scattered areas of fibroglandular density (ACR BI-RADS breast composition Category b). BILATERAL BREASTS: No significant masses, suspicious calcifications or other abnormalities are seen in either breast. MM/MM tomosynthesis screening BI IMPRESSION: BILATERAL BREASTS: Negative, no mammographic evidence of malignancy. Normal interval follow-up is recommended in 12 months. ASSESSMENT: BI-RADS 1 - Negative RECOMMENDATION: Routine annual mammography screening. FOLLOW-UP: 1 year F/U This examination should not preclude the clinical evaluation of a suspicious palpable abnormality. This patient's information was entered into a reminder system with a target due date for their next mammogram. Electronically signed by: Hyun Bailey MD 11/24/2024 05:28 PM EDT
--- OUTSIDE RECORDS SUMMARY | 2024-11-22 12:18 | XMS_ITS | Clinical Summary ---
Author Organization [address] [place] [address] [place] [phone] Phone Care Team Providers Care Senior Major Gifts Officer Name Role Phone Angelina Limon MD Primary Care Provider [phone] Surgical History Surgery Date Site/Laterality Comments OTHER SURGICAL HISTORY Bilateral PROCEDURE: MS EXCISION NASAL POLYP SIMPLE; COMMENT: 2014 KNEE ARTHROSCOPY W/ DEBRIDEMENT Right PROCEDURE: MS ARTHRS KNEE DEBRIDEMENT/SHAVING ARTCLR CRTLG TONSILLECTOMY N/A PROCEDURE: HISTORICAL TONSILLECTOMY Medical History Medical History Date Comments HTN (hypertension) DX:HTN (hyper tension) GERD (gastroesophageal reflux disease) DX:GERD (gastroesophageal reflux disease) Osteoarthritis 08/12/2020 DX:Osteoarthriti s Lumbago with sciatica, right side 08/12/2020 DX:Lumbago with sciatica, right side Hyperlipidemia 08/08/2020 DX:Hyperlipidemi a Lumbosacral pain, chronic 08/12/2020 DX:Lum bosacral pain, chronic PVD (peripheral vascular dis ease) ([facility] V24) 08/12/2020 DX:PVD (peripheral vascular disease) ([facility]) Lower extremity pain, bilateral 08/12/2020 DX:Lower extremity [...] ID:[id number] Group ID:SCO Type:Not on file Address: [facility] [address] [address] Care Teams Senior Major Gifts Officer Relationship Specialty Start Date End Date Angelina Limon MD 2 [facility] , [address] Physician Associ D/B/A: [facility] AGATHA Abraham PCP - General 08/14/23
== END 2024-11-22 10:51 | disposition home or self-care (01) ==
LOC: HO.MAMMO 10:50
PROVIDERS: PCP Internal Medicine; Visit Provider Internal Medicine
DX: Z12.31 Encounter for screening mammogram for malignant neoplasm of breast (principal)
CPT/HCPCS: 77063; 77067

== ENCOUNTER → 2024-11-22 11:00 | Outpatient (BNV) | payer OTHER, SELFPAY | PROVIDERS: PCP Internal Medicine; Visit Provider Radiology Body Imaging | DX: Z12.31 Encounter for screening mammogram for malignant neoplasm of breast (principal) | CPT/HCPCS: 77063; 77067 ==

== ENCOUNTER 2024-12-15 17:03 | Inpatient (IN) | payer OTHER, SELFPAY ==
[2024-12-15] VITALS (8 sets, daily range): BP systolic 111–163; BP diastolic 59–75; PULSE 47–56; RESP 14–18; TEMP 36.2–36.8; O2SAT 94–143; BMI 29.2
--- NOTE | ~2024-12-15 | XR_ITS ---
CLINICAL HISTORY: cough 2 view chest x-ray Comparison: None provided Findings: No consolidation or effusion. Borderline heart size. No acute fracture. IMPRESSION: 1. No acute findings. This document has been electronically signed by: Michelle Guerrier MD on 12/15/2024 18:33:26
--- NOTE | 2024-12-15 17:22 | ED.URI ---
HPI - URI/Sore Throat General Chief Complaint: General Medical Stated Complaint: headache, chills, weakness in hands (dx. flu) Time Seen by Provider: 12/15/24 17:36 History of Present Illness HPI Narrative: Patient is a 69-year-old female presents today with having headache generalized malaise coughing congestion tested positive for influenza 2 days ago. Had a history of low heart rate. Patient is complaining of increasing weakness generalized malaise coughing aches. Was recently started on Tamiflu. Patient from home there is no bloody stool there is no chest pain there is change in sleep pattern due to the coughing upper respiratory symptoms. There is no diaphoresis there is no chest pain. Related Data Home Medications ?Medication ?Instructions ?Recorded ?Confirmed fluticasone propionate 50 spray intranasal 12/07/22 10/15/24 mcg/actuation nasal spray,suspension Previous Rx's ?Medication ?Instructions ?Recorded CPAP (CPAP Machine/Device) #1 ea 08/11/22 omalizumab 150 mg subcutaneous 150 mg subcut Q4W #1 ea 07/01/23 solution diclofenac sodium 1 % topical gel 2 g topical QID 30 days #100 grams 02/29/24 (Arthritis Pain (diclofenac)) albuterol sulfate 2.5 mg/3 mL 2.5 mg (3 mL) inhalation QID PRN 05/23/24 (0.083 %) solution for nebulization shortness of breath or wheezing 30 days #75 mL pantoprazole 40 mg tablet,delayed 40 mg PO DAILY 90 days #90 tabs 07/26/24 release calcium 500 mg (as 1 tab PO BID 90 days #180 tabs 08/02/24 carbonate)-vitamin D3 10 mcg (400 unit) tablet (Oyster Shell Calcium-Vitamin D3) amlodipine 5 mg tablet 5 mg PO DAILY 90 days #90 tabs 09/08/24 cholecalciferol (vitamin D3) 25 25 mcg PO DAILY 90 days #90 caps 09/12/24 mcg (1,000 unit) capsule losartan 100 mg tablet 100 mg PO DAILY #30 tabs 10/01/24 simvastatin 20 mg tablet 20 mg PO BEDTIME #30 tabs 10/01/24 hydrochlorothiazide 25 mg tablet 25 mg PO DAILY 90 days #90 tabs 10/30/24 Advair HFA 115 mcg-21 2 puff inhalation Q12H #12 grams 11/19/24 mcg/actuation aerosol inhaler (fluticasone propion-salmeterol) cetirizine 10 mg tablet (Allergy 10 mg PO BID PRN allergy symptoms 12/08/24 Relief (cetirizine)) 90 days #90 tabs betamethasone dipropionate 0.05 % 1 appl topical DAILY PRN skin 12/13/24 topical ointment irritation 30 days #45 grams Allergies Allergy/AdvReac Type Severity Reaction Status Date / Time peanut (PEANUT) Allergy Severe ANAPHYLAXIS Verified 12/15/24 17:23 penicillin G (Penicillin G) Allergy Intermediate RASH Verified 12/15/24 17:23 FRUIT Allergy Severe THROAT Uncoded 10/15/24 11:11 CLOSES Review of Systems Review of Systems: Positive coughing congestion upper respiratory symptoms Positive generalized body ache PMFSH Past Medical History Attestation statement: The following information was validated with the patient. Medical History Skin cancer COVID-19 vaccine series completed Melena Moderate persistent asthma, uncomplicated Hypercalcemia Lumbago with sciatica, left side H/O nasal polyp GERD (gastroesophageal reflux disease) HLD (hyperlipidemia) HTN (hypertension) Surgical History Status post surgical removal of malignant neoplasm of skin H/O colonoscopy Hx of nasal polypectomy Hx of arthroscopy of right knee History of tonsillectomy Family History Family History Daughter Mental health disorder Daughter Mental health disorder Father CAD (coronary artery disease) Diabetes mellitus Mother Alzheimer disease Essential hypertension Social History Social History Household Members: Spouse Housing: House Alcohol intake: never Patient Tobacco Use Status: Never used Tobacco e-Cigarette/Vaping Use: Never Used Second Hand Smoke Exposure: No Advance Directives: No Advance Directives Information Provided: No Do you have a plan to hurt others: No Plan service: No Current occupational status: unemployed Sexual orientation: Straight/Heterosexual Gender identity: Female Cognitive needs: No Hearing needs: No Vision needs: Yes Physical Exam Exam: Exam: Appearance: Alert. Oriented X3. No acute distress. Eyes: Pupils equal, round and reactive to light. ENT: Pharynx normal. Neck: Normal inspection. Neck supple. No lymph nodes noted. No crepitus CVS: Normal heart rate and rhythm. Pulses normal. Normal S1 and S2 Respiratory: No respiratory distress. Breath sounds normal. No Wheezing. No rales Abdomen: Soft and nontender. No rigidity. No distention. good BS x4 Skin: Skin warm and dry. Normal skin color. Normal skin turgor. Extremities: No lower extremity edema. Neurovascular intact to all extremities. No Lacerations. No Rash Neuro: Oriented X 3. No motor deficit. No sensory deficit. Moving all extermities. No slurred speech Vital Signs: Vital Signs: Last Vital Signs Temp 97.2 F 12/15/24 19:55 Pulse 47 L 12/15/24 19:55 Resp 16 12/15/24 19:55 BP 163/61 H 12/15/24 19:55 Pulse Ox 97 12/15/24 19:55 O2 Del Method Room Air 12/15/24 19:55 BMI result Body Mass Index 29.2 Course Course Course Narrative: This is an RME: Additional HPI, ROS, PE not included below will be deferred to primary provider. RME assessment and note performed by: Mona Pena PA-C This is a 89-dlct-ooz-indonesian speaking female, with a hx of HTN, HLD, GERD, who presents to the ER with complaints of low pulse, generalized weakness, subjective fevers, cough, congestion. Went to on tuesday and was diagnosed with the flu. They started her on tamiflu, albuterol, and prednisone. Plan: Labs, cxr, ekg, further ER eval needed Medications Administered Generic Name Dose Route Start Last Admin Trade Name Freq PRN Reason Stop Dose Admin Potassium Chloride 10 meq in 100 mls @ 100 mls/hr 12/15/24 18:45 12/15/24 19:55 Potassium Chloride/H20 IV 12/15/24 22:44 100 mls/hr Q1H MALATHI Administration Discontinued Medications Generic Name Dose Route Start Last Admin Trade Name Freq PRN Reason Stop Dose Admin Sodium Chloride 1,000 mls @ 999 mls/hr 12/15/24 18:15 12/15/24 19:21 Ns IV 12/15/24 19:15 Infused .Q1H1M MALATHI Infusion Potassium Chloride 40 meq 12/15/24 18:36 12/15/24 18:55 Potassium Chloride Packet 20 Meq Packet PO 12/15/24 18:37 Not Given ONCE ONE Medical Decision Making Medical Decision Making [facility] Narrative: Patient has influenza. Presented with generalized malaise weakness likely the cause of patient's symptoms however on the monitor patient had a sinus bradycardia heart rate down into the 30s. An EKG was obtained which showed the same. Patient's TSH was normal. Electrolytes unremarkable troponin was negative. Case consulted by the Cardiology team agreed patient should be observed overnight. Already on Tamiflu. Currently in stable condition no distress. Differential Diagnosis Differential Diagnoses: The differential diagnosis associated with the presentation includes Influenza, bradycardia, electrolyte disturbance, thyroid problem Admission/Observation Consideration of admission/observation: Escalation of care including admission/observation considered Lab Data [facility] Lab Attestation statement: I reviewed the patient's lab results. 12/15/24 17:43 12/15/24 17:43 Labs: Lab Results 12/15/24 12/15/24 12/15/24 Range/Units 17:43 17:44 18:24 WBC 9.0 (4.8-10.8) X10*3/uL RBC 4.55 (4.20-5.50) X10*6/uL Hgb 14.0 (12.0-16.0) g/dl Hct 40.5 (37.0-47.0) % MCV 89.0 (80.0-98.0) fL MCH 30.8 (27.0-33.0) pg MCHC 34.6 (31.0-35.0) g/dl RDW 13.2 (11.0-16.0) % Plt Count 299 (160-400) X10*3/uL MPV 9.4 (9.4-12.3) fL Immature Gran % (Auto) 0.2 (0.0-0.4) % Neut % (Auto) 45.3 (45-73) % Lymph % (Auto) 43.0 H (20-40) % Whiteside % (Auto) 10.7 (2-11) % Eos % (Auto) 0.4 (0-4) % Baso % (Auto) 0.4 (0-2) % Lymph # (Auto) 3.9 (1.2-4.9) X10*3/uL Whiteside # (Auto) 1.0 (0.1-1.2) X10*3/uL Eos # (Auto) 0.0 (0.0-0.4) X10*3/uL Baso # (Auto) 0.0 (0.0-0.2) X10*3/uL Abs Immat Gran (auto) 0.02 (0.00-0.03) X10*3/uL Absolute Neuts (auto) 4.1 (2.0-8.3) x10*3/uL Absolute Nucleated RBC 0.000 (0.0-0.012) X10*3/uL Nucleated RBC % (auto) 0.0 (0.0-0.2) /100WBC Sodium 141 (135-145) mmol/L Potassium 2.8 L* D (3.3-5.1) mmol/L Chloride 103 (96-108) mmol/L Carbon Dioxide 28 (22-29) mmol/L Anion Gap 13 (12-20) BUN 22 H (9-16) mg/dL Creatinine 0.68 (0.5-1.4) mg/dL Estim Creat Clear Calc 74.8 Estimated GFR > 60 Random Glucose 91 (60-115) mg/dL Calcium 10.0 (8.4-10.2) mg/dL Magnesium 2.0 (1.6-2.6) mg/dL Total Bilirubin 0.4 (0.0-1.0) mg/dL Direct Bilirubin 0.1 (0.0-0.5) mg/dL AST 29 (5-31) U/L ALT 30 (0-31) U/L Alkaline Phosphatase 72 (39-117) U/L Troponin I High Sens < 2.7 (<3.5-17.0) ng/L Total Protein 7.8 (6.5-8.0) g/dL Albumin 4.4 (3.5-5.0) g/dL TSH 1.20 (0.32-4.0) uIU/mL Influenza Type A (PCR) POSITIVE A (Negative) Influenza Type B (PCR) NEGATIVE (Negative) RSV RNA Qual (PCR) NEGATIVE (Negative) SARS-CoV-2 RNA (RT-PCR) NEGATIVE (Negative) Independent Interpretation I performed an independent interpretation of an: EKG (My interpretation patient's EKG showed a sinus rhythm heart rate is 35 NJ QRS QTC normal no acute ST segment elevation) External Record Review External record reviewed: Primary care record Social Determinants Patient?s care significantly limited by Social Determinants of Health including: Problems related to primary support group Discharge Plan Discharge Clinical Impression: Bradycardia, Influenza Patient Disposition: Admitted As Inpatient
--- NOTE | 2024-12-15 17:25 | ECG_ITS ---
Test Reason : JAYSON Blood Pressure : */* mmHG Vent. Rate : 37 BPM Atrial Rate : 37 BPM P-R Int : 200 ms QRS Dur : 94 ms QT Int : 502 ms P-R-T Axes : 41 11 8 degrees QTcB Int : 394 ms Marked sinus bradycardia RSR' or QR pattern in V1 suggests right ventricular conduction delay Abnormal ECG When compared with ECG of 03-Jul-2014 16:30, Vent. rate has decreased by 31 bpm Referred By: Mona Pena Electronically Signed By: ZAIRA ROSS
--- OUTSIDE RECORDS SUMMARY | 2024-12-15 17:40 | XMS_ITS | Clinical Summary ---
Author Organization [address] [place] [address] [place] [id number] Phone Care Team Providers Care Power Lineman Name Role Phone Angelina Limon MD Primary Care Provider [phone] Surgical History Surgery Date Site/Laterality Comments OTHER SURGICAL HISTORY Bilateral PROCEDURE: NC EXCISION NASAL POLYP SIMPLE; COMMENT: 2014 KNEE ARTHROSCOPY W/ DEBRIDEMENT Right PROCEDURE: NC ARTHRS KNEE DEBRIDEMENT/SHAVING ARTCLR CRTLG TONSILLECTOMY N/A PROCEDURE: HISTORICAL TONSILLECTOMY Medical History Medical History Date Comments HTN (hypertension) DX:HTN (hyper tension) GERD (gastroesophageal reflux disease) DX:GERD (gastroesophageal reflux disease) Osteoarthritis 08/12/2020 DX:Osteoarthriti s Lumbago with sciatica, right side 08/12/2020 DX:Lumbago with sciatica, right side Hyperlipidemia 08/08/2020 DX:Hyperlipidemi a Lumbosacral pain, chronic 08/12/2020 DX:Lum bosacral pain, chronic PVD (peripheral vascular dis ease) ([facility] V24) 08/12/2020 DX:PVD (peripheral vascular disease) ([facility]) Lower extremity pain, bilateral 08/12/2020 DX:Lower extremity [...] 02/27/2022 Hypertension/CHF/CAD Annual BMP Blood Test 03/12/2022 Depression Screening 03/28/2024 COVID-19 Vaccine (3 - 2025-26 season) 2024 04/16/2021, 07/11/2020 Influenza Vaccine (#1) 2024 , 03/30/2022, 12/30/2020, [...] ID:[id number] Group ID:[id number] Type:Not on file Address: [facility] [address] [phone] Care Teams Power Lineman Relationship Specialty Start Date End Date Angelina Limon MD 2 [facility] , [address] Physician Associ D/B/A: [facility] AGATHA Abraham PCP - General 08/14/23
[2024-12-15 17:53] LABS: MANUAL DIFF FLAG NO
[2024-12-15 17:54] LABS: Hematocrit 40.5 % (37.0-47.0); Hemoglobin 14.0 g/dl (12.0-16.0); Imm Gran Abs Auto 0.02 X10*3/uL (0.00-0.03); Imm Gran Pct Auto 0.2 % (0.0-0.4); Lymphocytes Absolute Auto 3.9 X10*3/uL (1.2-4.9); Mean Corpuscular HGB Conc 34.6 g/dl (31.0-35.0); Mean Corpuscular Hemoglobin 30.8 pg (27.0-33.0); Mean Corpuscular Volume 89.0 fL (80.0-98.0); NRBC Abs Auto 0.000 X10*3/uL (0.0-0.012); NRBC Pct Auto 0.0 /100WBC (0.0-0.2); Platelet Count 299 X10*3/uL (160-400); Red Blood Count 4.55 X10*6/uL (4.20-5.50); White Blood Count 9.0 X10*3/uL (4.8-10.8)
[2024-12-15 18:26] LABS: Troponin-I High Sensitivity < 2.7 ng/L (<3.5-17.0)
[2024-12-15 18:26] LABS: Alanine Aminotransferase 30 U/L (0-31); Albumin Level 4.4 g/dL (3.5-5.0); Alkaline Phosphatase 72 U/L (39-117); Anion Gap 13 (12-20); Aspartate Amino Transferase 29 U/L (5-31); Blood Urea Nitrogen 22 mg/dL (9-16); Calcium 10.0 mg/dL (8.4-10.2); Carbon Dioxide 28 mmol/L (22-29); Chloride 103 mmol/L (96-108); Creatinine Clr Calc Pharmacy 74.8; Estimated Glomerular Filt Rate > 60; Magnesium 2.0 mg/dL (1.6-2.6); Potassium 2.8 mmol/L (3.3-5.1); Sodium 141 mmol/L (135-145); Total Protein 7.8 g/dL (6.5-8.0)
[2024-12-15 18:37] LABS: Thyroid Stimulating Hormone 1.20 uIU/mL (0.32-4.0)
[2024-12-15] MEDS: Potassium Chloride/H20 10 MEQ/100 ML PIGGYBACK 100 MEQ IV ×2 (18:48→19:55)
[2024-12-15 19:14] LABS: Resp Syncy Virus RNA Qual PCR NEGATIVE (Negative); SARS COV2 PCR INHOUSE NEGATIVE (Negative)
--- NOTE | 2024-12-15 20:20 | PM.IMHP ---
History of Present Illness Date of Service: 12/15/24 Attending physician on admission: Kayla Gu Chief Complaint: Flu Like symptoms Dining Chair Seat Cushion Trimmer used for interview Patient is a 69-year-old female Serbian-speaking only with past medical history hypertension, COPD/asthma, allergic rhinitis, knee replacement presents to the emergency department for noted low heart rate earlier today while checking her blood pressure via her electronic machine. Patient was also diagnosed with the flu this past Tuesday and was still symptomatic with a productive cough of yellow sputum and a scratchy throat. Patient has been started on Tamiflu and that is continued since Tuesday. Patient denies any fever, chills, nausea or vomiting. Patient is not having any chest pain or shortness of breath at rest. Workup in the ED included electrolytes and potassium noted to be 2.8. Patient's potassium has been repleted with 10 mEq KCL x4 and oral potassium. Patient's TSH was normal. EKG notes a rate of 46 with a normal NV and no evidence of heart block. QTC also normal. Magnesium 2.0. No murmur on exam. Cardiology was consulted by the ED provider and Cardiology felt it was appropriate to admit patient to this hospital. There was some concern for possible myocarditis secondary to influenza. Patient currently stable with ongoing normal hemodynamics other than heart rate. Patient has not required inotrope support in the ED. echo is pending. Patient did again test positive for influenza a today. Review of Systems Review of Systems: Patient denies any chest pain, shortness of breath at rest or with exertion but is having a productive cough and a scratchy throat. The production is yellow sputum in small amounts. Patient denies any trouble swallowing. Patient is not having abdominal pain. Patient denies any diarrhea or constipation. Yes all other systems are reviewed and are negative [facility] Medical History (Updated 12/15/24 @ 20:58 by ES Chiu) Asthma Skin cancer COVID-19 vaccine series completed Melena Moderate persistent asthma, uncomplicated Hypercalcemia Lumbago with sciatica, left side H/O nasal polyp GERD (gastroesophageal reflux disease) HLD (hyperlipidemia) HTN (hypertension) Cognitive capacity: Alert and orientated x3 Functional capacity: independent ambulation Patient : No Family History Daughter Mental health disorder Daughter Mental health disorder Father CAD (coronary artery disease) Diabetes mellitus Mother Alzheimer disease Essential hypertension Surgical History Status post surgical removal of malignant neoplasm of skin H/O colonoscopy Hx of nasal polypectomy Hx of arthroscopy of right knee History of tonsillectomy Social History Household Members: Spouse Housing: House Alcohol intake: never Patient Tobacco Use Status: Never used Tobacco Smoked in Last 30 Days: No e-Cigarette/Vaping Use: Never Used Second Hand Smoke Exposure: No Use of substances other than those prescribed or required for medical reasons: No Advance Directives: No Advance Directives Information Provided: No Do you have a plan to hurt others: No Plan Nutrition Risks: No Nutritional Risk Patient : No service: No Current occupational status: unemployed Sexual orientation: Straight/Heterosexual Gender identity: Female Cognitive needs: No Hearing needs: No Vision needs: Yes Ebola Risk: Travel/Contact With Anyone From Affected Area/s: No Has Patient Experienced Ebola Symptoms: No Meds Allergies Allergy/AdvReac Type Severity Reaction Status Date / Time peanut (PEANUT) Allergy Severe ANAPHYLAXIS Verified 12/15/24 17:23 penicillin G (Penicillin G) Allergy Intermediate RASH Verified 12/15/24 17:23 FRUIT Allergy Severe THROAT Uncoded 10/15/24 11:11 CLOSES Active Medications: Current Medications Acetaminophen (Acetaminophen 325 Mg Tablet) 650 mg PO Q6H PRN PRN Reason: Pain, Mild 1-3,fever,headache Albuterol/Ipratropium (Albuterol/Iprat 2.5/0.5mg 3 Ml Ampul.Neb) 3 ml INHALE Q4H PRN PRN Reason: Shortness of Breath/Wheezing Calcium Carbonate (Calcium Carbonate 750 Mg Tab.Chew) 750 mg PO Q4H PRN PRN Reason: Heartburn Enoxaparin Sodium (Enoxaparin Sodium 40 Mg/0.4 Ml Syringe) 40 mg SUBCUT Q24H [facility] Potassium Chloride (Potassium Chloride/H20) 10 meq in 100 mls @ 100 mls/hr IV Q1H [facility] Stop: 12/15/24 22:44 Last Admin: 12/15/24 19:55 Dose: 100 mls/hr Magnesium Hydroxide (Milk Of Magnesia 30 Ml Oral.Susp) 30 ml PO DAILY PRN PRN Reason: Constipation Melatonin (Melatonin 3 Mg Tablet) 6 mg PO BEDTIME PRN PRN Reason: Insomnia Ondansetron HCl (Ondansetron Hcl 4 Mg/2 Ml Vial) 4 mg IVPUSH Q8H PRN PRN Reason: Nausea and Vomiting Oseltamivir Phosphate (Oseltamivir Phosphate 75 Mg Capsule) 75 mg PO Q12H [facility] Stop: 12/20/24 09:01 Polyethylene Glycol (Polyethylene Glycol 3350 17 Gm Powd.Pack) 17 gm PO DAILY PRN PRN Reason: Constipation Senna (Sennosides 8.6 Mg Tablet) 17.2 mg PO BEDTIME [facility] Sodium Chloride (0.9 % Sodium Chloride Flush 3 Ml Syringe) 3 ml IVFLUSH QSHIFT [facility] Home Medications ?Medication ?Instructions ?Recorded ?Confirmed ?Last Taken ?Type fluticasone propionate 50 spray intranasal 12/07/22 10/15/24 Unknown History mcg/actuation nasal spray,suspension Physical Exam Vital Signs and Narrative: Vital Signs: Last Vital Signs Temp 97.2 F 12/15/24 19:55 Pulse 47 L 12/15/24 19:55 Resp 16 12/15/24 19:55 BP 163/61 H 12/15/24 19:55 Pulse Ox 97 12/15/24 19:55 O2 Del Method Room Air 12/15/24 19:55 BMI result Body Mass Index 29.2 Alert and orientated X3, able to give good history using graduate civil engineer Neuro: CN II-X11 intact, no deficits, visual acuity intact EYES: PERRLA, EOM intact, sclerae nonicteric, conjunctiva pink ENT: hearing intact, no issues with swallowing, uvula midline, lips moist, nares patent no epistaxis Cardiac: S1 S2 RRR, bradycardic heart rate 56, no murmur, no JVD, no edema in Lower ext Pulmonary: lungs diminished bilaterally Abdominal: BS active in all 4 quadrants, no guarding, tenderness, rebounding MSK: strength 5/5 upper and lower extremities : no CVA tenderness no bladder distension Extremities: no edema in lower extremities, PT and DP pulses palpable +2 Psych: mood stable, judgement and insight good Skin: No new rashes or lesions Results Labs 12/15/24 17:43 12/15/24 17:43 Labs: Laboratory Results - last 24 hr 12/15/24 12/15/24 12/15/24 17:43 17:44 18:24 MCV 89.0 MCH 30.8 MCHC 34.6 RDW 13.2 Plt Count 299 MPV 9.4 Immature Gran % (Auto) 0.2 Neut % (Auto) 45.3 Lymph % (Auto) 43.0 H [place] % (Auto) 10.7 Eos % (Auto) 0.4 Baso % (Auto) 0.4 Lymph # (Auto) 3.9 [place] # (Auto) 1.0 Eos # (Auto) 0.0 Baso # (Auto) 0.0 Abs Immat Gran (auto) 0.02 Absolute Neuts (auto) 4.1 Absolute Nucleated RBC 0.000 Nucleated RBC % (auto) 0.0 Anion Gap 13 Estim Creat Clear Calc 74.8 Estimated GFR > 60 Random Glucose 91 Calcium 10.0 Magnesium 2.0 Total Bilirubin 0.4 Direct Bilirubin 0.1 AST 29 ALT 30 Alkaline Phosphatase 72 Troponin I High Sens < 2.7 Total Protein 7.8 Albumin 4.4 TSH 1.20 Influenza Type A (PCR) POSITIVE A Influenza Type B (PCR) NEGATIVE RSV RNA Qual (PCR) NEGATIVE SARS-CoV-2 RNA (RT-PCR) NEGATIVE ECG Attestation: I personally reviewed and interpreted this ECG as follows: (Sinus bradycardia normal NV normal QTC RSR or QR pattern in V1 suggests right ventricular conduction delay) Prior ECG tracings: available for review Imaging Radiologist's Impressions: Chest x-ray No consolidation or effusion borderline heart size No acute findings Assessment and Plan (1) Influenza A: Status: Acute (2) Bradycardia: Status: Acute Plan Patient is a 69-year-old female Serbian-speaking only with past medical history hypertension, COPD/asthma, allergic rhinitis, knee replacement presents to the emergency department for noted low heart rate earlier today while checking her blood pressure via her electronic machine. Patient was also diagnosed with the flu this past Tuesday and was still symptomatic with a productive cough of yellow sputum and a scratchy throat. ED provider consulted Cardiology andcardiology felt patient could be admitted to this hospital for bradycardia and influenza A. Influenza a Tamiflu continued in the ED Contact precautions in place Supportive care, antitussives Encourage hydration Bradycardia with normal NV and no evidence of heart block Potassium 2.8, replacement ordered ? Myocarditis secondary to influenza Echocardiogram ordered Patient is not currently on any AV sudhir blocking agents Lyme panel sent (no heart block, sent for rule out) Telemetry Cardiology consulted No indication for inotrope support at this time or atrpine prn Hypokalemia Potassium initially 2.8 2 runs of KCl 10 mEq, patient could not tolerate additional IV runs 40 of KCl p.o. x1 Forty of KCl ordered daily as well GERD Omeprazole ordered Hyperlipidemia Continue statin DVT prophylaxis: Lovenox Med rec pending Full Code status Quality Stroke Does the patient have a stroke diagnosis?: No Reason for No Anti-thrombotic by Day Two: N/A - Med Ordered VTE Prior VTE?: No VTE Risk Level:: Medical - moderate - high VTE Device Contraindication: N/A - Device Ordered VTE Drug Contraindication: N/A - Med Ordered
--- NOTE | 2024-12-15 21:02 | PC.NURSE ---
Per FIRST OFFICER AND FLIGHT INSTRUCTOR Odalis DC IV KCL pt not tolerating infusin-- PO ordered- pt pt to have repeat K+at 2300
[2024-12-15] MEDS: Potassium Chloride ER 20 MEQ TAB.ER.PRT 40 MEQ PO (21:23)
[2024-12-15] MEDS: guaiFENesin 200 MG/10 ML 10 ML LIQUID PO (21:24)
--- NOTE | 2024-12-15 22:38 | HO.NURTONUR ---
69 y/o female Central African-speaking only PMHx: HTN, COPD/asthma, allergic rhinitis, TKR. Pt is A&O x4 independent with ADL's at baseline, ambulates w/o assistance. continent of bowel and bladder Pt presents to ED after a low HR reading earlier today while checking her B/P w/ home cuff. Pt seen at Tuesday and tested positive for Flu*. Tamiflu was started in however sx of productive cough w/yellow sputum persist. CXR negative for PNA Pt denies any fever, chills, n/v/d, no c/o chest pain, SOB or SAUCEDO. EKG obtained pt was found to be sinus andrea at 37bpm. 22g IV access was established in R-hand, labs obtained w/ potassium of 2.8, pt again tested positive for influenza A. Pt K+ repleted w/ 10 mEq KCL x2 as pt did not tolerate the full 4 bags, d/c'd by COMPRESS ENGINEER. Pt rec 40meq PO per MAY. Pending repeat K+ at 2300. Patient B/P stable at this time. Echo has been ordered. Pt to be admitted for further eval and tx for possible myocarditis secondary to influenza.
[2024-12-16] VITALS: BP 107/58; PULSE 58; RESP 16; O2SAT 94
[2024-12-16] MEDS: 0.9 % Sodium Chloride Flush 3 ML SYRINGE IVFLUSH ×3 (00:16→17:43)
[2024-12-16 02:08] VITALS: BP 132/73; PULSE 55; RESP 15; TEMP 36.4; O2SAT 97
[2024-12-16 05:44] VITALS: BP 129/72; PULSE 48; RESP 14; TEMP 36.6; O2SAT 96
[2024-12-16] MEDS: Potassium Chloride ER 20 MEQ TAB.ER.PRT 40 MEQ PO (07:29)
--- NOTE | 2024-12-16 07:44 | PC.NURSE ---
Resumed care of pt at 0700, daughter at bedside and update on current plan in place, all questions answered at this time. Pt given AM medications early, monitor placed on privacy mode so that pt can try and sleep as she has not stopped looking and worrying about the monitor all night. Provider notified by night nurse of no AM labs, labs ordered and obtained at this time. Pt is going to attempt to rest at this time, denies SOB/CP. breathing is even and unlabored on RA. IV flushing well at this time, call garcía within reach.
[2024-12-16 08:03] LABS: Hematocrit 40.4 % (37.0-47.0); Hemoglobin 13.8 g/dl (12.0-16.0); Imm Gran Abs Auto 0.01 X10*3/uL (0.00-0.03); Imm Gran Pct Auto 0.1 % (0.0-0.4); Lymphocytes Absolute Auto 3.8 X10*3/uL (1.2-4.9); MANUAL DIFF FLAG SCAN; Mean Corpuscular HGB Conc 34.2 g/dl (31.0-35.0); Mean Corpuscular Hemoglobin 30.8 pg (27.0-33.0); Mean Corpuscular Volume 90.2 fL (80.0-98.0); NRBC Abs Auto 0.000 X10*3/uL (0.0-0.012); NRBC Pct Auto 0.0 /100WBC (0.0-0.2); Platelet Count 288 X10*3/uL (160-400); Red Blood Count 4.48 X10*6/uL (4.20-5.50); SCAN SMEAR FLAG 1; White Blood Count 7.6 X10*3/uL (4.8-10.8)
[2024-12-16 08:34] LABS: Alanine Aminotransferase 26 U/L (0-31); Albumin Level 3.9 g/dL (3.5-5.0); Alkaline Phosphatase 62 U/L (39-117); Aspartate Amino Transferase 24 U/L (5-31); Blood Urea Nitrogen 14 mg/dL (9-16); Calcium 9.1 mg/dL (8.4-10.2); Creatinine Clr Calc Pharmacy 81.8; Estimated Glomerular Filt Rate > 60; Total Protein 6.9 g/dL (6.5-8.0)
[2024-12-16 09:07] LABS: Anion Gap 10 (12-20); Carbon Dioxide 27 mmol/L (22-29); Chloride 107 mmol/L (96-108); Potassium 3.3 mmol/L (3.3-5.1); Sodium 141 mmol/L (135-145)
--- NOTE | 2024-12-16 09:55 | P.CONCA_ITS ---
History of Present Illness History of Present Illness Date of Service: 12/16/24 Chief complaint: Acute influenza infection, bradycardia Narrative: This is a cardiology consultation regarding bradycardia. Patient is Faroese- speaking and discussed using community relations manager. Essentially, she comes here because of noted slow heart rate while checking the blood pressure. She also got diagnosed with influenza few days back. She was symptomatic with productive cough with the lowest put him and scratchy throat. Then it seems that she has been put on Tamiflu. Otherwise, patient states that she is feeling fine. She has got no complaints like feeling dizzy or presyncopal. No other complaints like anginal-type chest pains or shortness of breath. It was apparently felt that potassium was low at 2.8. That has been repleted. From the cardiac standpoint, EKG had shown heart rate in the 40s and then she was admitted. Today, she states she feels well. No prior cardiac history. Review of Systems 2 Review of Systems: Yes all other systems are reviewed and are negative Constitutional: Constitutional: Reports as per HPI and Reports no additional constitutional complaints Eyes: Eyes: Reports as per HPI and Denies no additional eye complaints ENT: Denies system reviewed and no additional complaints, except as documented and Reports as per HPI Cardiovascular: Cardiovascular: Reports as per HPI, Reports no additional cardiovascular complaints, Denies acrocyanosis, Denies cool extremities, Denies chest pain, Denies leg edema, Denies lightheadedness, Denies palpitations and Denies dyspnea Respiratory: Respiratory: Reports as per HPI, Denies no additional respiratory complaints and Denies dyspnea Gastrointestinal: Gastrointestinal: Reports as per HPI and Denies no additional gastrointestinal complaints Genitourinary: Genitourinary: Reports as per HPI Musculoskeletal: Musculoskeletal: Reports no additional musculoskeletal complaints and Reports as per HPI Integumentary/Breasts: Skin/Breast: Reports system reviewed and no additional complaints, except as docu Neurologic: Reports system reviewed and no additional complaints, except as documented and Reports as per HPI Psychiatric: Psychiatric: Reports no additional psychiatric complaints and Reports as per HPI Endocrine: Endocrine: Reports no additional endocrine complaints, Reports as per HPI and Denies palpitations Hematologic/Lymphatic: Hematologic/Lymphatic: Reports no additional hematologic/lymphatic complaints and Reports as per HPI Allergic/Immunologic: Allergic/Immunologic: Reports no additional allergic/immunologic complaints and Reports as per HPI [facility] Past Medical History Medical History (Updated 12/15/24 @ 20:58 by ES Chiu) Asthma Skin cancer COVID-19 vaccine series completed Melena Moderate persistent asthma, uncomplicated Hypercalcemia Lumbago with sciatica, left side H/O nasal polyp GERD (gastroesophageal reflux disease) HLD (hyperlipidemia) HTN (hypertension) Family History Family History Daughter Mental health disorder Daughter Mental health disorder Father CAD (coronary artery disease) Diabetes mellitus Mother Alzheimer disease Essential hypertension Surgical History Surgical History Status post surgical removal of malignant neoplasm of skin H/O colonoscopy Hx of nasal polypectomy Hx of arthroscopy of right knee History of tonsillectomy Social History Social History Household Members: Spouse Housing: House Alcohol intake: never Patient Tobacco Use Status: Never used Tobacco Smoked in Last 30 Days: No e-Cigarette/Vaping Use: Never Used Second Hand Smoke Exposure: No Use of substances other than those prescribed or required for medical reasons: No Advance Directives: No Advance Directives Information Provided: No Do you have a plan to hurt others: No Plan Nutrition Risks: No Nutritional Risk Patient : No service: No Current occupational status: unemployed Sexual orientation: Straight/Heterosexual Gender identity: Female Cognitive needs: No Hearing needs: No Vision needs: Yes Travel History Ebola Risk: Travel/Contact With Anyone From Affected Area/s: No Has Patient Experienced Ebola Symptoms: No Meds Allergies Allergy/AdvReac Type Severity Reaction Status Date / Time peanut (PEANUT) Allergy Severe ANAPHYLAXIS Verified 12/15/24 17:23 penicillin G (Penicillin G) Allergy Intermediate RASH Verified 12/15/24 17:23 FRUIT Allergy Severe THROAT Uncoded 10/15/24 11:11 CLOSES Active Medications: Current Medications Acetaminophen (Acetaminophen 325 Mg Tablet) 650 mg PO Q6H PRN PRN Reason: Pain, Mild 1-3,fever,headache Albuterol/Ipratropium (Albuterol/Iprat 2.5/0.5mg 3 Ml Ampul.Neb) 3 ml INHALE Q4H PRN PRN Reason: Shortness of Breath/Wheezing Calcium Carbonate (Calcium Carbonate 750 Mg Tab.Chew) 750 mg PO Q4H PRN PRN Reason: Heartburn Enoxaparin Sodium (Enoxaparin Sodium 40 Mg/0.4 Ml Syringe) 40 mg SUBCUT Q24H [facility] Last Admin: 12/15/24 21:24 Dose: 40 mg Guaifenesin (Guaifenesin 200 Mg/10 Ml 10 Ml Liquid) 10 ml PO Q4H PRN PRN Reason: Cough Last Admin: 12/15/24 21:24 Dose: 10 ml Magnesium Hydroxide (Milk Of Magnesia 30 Ml Oral.Susp) 30 ml PO DAILY PRN PRN Reason: Constipation Melatonin (Melatonin 3 Mg Tablet) 6 mg PO BEDTIME PRN PRN Reason: Insomnia Ondansetron HCl (Ondansetron Hcl 4 Mg/2 Ml Vial) 4 mg IVPUSH Q8H PRN PRN Reason: Nausea and Vomiting Oseltamivir Phosphate (Oseltamivir Phosphate 75 Mg Capsule) 75 mg PO Q12H [facility] Stop: 12/20/24 09:01 Last Admin: 12/16/24 07:30 Dose: 75 mg Polyethylene Glycol (Polyethylene Glycol 3350 17 Gm Powd.Pack) 17 gm PO DAILY PRN PRN Reason: Constipation Potassium Chloride (Potassium Chloride Er 20 Meq Tab.Er.Prt) 40 meq PO DAILY [facility] Last Admin: 12/16/24 07:29 Dose: 40 meq Potassium Chloride (Potassium Chloride Er 20 Meq Tab.Er.Prt) 20 meq PO ONCE ONE Stop: 12/16/24 09:45 Senna (Sennosides 8.6 Mg Tablet) 17.2 mg PO BEDTIME [facility] Last Admin: 12/15/24 21:24 Dose: 17.2 mg Sodium Chloride (0.9 % Sodium Chloride Flush 3 Ml Syringe) 3 ml IVFLUSH QSHIFT [facility] Last Admin: 12/16/24 07:30 Dose: 3 ml Home Medications ?Medication ?Instructions ?Recorded ?Confirmed ?Last Taken ?Type fluticasone propionate 50 spray intranasal 12/07/22 Unknown History mcg/actuation nasal spray,suspension Physical Exam 2 Vital Signs: Vital Signs: Last Vital Signs Temp 97.8 F 12/16/24 05:44 Pulse 48 L 12/16/24 05:44 Resp 14 12/16/24 05:44 BP 129/72 12/16/24 05:44 Pulse Ox 96 12/16/24 05:44 O2 Del Method Room Air 12/16/24 05:44 BMI result Body Mass Index 30.0 Const: General: comfortable and no acute distress O rientation/consciousness: patient oriented x3 HEENT: Other: Unremarkable Head: Yes normal to inspection Neck: Neck: Yes normal visual inspection Chest: Chest palpation & inspection: normal inspection of the chest Resp: Auscultation: clear to auscultation bilaterally Cardio: Palpation: normal PMI Heart sounds: S1 normal heart sound present, S2 normal heart sound present, no gallops, no murmurs and no rubs GI: Palpation (GI): Soft to palpation Back/Spine/Pelvis: Other: unremarkable Skin: General skin exam: no rashes or lesions noted Neuro: General: patient oriented x3 Extrem: General: Yes normal to inspection Psych: Mental Status: mental status grossly normal Objective Labs and Meds 12/16/24 07:35 12/16/24 07:35 Lab results: Laboratory Results - last 24 hr 12/15/24 12/15/24 12/15/24 17:43 17:44 18:24 WBC 9.0 RBC 4.55 Hgb 14.0 Hct 40.5 MCV 89.0 MCH 30.8 MCHC 34.6 RDW 13.2 Plt Count 299 MPV 9.4 Immature Gran % (Auto) 0.2 Neut % (Auto) 45.3 Lymph % (Auto) 43.0 H [place] % (Auto) 10.7 Eos % (Auto) 0.4 Baso % (Auto) 0.4 Lymph # (Auto) 3.9 [place] # (Auto) 1.0 Eos # (Auto) 0.0 Baso # (Auto) 0.0 Abs Immat Gran (auto) 0.02 Absolute Neuts (auto) 4.1 Absolute Nucleated RBC 0.000 Nucleated RBC % (auto) 0.0 Smear Tech's Comments Sodium 141 Potassium 2.8 L* D Chloride 103 Carbon Dioxide 28 Anion Gap 13 BUN 22 H Creatinine 0.68 Estim Creat Clear Calc 74.8 Estimated GFR > 60 Random Glucose 91 Calcium 10.0 Magnesium 2.0 Total Bilirubin 0.4 Direct Bilirubin 0.1 AST 29 ALT 30 Alkaline Phosphatase 72 Troponin I High Sens < 2.7 Total Protein 7.8 Albumin 4.4 TSH 1.20 Influenza Type A (PCR) POSITIVE A Influenza Type B (PCR) NEGATIVE RSV RNA Qual (PCR) NEGATIVE SARS-CoV-2 RNA (RT-PCR) NEGATIVE 12/16/24 07:35 WBC 7.6 RBC 4.48 Hgb 13.8 Hct 40.4 MCV 90.2 MCH 30.8 MCHC 34.2 RDW 13.2 Plt Count 288 MPV 9.5 Immature Gran % (Auto) 0.1 Neut % (Auto) 38.9 L Lymph % (Auto) 49.6 H [place] % (Auto) 9.8 Eos % (Auto) 0.8 Baso % (Auto) 0.8 Lymph # (Auto) 3.8 [place] # (Auto) 0.7 Eos # (Auto) 0.1 Baso # (Auto) 0.1 Abs Immat Gran (auto) 0.01 Absolute Neuts (auto) 2.9 Absolute Nucleated RBC 0.000 Nucleated RBC % (auto) 0.0 Smear Tech's Comments VERIFIED Sodium 141 Potassium 3.3 Chloride 107 Carbon Dioxide 27 Anion Gap 10 L BUN 14 Creatinine 0.63 Estim Creat Clear Calc 81.8 Estimated GFR > 60 Random Glucose 106 Calcium 9.1 D Magnesium Total Bilirubin 0.5 Direct Bilirubin AST 24 ALT 26 Alkaline Phosphatase 62 Troponin I High Sens Total Protein 6.9 Albumin 3.9 TSH Influenza Type A (PCR) Influenza Type B (PCR) RSV RNA Qual (PCR) SARS-CoV-2 RNA (RT-PCR) ECG Interpretation: EKG shows sinus bradycardia at 37/Min. Currently, ventricular rates is about 60/Min on telemetry. Assessment and Plan (1) Bradycardia: Status: Acute (2) Influenza A: Status: Acute Plan EKG shows sinus bradycardia but telemetry rates are slightly higher and currently around 60/Min. On looking at previous rates, even in September, others recorded heart rate of 48/Min. Hence this might be somewhat chronic and intermittent. In the absence of any specific symptoms like presyncope, no need for any interventions. We will follow her up with an outpatient Holter and echocardiogram. High sensitivity troponin is normal. Discussed with Dr. Truong. Procedures Date of Service Date of Service: 12/16/24
[2024-12-16 10:15] VITALS: BP 116/64; PULSE 55; RESP 16; O2SAT 98
--- NOTE | 2024-12-16 10:47 | MHC.CM.PN ---
Addendum entered by Mell Oliva 12/16/24 10:54: CM was assisted by Japanese translation. Original Note: CM met with Patient and her /HCP/Rashaun at bedside, in the ED, and addressed IMM with them (Patient preferred that sign IMM); original was given to Patient and a copy will be placed on the chart. Patient lives in a house ([facility])with her and she uses a cane to assist with mobility. Home/resume said care is Patient's goal and CM has initiated and will follow for dc planning.PCP is Dr. Angelina Azul and will transport to home at dc.
--- NOTE | 2024-12-16 11:22 | PC.NURSE ---
Pt able to get up and ambulate this morning with staff members, at bedside currently. Awaiting further dispo plan at this time, call garcía within reach, Flu precautions maintained.
--- NOTE | 2024-12-16 15:43 | PHA.MEDREC ---
Addendum entered by Chavez Baugh cha 12/16/24 16:18: MED REC REVIEWED BY [facility] Original Note: Pharmacy Consult ? Medication Reconciliation Pharmacy has completed the medication reconciliation. Spoke to Patient through rn labor and delivery service to confirm med list. Patient states she is no longer taking Diclofenac sod 1% and Flonase nasal spray. Patient confirmed Xolair 150 mg [id number] next dose is 12/18/24. Patient last had her medications yesterday.
[2024-12-16 16:38] VITALS: BP 110/61; PULSE 46; RESP 18; TEMP 36.6; O2SAT 96
--- NOTE | 2024-12-16 16:40 | HO.PM.IMPN ---
Subjective Subjective Date of Service: 12/16/24 Interval History: Bradycardia, influenza a Review of Systems Patient feeling generalized weak Feel congested. Has cough and pain with cough Review of Systems: Yes all other systems are reviewed and are negative Physical Exam Exam: Exam: Appearance: Alert.? Oriented X3.? cvs: rrr, [id number]. res: air entry fair ,no rales or wheezing abd: no rebound or guarding ,nt, bs present. ext pulses present , no cyanosis . neuro: axo3 , nonfocal. Vital Signs: Vital Signs: Last Vital Signs Temp 97.8 F 12/16/24 16:38 Pulse 46 L 12/16/24 16:38 Resp 18 12/16/24 16:38 BP 110/61 12/16/24 16:38 Pulse Ox 96 12/16/24 16:38 O2 Del Method Room Air 12/16/24 16:38 BMI result Body Mass Index 30.0 Objective Data Active Medications Acetaminophen (Acetaminophen 325 Mg Tablet) 650 mg PO Q6H PRN PRN Reason: Pain, Mild 1-3,fever,headache Albuterol/Ipratropium (Albuterol/Iprat 2.5/0.5mg 3 Ml Ampul.Neb) 3 ml INHALE Q4H PRN PRN Reason: Shortness of Breath/Wheezing Calcium Carbonate (Calcium Carbonate 750 Mg Tab.Chew) 750 mg PO Q4H PRN PRN Reason: Heartburn Enoxaparin Sodium (Enoxaparin Sodium 40 Mg/0.4 Ml Syringe) 40 mg SUBCUT Q24H [facility] Last Admin: 12/15/24 21:24 Dose: 40 mg Documented By: JODIE Guaifenesin (Guaifenesin 200 Mg/10 Ml 10 Ml Liquid) 10 ml PO Q4H PRN PRN Reason: Cough Last Admin: 12/15/24 21:24 Dose: 10 ml Documented By: JODIE Magnesium Hydroxide (Milk Of Magnesia 30 Ml Oral.Susp) 30 ml PO DAILY PRN PRN Reason: Constipation Melatonin (Melatonin 3 Mg Tablet) 6 mg PO BEDTIME PRN PRN Reason: Insomnia Ondansetron HCl (Ondansetron Hcl 4 Mg/2 Ml Vial) 4 mg IVPUSH Q8H PRN PRN Reason: Nausea and Vomiting Oseltamivir Phosphate (Oseltamivir Phosphate 75 Mg Capsule) 75 mg PO Q12H [facility] Stop: 12/20/24 09:01 Last Admin: 12/16/24 07:30 Dose: 75 mg Documented By: ANKIT Polyethylene Glycol (Polyethylene Glycol 3350 17 Gm Powd.Pack) 17 gm PO DAILY PRN PRN Reason: Constipation Potassium Chloride (Potassium Chloride Er 20 Meq Tab.Er.Prt) 40 meq PO DAILY [facility] Last Admin: 12/16/24 07:29 Dose: 40 meq Documented By: ANKIT Senna (Sennosides 8.6 Mg Tablet) 17.2 mg PO BEDTIME [facility] Last Admin: 12/15/24 21:24 Dose: 17.2 mg Documented By: JODIE Sodium Chloride (0.9 % Sodium Chloride Flush 3 Ml Syringe) 3 ml IVFLUSH QSHIFT [facility] Last Admin: 12/16/24 07:30 Dose: 3 ml Documented By: ANKIT Labs 12/16/24 07:35 12/16/24 07:35 Labs: Laboratory Results - last 24 hr 12/15/24 12/15/24 12/15/24 17:43 17:44 18:24 MCV 89.0 MCH 30.8 MCHC 34.6 RDW 13.2 Plt Count 299 MPV 9.4 Immature Gran % (Auto) 0.2 Neut % (Auto) 45.3 Lymph % (Auto) 43.0 H Lynn % (Auto) 10.7 Eos % (Auto) 0.4 Baso % (Auto) 0.4 Lymph # (Auto) 3.9 Lynn # (Auto) 1.0 Eos # (Auto) 0.0 Baso # (Auto) 0.0 Abs Immat Gran (auto) 0.02 Absolute Neuts (auto) 4.1 Absolute Nucleated RBC 0.000 Nucleated RBC % (auto) 0.0 Smear Tech's Comments Anion Gap 13 Estim Creat Clear Calc 74.8 Estimated GFR > 60 Random Glucose 91 Calcium 10.0 Magnesium 2.0 Total Bilirubin 0.4 Direct Bilirubin 0.1 AST 29 ALT 30 Alkaline Phosphatase 72 Troponin I High Sens < 2.7 Total Protein 7.8 Albumin 4.4 TSH 1.20 Influenza Type A (PCR) POSITIVE A Influenza Type B (PCR) NEGATIVE RSV RNA Qual (PCR) NEGATIVE SARS-CoV-2 RNA (RT-PCR) NEGATIVE 09/21/25 07:35 MCV 90.2 MCH 30.8 MCHC 34.2 RDW 13.2 Plt Count 288 MPV 9.5 Immature Gran % (Auto) 0.1 Neut % (Auto) 38.9 L Lymph % (Auto) 49.6 H Lynn % (Auto) 9.8 Eos % (Auto) 0.8 Baso % (Auto) 0.8 Lymph # (Auto) 3.8 Lynn # (Auto) 0.7 Eos # (Auto) 0.1 Baso # (Auto) 0.1 Abs Immat Gran (auto) 0.01 Absolute Neuts (auto) 2.9 Absolute Nucleated RBC 0.000 Nucleated RBC % (auto) 0.0 Smear Tech's Comments VERIFIED Anion Gap 10 L Estim Creat Clear Calc 81.8 Estimated GFR > 60 Random Glucose 106 Calcium 9.1 D Magnesium Total Bilirubin 0.5 Direct Bilirubin AST 24 ALT 26 Alkaline Phosphatase 62 Troponin I High Sens Total Protein 6.9 Albumin 3.9 TSH Influenza Type A (PCR) Influenza Type B (PCR) RSV RNA Qual (PCR) SARS-CoV-2 RNA (RT-PCR) Assessment and Plan (1) Bradycardia: Status: Acute Plan 69-year-old female Malaysian-speaking only with past medical history hypertension, COPD/asthma, allergic rhinitis, knee replacement presents to the emergency department for noted low heart rate earlier today while checking her blood pressure via her electronic machine. Patient was also diagnosed with the flu this past Tuesday and was still symptomatic with a productive cough of yellow sputum and a scratchy throat. ED provider consulted Cardiology andcardiology felt patient could be admitted to this hospital for bradycardia and influenza A. Influenza a Tamiflu continued in the ED Contact precautions in place Supportive care, antitussives, tamiflu Encourage hydration Bradycardia with normal OK and no evidence of heart block Hypokalemia repleted and resolved. Troponin negative Echocardiogram ordered Patient is not currently on any AV sudhir blocking agents Lyme panel sent (no heart block, sent for rule out) Telemetry Cardiology evaluation noted-mild bradycardia is asymptomatic, echocardiogram in a.m. Acute Hypokalemia Repleted and resolved GERD Omeprazole ordered Hyperlipidemia Continue statin Generalized weak: Having difficulty ambulating, added PT evaluation. DVT prophylaxis: Lovenox Ongoing need for stay: Bradycardia-need tele monitoring, further cardiac cardiac workup pending, cardiology follow-up, in addition generalized weak need PT evaluation to plan disposition. Quality Stroke Does the patient have a stroke diagnosis?: No Reason for No Anti-thrombotic by Day Two: N/A - Med Ordered VTE Prior VTE?: No VTE Risk Level:: Medical - moderate - high VTE Device Contraindication: N/A - Device Ordered VTE Drug Contraindication: N/A - Med Ordered
--- NOTE | 2024-12-16 16:57 | HO.NURTONUR ---
Pt has been able to ambulate throughout unit to bathroom. minimal coughing noted throughout day, but does stop and she is able to rest. Cardiology has been at bedside, recommending outpt follow up, however pt did not want to be DC home, MD to just get ECHO done at this time. Pt has had family throughout the day at bedside, daughter has called and has been updated. Pt continues to have #22 in right hand at this time. She has been stable on RA. Takes pills whole with no issues. Monitor remains on privacy mode at this time so pt can not see her HR and have increased anxiety. /Estevan have had multiple discussions with pt about HR however pt remains anxious.
[2024-12-16] MEDS: guaiFENesin 200 MG/10 ML 10 ML LIQUID PO (17:43)
[2024-12-16] MEDS: Albuterol/Iprat 2.5/0.5MG 3 ML AMPUL.NEB INHALE (17:44)
[2024-12-17] VITALS (9 sets, daily range): BP systolic 110–120; BP diastolic 61–71; PULSE 47–63; RESP 12–18; TEMP 36.1–36.7; O2SAT 95–98; BMI 29.8
--- NOTE | 2024-12-17 00:55 | PC.NURSE ---
pt heart rate as low in the 30's, reported to Dr. Garza, no new orders, pt will be followed up out patient.
[2024-12-17] MEDS: 0.9 % Sodium Chloride Flush 3 ML SYRINGE IVFLUSH ×3 (02:48→17:40)
--- NOTE | 2024-12-17 02:50 | PC.NURSE ---
Iv flushed, pt reposition for comfort, no sign of distress, pt awaiting bed assignment.
--- NOTE | 2024-12-17 03:00 | PC.NURSE ---
Assumed care of pt at 0300, report received from JESSY Contreras. PT appears to be sleeping with eye closed, respiration even and unlabored, on monitor sinus andrea.
--- NOTE | 2024-12-17 03:05 | PC.NURSE ---
verbal report given to JESSY Ortiz
--- NOTE | 2024-12-17 06:20 | PC.NURSE ---
pt medicated as per may. Denies any pain. VSS- on monitor Sinus Rich. Bed locked in lowest position call garcía within reach. plan of care ongoing
--- NOTE | 2024-12-17 07:00 | CA_ITS ---
Transthoracic Echocardiogram Patient (Last, First, Middle): Robyn Thrasher B Gender: F Date of : 1955 Age: 69 Procedure Date: 12/17/2024 Procedure Type: Transthoracic Echocardiogram Location: ER Height: 157.48 cm Weight: 74.39 kg BSA: 1.76 m2 Heart Rate: bpm BP: 120 / 64 mmHg Suction Roller: NICO Referring MD: Sondra SUGGS Symptoms: ? MYOCARDITIS Study Quality: Adequate ECG Rhythm: Sinus Conclusions: - Normal left ventricular size and systolic function. There is mildly increased left ventricular wall thickness. The visually estimated ejection fraction is between 60-65%. - E/E prime ratio is between 8 and 15 consistent with indeterminate filling pressures. - Normal right ventricular cavity size and systolic function. Findings Left Ventricle Normal left ventricular size and systolic function. There is mildly increased left ventricular wall thickness. The visually estimated ejection fraction is between 60-65%. There is no evidence of regional wall motion abnormalities. Abnormal diastolic function is noted. Spectral Doppler is indicative of an impaired relaxation filling pattern. E/E prime ratio is between 8 and 15 consistent with indeterminate filling pressures. Right Ventricle Normal right ventricular cavity size and systolic function. Atria The left atrium is normal in size. The right atrium was not well visualized. Aortic Valve Normal aortic valve structure and function. There is no aortic valve stenosis. There is no aortic valve regurgitation. Mitral Valve The mitral valve appears normal. There is no mitral valve regurgitation. There is no mitral valve stenosis. Pulmonic Valve The pulmonic valve is likely normal. Tricuspid Valve Normal tricuspid valve structure. There is no tricuspid valve regurgitation. Normal right atrial pressure. There is no evidence of pulmonary hypertension. Great Vessels All visible segments of the aorta are normal in size. Venous The inferior vena cava is normal in size and collapses greater than 50% with inspiration. Pericardium/Pleural There is no evidence of pericardial effusion. Prior Study Comparison No prior study available for comparison. Measurements 2D Linear Measurements IVSd: 1.13 0.6-0.9/0.6-1.0 cm LVIDd: 3.33 3.9-5.3/4.2-5.9 cm LVIDd Index: 1.89 2.4-3.2/2.2-3.1 cm/m2 LVIDs: 2.26 2.0-3.6 cm LVPWd: 1.11 0.7-1.1 cm Ao Root: 2.80 2.1-3.5 cm LA Diam: 3.30 2.7-3.8/3.0-4.0 cm LAIDs Index: 1.88 1.5-2.3 cm/m2 LV Mass: 141.32 67-162/88-224 g LV Mass Index: 80.29 43-95/49-115 g/m2 LVOT Diam: 2.00 3.0+(-)1.3 cm 2D Systolic Function EF 4C: 65.20 >55% EF 2C: 57.40 >55% EF BiP: 62.70 >55% Mitral Valve MV Pk E: 0.71 MV PK A: 0.93 MV Decel Time: 262.00 E/A: 0.80 E'Lateral: 10.00 E'Medial: 5.66 E/E' Med: 12.50 E/E' Lat: 7.10 PHT: 77.00 MVA PHT: 2.86 Decel Juncos: 2.71 Aortic Valve AoV Pk Sav: 1.49 AoV Mn Sav: 0.99 AoV VTI: 0.38 AoV Pk Grad: 9.00 Aov Mn Grad: 5.00 YADIRA Cont.VTI: 2.19 LVOT LVOT Pk Sav: 1.03 LVOT Mn Sav: 0.67 LVOT VTI: 0.26 LVOT Pk Grad: 4.00 LVOT Mn Grad: 2.00 LVOT Diam: 2.00 LVOT Area: 3.14 Diastolic Function MV Pk E: 0.71 MV Pk A: 0.93 E/A: 0.80 E'Medial: 5.66 E/E' Med: 12.50 E' Laterial: 10.00 E/E' Lat: 7.10 Right Ventricle TAPSE (mm): 25.00 TVS' Sav: 10.00 Tricuspid Valve TR Pk Sav: 2.25 TR Pk Grad: 20.00 RA Press: 3.00 RVSP: 23.00 Great Vessels Aorta Ao Root-2D: 2.80 2.0-3.7 cm Ao Asc: 3.30 2.1-3.4 cm Pulmonary Valve PV Pk Sav: 0.94 Peak PV Grad: 4.00 Updated in Other Vendor System with Status of Final Kilo Michaels MD electronically signed on 12/17/2024 1:51:45 PM with status of Final
[2024-12-17] MEDS: guaiFENesin 200 MG/10 ML 10 ML LIQUID PO (09:24)
[2024-12-17] MEDS: Potassium Chloride ER 20 MEQ TAB.ER.PRT 40 MEQ PO (09:29)
[2024-12-17] MEDS: Calcium + Vitamin D 250 MG TABLET 500 MG PO (09:29)
[2024-12-17] MEDS: Throat Lozenge, Medicated LOZENGE 1 LOZENGE MUCOUS MEM (09:33)
--- NOTE | 2024-12-17 09:36 | PM.PNCARD ---
Subjective Subjective Date of Service: 12/17/24 Interval history: Seen and examined at bedside. Coughing. Bradycardia has resolved. Physical Exam Vital Signs: Last Vital Signs Temp 98.1 F 12/17/24 08:33 Pulse 63 12/17/24 08:33 Resp 17 12/17/24 08:33 BP 110/64 12/17/24 09:30 Pulse Ox 98 12/17/24 08:33 O2 Del Method Room Air 12/17/24 08:33 BMI result Body Mass Index 29.8 GENERAL APPEARANCE: in no acute distress, pleasant. NECK: no carotid bruit, no jugular venous distention. SKIN: no suspicious lesions, warm and dry. HEART: no murmurs, regular rate and rhythm. LUNGS: Mild expiratory wheezes. ABDOMEN: soft, nontender. EXTREMITIES: no edema. PERIPHERAL PULSES: equal. NEUROLOGIC: No gross deficits, AAO X 3 Objective Labs and Meds 12/16/24 07:35 12/16/24 07:35 Progress Note: A&P Assessment and plan (1) Bradycardia: Status: Acute Plan Transient sinus bradycardia and 69 year female with influenza a infection. Bradycardia has been reported with influenza and could be related to direct viral effects versus cytokine mediated mechanisms. Also oseltamivir can cause bradycardia. In any case this was transient and has resolved at this point. No further interventions are required for this. She should get conservative treatment for influenza as before. Thank you for allowing me to participate in the care of your patient. Please feel free to contact me if you have any questions. Time Spent With Patient Time: Total time managing care of this patient today ____ minutes. Progress Note: Quality Stroke Does the patient have a stroke diagnosis?: No Reason for No Anti-thrombotic by Day Two: N/A - Med Ordered Procedures Date of Service Date of Service: 12/17/24
--- NOTE | 2024-12-17 16:04 | MHC.CM.PN ---
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 to go to [facility]. Pt. said she does not want to go to [facility]. She has home care from [facility], referral sent to them for SN and PT. Pt said her will take her home, and her dtr in law helps her ([employer]). She said that she is not walking well now because of feeling sick, but when she is well, she can walk with a cane.
--- NOTE | 2024-12-17 16:45 | PM.DS ---
DS: Providers Provider Date of Service: 12/17/24 Date of admission: 12/15/24 19:53 Date of discharge: 12/17/24 Primary care physician: Angelina Limon MD Consults: 12/15/24 20:38 Consult to Cardiology Routine Consulting Provider: [facility] Reason for consultation: Bradycardia, ? Myocarditis secondary to influenza a Attending physician on discharge: Harjinder Truong Discharging clinician: Harjinder Truong DS: Diagnosis Discharge Diagnosis (1) Bradycardia: Status: Acute DS: Summary Hospital Course Hospital Course: HPI: 69-year-old female Slovenian-speaking only with past medical history hypertension, COPD/asthma, allergic rhinitis, knee replacement presents to the emergency department for noted low heart rate earlier today while checking her blood pressure via her electronic machine. Patient was also diagnosed with the flu this past Tuesday and was still symptomatic with a productive cough of yellow sputum and a scratchy throat. Patient has been started on Tamiflu and that is continued since Tuesday. Patient denies any fever, chills, nausea or vomiting. Patient is not having any chest pain or shortness of breath at rest. Workup in the ED included electrolytes and potassium noted to be 2.8. Patient's potassium has been repleted with 10 mEq KCL x4 and oral potassium. Patient's TSH was normal. EKG notes a rate of 46 with a normal OR and no evidence of heart block. QTC also normal. Magnesium 2.0. No murmur on exam. Cardiology was consulted by the ED provider and Cardiology felt it was appropriate to admit patient to this hospital. There was some concern for possible myocarditis secondary to influenza. Patient currently stable with ongoing normal hemodynamics other than heart rate. Patient has not required inotrope support in the ED. echo is pending. Patient did again test positive for influenza a today. Hospital course: 69-year-old female Slovenian-speaking only with past medical history hypertension, COPD/asthma, allergic rhinitis, knee replacement presents to the emergency department for noted low heart rate earlier today while checking her blood pressure via her electronic machine. Patient was also diagnosed with the flu this past Tuesday and was still symptomatic with a productive cough of yellow sputum and a scratchy throat. ED provider consulted Cardiology andcardiology felt patient could be admitted to this hospital for bradycardia and influenza A: Chest x-ray negative, serology positive for influenza a: Started on Tamiflu, cough medication, antibiotics : Seem improved. Tick-borne disease panel pending. Bradycardia: Seems to be improving significantly, seen by Cardiology thought to be related to underlying viral infection/cytokines. Echo:Normal left ventricular size and systolic function. There is mildly increased left ventricular wall thickness. The visually estimated ejection fraction is between 60-65%. E/E prime ratio is between 8 and 15 consistent with indeterminate filling pressures.Normal right ventricular cavity size and systolic function. Patient is asymptomatic. No further acute intervention at present. Acute hypokalemia: p.o. intake improving. Repleted and resolved. plan: Complete doxycycline, Tamiflu-as prescribed. Prednisone 20 mg b.i.d. for 4 days Continue cough medications. Follow-up tick panel outpatient with PCP. Patient refused rehab, going home with VNA/PT Above management discussed with the patient in detail length she understand and in agreement with the above plan, time spent 45 minute, services tech was used for help. All questions answered. Time Attestation Total time managing care of this patient today: 45 mintues. Discharge Coordination Time (in mins): 45 min Quality: Safe Use of Opioids Does Pt have an Active Cancer Diagnosis on the Problem List?: No Quality: Stroke Does the patient have a stroke diagnosis?: No Physical Exam Exam: Exam: Appearance: Alert.? Oriented X3.? cvs: rrr, [id number]. res: air entry fair ,no rales or wheezing abd: no rebound or guarding ,nt, bs present. ext pulses present , no cyanosis . neuro: axo3 , nonfocal. Vital Signs: Vital Signs: Last Vital Signs Temp 97.9 F 12/17/24 16:23 Pulse 62 12/17/24 16:23 Resp 12 12/17/24 16:23 BP 120/71 12/17/24 16:23 Pulse Ox 96 12/17/24 16:23 O2 Del Method Room Air 12/17/24 16:23 BMI result Body Mass Index 29.8 DS: Data Imaging Chest x-ray: My impression: cxr: IMPRESSION: 1. No acute findings. echo:Conclusions: - Normal left ventricular size and systolic function. There is mildly increased left ventricular wall thickness. The visually estimated ejection fraction is between 60-65%. - E/E prime ratio is between 8 and 15 consistent with indeterminate filling pressures. - Normal right ventricular cavity size and systolic function. Findings Left Ventricle Normal left ventricular size and systolic function. There is mildly increased left ventricular wall thickness. The visually estimated ejection fraction is between 60-65%. There is no evidence of regional wall motion abnormalities. Abnormal diastolic function is noted. Spectral Doppler is indicative of an impaired relaxation filling pattern. E/E prime ratio is between 8 and 15 consistent with indeterminate filling pressures. Right Ventricle Normal right ventricular cavity size and systolic function. Atria The left atrium is normal in size. The right atrium was not well visualized. Aortic Valve Normal aortic valve structure and function. There is no aortic valve stenosis. There is no aortic valve regurgitation. Mitral Valve The mitral valve appears normal. There is no mitral valve regurgitation. There is no mitral valve stenosis. Pulmonic Valve The pulmonic valve is likely normal. Tricuspid Valve Normal tricuspid valve structure. There is no tricuspid valve regurgitation. Normal right atrial pressure. There is no evidence of pulmonary hypertension. Great Vessels All visible segments of the aorta are normal in size. Venous The inferior vena cava is normal in size and collapses greater than 50% with inspiration. Pericardium/Pleural There is no evidence of pericardial effusion. Prior Study Comparison No prior study available for comparison. Discharge Plan Discharge Anticipated Discharge Date/Time: 12/17/24 15:26 Patient Disposition: er SNF Discharge Diagnosis: Generalized weakness, influenza a, bradycardia Referrals: Angelina Raman MD [Primary Care Provider, Internal Medicine] - 1 Week Discharge Medications: New sennosides [Senna Lax] 8.6 mg Tablet 17.2 mg PO BEDTIME PRN (Reason: constipation) Qty: 30 0RF polyethylene glycol 3350 17 gram Powder In Packet 17 g PO DAILY PRN (Reason: Constipation) Qty: 30 0RF Sore Throat (benzocaine-menth) 15-3.6 mg Lozenge 1 ramon mucous membrane Q2H PRN (Reason: Sore Throat) Qty: 20 0RF guaifenesin 100 mg/5 mL Liquid 100 mg PO Q4H PRN (Reason: Cough) Qty: 100 0RF doxycycline monohydrate 100 mg Capsule 100 mg PO Q12H Qty: 14 0RF Continued (DME) CPAP Machine/Device Device See Rx Instructions .Route Qty: 1 0RF Rx Instructions: AutoCPAP 6-20 cmH2O omalizumab 150 mg recon soln 150 mg subcut Q4W Qty: 1 12RF albuterol sulfate 2.5 mg /3 mL (0.083 %) solution for nebulization 2.5 mg inhalation QID PRN (Reason: shortness of breath or wheezing) 30 Days Qty: 75 1RF calcium carbonate-vitamin D3 [Oyster Shell Calcium-Vit D3] 500 mg-10 mcg (400 unit) tablet 1 tab PO BID 90 Days Qty: 180 0RF amlodipine 5 mg tablet 5 mg PO DAILY 90 Days Qty: 90 1RF cholecalciferol (vitamin D3) 25 mcg (1,000 unit) capsule 25 mcg PO DAILY 90 Days Qty: 90 1RF losartan 100 mg tablet 100 mg PO DAILY Qty: 30 4RF simvastatin 20 mg tablet 20 mg PO BEDTIME Qty: 30 4RF hydrochlorothiazide 25 mg tablet 25 mg PO DAILY 90 Days Qty: 90 0RF fluticasone propion-salmeterol [Advair HFA] 115-21 mcg/actuation HFA aerosol inhaler 2 puff inhalation Q12H Qty: 12 0RF cetirizine [Allergy Relief (cetirizine)] 10 mg tablet 10 mg PO BID PRN (Reason: allergy symptoms) 90 Days Qty: 90 3RF betamethasone dipropionate 0.05 % ointment 1 appl topical DAILY PRN (Reason: skin irritation) 30 Days Qty: 45 1RF oseltamivir 75 mg capsule 75 mg PO BID pantoprazole 40 mg tablet,delayed release (DR/EC) 40 mg PO DAILY@0630 prednisone 20 mg tablet 20 mg PO BID Qty: 8 0RF Discharge Orders: Discharge Order (Routine); Ordered 12/17/24 Ordered By: Harjinder Truong Diet: Advance to usual diet Activity on Discharge: As tolerated Stand Alone Forms: Patient Portal Discharge page Print Language: Slovenian Care Plan Goals: Complete doxycycline, Tamiflu-as prescribed. Prednisone 20 mg b.i.d. for 4 days Continue cough medications. Follow-up tick panel outpatient with PCP. Patient refused rehab, going home with VNA/PT Health Concerns: As above. Plan of Treatment: As above. Assessment: As above.
--- NOTE | 2024-12-17 16:46 | W.MHC.F2F ---
Service Date Service Date: 12/17/24 Encounter Date of encounter: 12/17/24 Encounter: Influenza a, bradycardia, generalized weakness Reasons for Services Signs and symptoms assessed: New signs of fever or chills or cough worsening Reason for shelter: CV/CP assess and/or care, medication management, medication treatment and teach disease management Reason for physical therapy: home safety and mobility, therapeutic exercises, restore joint function, gait/transfer training, assess need for DME, ADL training, energy conservation and other MD Overseeing Care: Angelina Limon Homebound: Leaving the home is medically contraindicated at this time without the asist of a device and/or another person due th the listed conditions above and below. Reason homebound: weakness related to hospital stay Homebound supporting statement: Patient is generalised weak post hospitlisation and need help with going to appointments and labs draws as well as PT. Certification: Based on the above findings, I certify that this patient is confined to the home and needs intermittent shelter care, physical therapy and/or speech therapy, or continues to need occupational therapy. The patient is under my care, and I have initiated the establishment of the plan of care. The patient will be followed by a physician who will periodically review the plan of care. Time Spent With Patient Time: Total time managing care of this patient today ____ minutes.
[2024-12-17 22:18] LABS: A. Phagocytphilium DNA,RT-PCR NOT DETECTED (NOT DETECTED); Babesia Microti DNA, RT-PCR NOT DETECTED (NOT DETECTED); Borrelia Miyamotoi,DNA RT-PCR NOT DETECTED (NOT DETECTED); E.Chaffeensis DNA RT-PCR NOT DETECTED (NOT DETECTED); Lyme(Borrelia ssp)DNA RT-PCR NOT DETECTED (NOT DETECTED)
== END 2024-12-17 17:41 | disposition skilled nursing facility (03) | DRG 195 ==
LOC: HO.ED 17:37 → HO.EDOVER 19:58
PROVIDERS: Nurse Practitioner Family; Physician Assistant Medical; Admitting Provider Internal Medicine; Emergency Provider Emergency Medicine Emergency Medical Services; PCP Internal Medicine; Visit Provider Internal Medicine
DX: J10.1 Influenza due to other identified influenza virus with other respiratory manifestations (principal); J44.9 Chronic obstructive pulmonary disease, unspecified; J45.40 Moderate persistent asthma, uncomplicated; R00.1 Bradycardia, unspecified; E87.6 Hypokalemia; K21.9 Gastro-esophageal reflux disease without esophagitis; E78.5 Hyperlipidemia, unspecified; Z20.822 Contact with and (suspected) exposure to COVID-19; Z79.899 Other long term (current) drug therapy
CPT/HCPCS: 36415; 71046; 80048; 80053; 80076; 83735; 84443; 84484; 85025; 87468; 87469; 87478; 87484; 87637; 87798; 93005; 93306; 97162; 99285; J1650; J3480; Q9957

== ENCOUNTER → 2024-12-15 17:25 | Outpatient (BNV) | payer OTHER, SELFPAY | PROVIDERS: Emergency Provider Emergency Medicine Emergency Medical Services; PCP Internal Medicine; Visit Provider Radiology Diagnostic Radiology | DX: R05.9 Cough, unspecified (principal) | CPT/HCPCS: 71046 ==

== ENCOUNTER 2024-12-15 19:53 | Outpatient (BNV) | payer OTHER, SELFPAY | END 2024-12-17 07:00 | PROVIDERS: Admitting Provider Internal Medicine; Emergency Provider Emergency Medicine Emergency Medical Services; PCP Internal Medicine; Visit Provider Internal Medicine Cardiovascular Disease | DX: I51.89 Other ill-defined heart diseases (principal) | CPT/HCPCS: 93306 ==

== ENCOUNTER → 2024-12-15 19:53 | Outpatient (BNV) | payer OTHER, SELFPAY | PROVIDERS: Admitting Provider Internal Medicine; Emergency Provider Emergency Medicine Emergency Medical Services; PCP Internal Medicine; Visit Provider Nurse Practitioner Family | DX: R00.1 Bradycardia, unspecified (principal) | CPT/HCPCS: 99223; 99231; 99239; G0180 ==

== ENCOUNTER → 2024-12-15 19:53 | Outpatient (BNV) | payer OTHER, SELFPAY | PROVIDERS: Admitting Provider Internal Medicine; Emergency Provider Emergency Medicine Emergency Medical Services; PCP Internal Medicine; Visit Provider Internal Medicine | DX: R00.1 Bradycardia, unspecified (principal) | CPT/HCPCS: 93010; 99223; 99232 ==

== ENCOUNTER 2024-12-28 11:00 | Outpatient (AMB) | payer OTHER, SELFPAY ==
--- NOTE | 2024-12-28 11:02 | MHC.PC.OV ---
Vital Signs 12/28/24 11:03 Height 5 ft 2 in Weight 159 lb 8 oz BMI 29.2 BP 100/64 Blood Pressure Location Lt brachial Position Sitting Respiration 18 Pulse 57 Pulse Source Pulse Oximeter Temp 96.8 F Temp Source Temporal Artery Scan Pulse Oximetry (%) 97 Oxygen Delivery Method Room Air Intake Visit Reasons: [facility] 12/17 Low BP/ Flu+ Credit Collections Clerk Required: Yes Credit Collections Clerk Language: Micronesian Accompanied by: Self / Same As Patient Allergies peanut (PEANUT) Allergy (Severe, Verified 12/28/24 11:03) ANAPHYLAXIS penicillin G (Penicillin G) Allergy (Intermediate, Verified 12/28/24 11:03) RASH FRUIT Allergy (Severe, Uncoded 10/15/24 11:11) THROAT CLOSES Tobacco use date assessed: 12/28/24 Fall risk assessment: No Falls in past year Last assessed Fall Risk: 12/28/24 Dental Screening Dental Screen Date: 12/28/24 Did you have a dental visit in the last 12 months?: Yes Did you have a dental problem in the last 6 months where you did not have access to dental care?: No Was dental information given to patient?: Patient has dentist HPI HPI Comments History of Present Illness Details 69 y/o Female patient who presents to the clinic today for HDF. PMHx significant for hypertension, COPD/asthma, allergic rhinitis, and knee replacement. Pt was admitted at [facility] on 12/15 - 12/17 for an evaluation and treatment of Bradycardia associated with Influenza infection. Echo: Normal left ventricular size and systolic function. There is mildly increased left ventricular wall thickness. The visually estimated ejection fraction is between 60-65%. Chest x-ray negative, serology positive for influenza. She was Started on Tamiflu, cough medication, and Antibiotics. Today reports still coughing and body aches. Denies fevers, chills, nausea or vomiting. [facility] Medical History Asthma Skin cancer COVID-19 vaccine series completed Melena Moderate persistent asthma, uncomplicated Hypercalcemia Lumbago with sciatica, left side H/O nasal polyp GERD (gastroesophageal reflux disease) HLD (hyperlipidemia) HTN (hypertension) Surgical History Status post surgical removal of malignant neoplasm of skin H/O colonoscopy Hx of nasal polypectomy Hx of arthroscopy of right knee History of tonsillectomy Family History Daughter Mental health disorder Daughter Mental health disorder Father CAD (coronary artery disease) Diabetes mellitus Mother Alzheimer disease Essential hypertension Social History Household Members: Spouse Housing: House Alcohol intake: never Patient Tobacco Use Status: Never used Tobacco e-Cigarette/Vaping Use: Never Used Second Hand Smoke Exposure: No service: No Current occupational status: unemployed Sexual orientation: Straight/Heterosexual Gender identity: Female Cognitive needs: No Hearing needs: No Vision needs: Yes Questionnaire Thrive Questionnaire Date Thrive assessed: 12/16/24 MARÍA-7 AMB Questionnaire MARÍA-7 Date MARÍA - 7 assessed: 10/15/24 Source: Developed by Drs. Juan José Diaz, La Randle, Mio Ling and colleagues, with an educational eloisa from [employer]. Review of Systems Const All systems reviewed & are unremarkable except as noted in HPI and below Physical exam (Primary Care) Vital Signs: Last Vital Signs Temp 96.8 F 12/28/24 11:03 Pulse 57 12/28/24 11:03 Resp 18 12/28/24 11:03 BP 100/64 12/28/24 11:03 Pulse Ox 97 12/28/24 11:03 Oxygen Delivery Method Room Air 12/28/24 11:03 BMI result Body Mass Index 29.2 Tobacco/Smoking Status: Tobacco use Status Tobacco use date assessed 12/28/24 12/28/24 11:13 Patient Tobacco Use Status Never used Tobacco 12/28/24 11:13 e-Cigarette/Vaping Use Never Used 12/28/24 11:13 Thrive Assessment: Date of Thrive Assessment Date Thrive assessed 12/16/24 12/28/24 11:13 Const General: no acute distress Nutritional Appearance: overweight Orientation/consciousness: patient oriented x3 Resp Effort & Inspection: normal respiratory effort and able to speak in complete sentences Auscultation: clear to auscultation bilaterally, no crackles, no rales, no rhonchi and no wheezes Cardio Heart sounds: S1 normal heart sound present and S2 normal heart sound present Neuro General: patient oriented x3, gait normal and moves all extremities Psych Speech and movement: Normal speech and movement present Coding Level of Care Code Est Pt Level 4 (73738) Diagnoses Bradycardia R00.1 Influenza A J10.1 Time Spent (min) 20 Assessment & Plan Assessment & Plan (1) Bradycardia: Code(s): R00.1 - Bradycardia, unspecified Category: Medical Plan: Stable. Will continue to monitor. (2) Influenza A: Code(s): J10.1 - Influenza due to other identified influenza virus with other respiratory manifestations Category: Medical Plan: Still Taking Tamiflu and Doxy Advised to take OTC cough remedies. Acetaminophen for pain relief. Rest and hydrate well with warm fluids.
[2024-12-28 11:03] VITALS: BP 100/64; PULSE 57; RESP 18; TEMP 36; O2SAT 97; BMI 29.2
--- OUTSIDE RECORDS SUMMARY | 2024-12-28 12:19 | XMS_ITS | Clinical Summary ---
Author Organization [address] [place] [address] [place] [id number] Phone Care Team Providers Care Supervisor Publications Name Role Phone Angelina Limon MD Primary Care Provider [phone] Surgical History Surgery Date Site/Laterality Comments OTHER SURGICAL HISTORY Bilateral PROCEDURE: [place] EXCISION NASAL POLYP SIMPLE; COMMENT: 2014 KNEE ARTHROSCOPY W/ DEBRIDEMENT Right PROCEDURE: [place] ARTHRS KNEE DEBRIDEMENT/SHAVING ARTCLR CRTLG TONSILLECTOMY N/A PROCEDURE: HISTORICAL TONSILLECTOMY Medical History Medical History Date Comments HTN (hypertension) DX:HTN (hyper tension) GERD (gastroesophageal reflux disease) DX:GERD (gastroesophageal reflux disease) Osteoarthritis 08/12/2020 DX:Osteoarthriti s Lumbago with sciatica, right side 08/12/2020 DX:Lumbago with sciatica, right side Hyperlipidemia 08/08/2020 DX:Hyperlipidemi a Lumbosacral pain, chronic 08/12/2020 DX:Lum bosacral pain, chronic PVD (peripheral vascular dis ease) ([facility] V24) 08/12/2020 DX:PVD (peripheral vascular disease) ([facility]) Lower extremity pain, bilateral 08/12/2020 DX:Lower [...] Last Done Comments Breast Cancer Screening 1955 Colorectal Cancer Screening: Colonoscopy 1955 Zoster Vaccines (1 of 2) 2007 09/11/2001 Pneumococcal Vaccine: 50+ Years (2 of 2 - PCV) 09/03/2016 09/04/2015 RSV Immunization Adult Patients (1 - Risk 60-74 years 1-dose series) 2017 DTaP,Tdap,and Td Vaccines (3 - Td or Tdap) 12/30/2021 12/31/2011, 09/15/2001 Cholesterol Screening (Lipid Panel) 02/27/2022 Falls Risk Assessment 02/27/2022 Hepatitis C Screening 02/27/2022 Medicare Annual Wellness Visit 02/27/2022 Osteoporosis Screening (Bone Density Screening) 02/27/2022 Social Influencers of Health Screening 02/27/2022 Hypertension/CHF/CAD Annual BMP Blood Test 03/12/2022 Depression Screening 03/28/2024 COVID-19 Vaccine ( - 2025-26 season) 2024 04/16/2021, 07/11/2020 Influenza [...] ID:[id number] Group ID:SCO Type:Not on file Address: [facility] [address] [id number] Care Teams Supervisor Publications Relationship Specialty Start Date End Date Angelina Limon MD 2 [facility] , [address] Physician Associ D/B/A: [facility] AGATHA Abraham PCP - General 08/14/23
== END 2024-12-28 11:42 | disposition home or self-care (01) ==
LOC: HO.HMCH 11:01
PROVIDERS: PCP Internal Medicine; Visit Provider Nurse Practitioner Family
DX: R00.1 Bradycardia, unspecified (principal); J10.1 Influenza due to other identified influenza virus with other respiratory manifestations

== ENCOUNTER → 2024-12-28 11:00 | Outpatient (BNVA) | payer OTHER, SELFPAY | PROVIDERS: PCP Internal Medicine; Visit Provider Nurse Practitioner Family | DX: I10 Essential (primary) hypertension (principal); J44.9 Chronic obstructive pulmonary disease, unspecified; J30.9 Allergic rhinitis, unspecified; R00.1 Bradycardia, unspecified; J10.1 Influenza due to other identified influenza virus with other respiratory manifestations | CPT/HCPCS: 99212 ==

== ENCOUNTER 2025-01-05 00:18 | Emergency (ER) | payer OTHER, SELFPAY ==
--- NOTE | 2025-01-05 | ECG_ITS ---
Test Reason : BRADYCARDIA Blood Pressure : */* mmHG Vent. Rate : 62 BPM Atrial Rate : 62 BPM P-R Int : 208 ms QRS Dur : 96 ms QT Int : 436 ms P-R-T Axes : 51 28 10 degrees QTcB Int : 442 ms Normal sinus rhythm Incomplete right bundle branch block ST & T wave abnormality, consider anterior ischemia Abnormal ECG When compared with ECG of 15-Dec-2024 17:31, Vent. rate has increased by 25 bpm T wave inversion now evident in Anterior leads Referred By: Generic ED Physician Electronically Signed By: MIKKI SYKES MD
--- NOTE | ~2025-01-05 | CT_ITS ---
CLINICAL HISTORY: headache CT head without contrast Comparison: None provided Findings: No intra-axial mass, midline shift, hydrocephalus, or acute hemorrhage. No significant atrophy-like change or white matter disease. There is no sinus or mastoid fluid. The orbits are unremarkable. No skull fracture. IMPRESSION: 1. No acute intracranial findings. This document has been electronically signed by: Zander Sutton MD on 01/05/2025 04:02:44
[2025-01-05 00:20] VITALS: BP 142/69; PULSE 62; RESP 18; TEMP 36.7; O2SAT 96; BMI 28.3
[2025-01-05 00:41] LABS: Hematocrit 42.3 % (37.0-47.0); Hemoglobin 14.6 g/dl (12.0-16.0); Imm Gran Abs Auto 0.02 X10*3/uL (0.00-0.03); Imm Gran Pct Auto 0.2 % (0.0-0.4); Lymphocytes Absolute Auto 3.0 X10*3/uL (1.2-4.9); MANUAL DIFF FLAG NO; Mean Corpuscular HGB Conc 34.5 g/dl (31.0-35.0); Mean Corpuscular Hemoglobin 30.6 pg (27.0-33.0); Mean Corpuscular Volume 88.7 fL (80.0-98.0); NRBC Abs Auto 0.000 X10*3/uL (0.0-0.012); NRBC Pct Auto 0.0 /100WBC (0.0-0.2); Platelet Count 315 X10*3/uL (160-400); Red Blood Count 4.77 X10*6/uL (4.20-5.50); White Blood Count 8.2 X10*3/uL (4.8-10.8)
--- OUTSIDE RECORDS SUMMARY | 2025-01-05 00:41 | XMS_ITS | Clinical Summary ---
Author Organization [address] [place] [address] [place] [id number] Phone Care Team Providers Care Stator Tester Name Role Phone Angelina Limon MD Primary Care Provider [phone] Surgical History Surgery Date Site/Laterality Comments OTHER SURGICAL HISTORY Bilateral PROCEDURE: [place] EXCISION NASAL POLYP SIMPLE; COMMENT: 2014 KNEE ARTHROSCOPY W/ DEBRIDEMENT Right PROCEDURE: [place] ARTHRS KNEE DEBRIDEMENT/SHAVING ARTCLR CRTLG TONSILLECTOMY N/A PROCEDURE: HISTORICAL TONSILLECTOMY Medical History Medical History Date Comments HTN (hypertension) DX:HTN (hyper tension) GERD (gastroesophageal reflux disease) DX:GERD (gastroesophageal reflux disease) Osteoarthritis 08/12/2020 DX:Osteoarthriti s Lumbago with sciatica, right side 08/12/2020 DX:Lumbago with sciatica, right side Hyperlipidemia 08/08/2020 DX:Hyperlipidemi a Lumbosacral pain, chronic 08/12/2020 DX:Lum bosacral pain, chronic PVD (peripheral vascular dis ease) ([facility] V24) 08/12/2020 DX:PVD (peripheral vascular disease) ([facility]) Lower extremity pain, bilateral 08/12/2020 [...] ID:[id number] Group ID:SCO Type:Not on file Address: [facility] [address] [id number] Care Teams Stator Tester Relationship Specialty Start Date End Date Angelina Limon MD 2 [facility] , [address] Physician Associ D/B/A: [facility] AGATHA Abraham PCP - General 08/14/23
--- NOTE | 2025-01-05 00:46 | ED_ITS ---
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 The patient reports that she woke up and checked her blood pressure and it was approximately 160/90. She reports her heart rate was 47. She had a headache this afternoon that was mild pain Her headache resolved with Tylenol but then returned She did not have any chest pain, shortness of breath. She reports some generalized abdominal discomfort with diarrhea that was described as nonbloody. The patient reports that she had palpitations 2 days ago but no other chest pain, shortness of breath, palpitations. The patient was admitted here on 12/15/24 for bradycardia She was seen by Cardiology, had an echocardiogram that showed no wall motion abnormalities and an EF of 60-65%. She is due to see Cardiology again for a Holter monitor. The patient is on losartan, amlodipine, hydrochlorothiazide for blood pressure control and there were no recommendations to change any of these medications Related Data Home Medications ?Medication ?Instructions ?Recorded ?Confirmed oseltamivir 75 mg capsule 75 mg PO BID 12/16/24 pantoprazole 40 mg tablet,delayed 40 mg PO DAILY@0630 12/16/24 12/16/24 release Previous Rx's ?Medication ?Instructions ?Recorded CPAP (CPAP Machine/Device) #1 ea 08/11/22 omalizumab 150 mg subcutaneous 150 mg subcut Q4W #1 ea 07/01/23 solution albuterol sulfate 2.5 mg/3 mL 2.5 mg (3 mL) inhalation QID PRN 05/23/24 (0.083 %) solution for nebulization shortness of breat h or wheezing 30 days #75 mL calcium 500 mg (as 1 tab PO BID 90 days #180 ta bs 08/02/24 carbonate)-vitamin D3 10 mcg (400 unit) tablet (Oyster Shell Calcium-Vitamin D3) amlodipine 5 mg tablet 5 mg PO DAILY 90 days #90 ta bs 09/08/24 cholecalciferol (vitamin D3) 25 25 mcg PO DAILY 90 day s #90 caps 09/12/24 mcg (1,000 unit) capsule losartan 100 mg tablet 100 mg PO DAILY #30 tabs 10/19 simvastatin 20 mg tablet 20 mg PO BEDTIME #30 tabs hydrochlorothiazide 25 mg tablet 25 mg PO DAILY 90 day s #90 tabs 10/30/24 cetirizine 10 mg tablet (Allergy 10 mg PO BID PRN nikita rgy symptoms 12/08/24 Relief (cetirizine)) 90 days #90 tabs betamethasone dipropionate 0.05 % 1 appl topical DAILY PRN skin 12/13/24 topical ointment irritation 30 days #45 grams guaifenesin 100 mg/5 mL oral liquid 100 mg (5 mL) PO Q 4H PRN Cough 12/17/24 #100 mL Advair HFA 115 mcg-21 2 puff inhalation Q12H #12 g jacki 12/18/24 mcg/actuation aerosol inhaler (fluticasone propion-salmeterol) acetaminophen 500 mg capsule 1,000 mg (2 x 500 mg) PO Q8H PRN 01/05/25 fever or pain #14 caps ibuprofen 400 mg tablet 400 mg PO Q6H PRN pain #10 t abs 01/05/25 prochlorperazine maleate 10 mg 5 mg (1/2 x 10 mg) PO Q 6H PRN 01/05/25 tablet (Compazine) headache #10 tabs Allergies Allergy/AdvReac Type Severity Reaction Status Date / Time peanut (PEANUT) Allergy Severe ANAPHYLAXIS Verified 01/05/25 00:23 penicillin G (Penicillin G) Allergy Intermediate RASH Verified 01/05/25 00:23 FRUIT Allergy Severe THROAT Uncoded 10/15/24 11:11 CLOSES Review of Systems 2 Constitutional: Constitutional: Denies body ache(s), Denies chills, Denies fever(s) and Reports headache(s) Eyes: Eyes: Denies blurry vision ENT: Denies vertigo, Denies dizziness and Reports headache(s) Cardiovascular: Cardiovascular: Denies chest pain, Denies chest pain at rest, Reports rapid heart rate (On 01/04/2025), Reports palpitations, Denies dyspnea and Denies dyspnea on exertion Respiratory: Respiratory: Denies cough, Denies dyspnea and Denies dyspnea on exertion Gastrointestinal: Gastrointestinal: Denies abdominal pain, Denies nausea and Denies vomiting Musculoskeletal: Musculoskeletal: Denies back pain Integumentary/Breasts: Skin/Breast: Denies rash Neurologic: Denies vertigo, Denies dizziness and Reports headache(s) Psychiatric: Psychiatric: Denies anxiety Endocrine: Endocrine: Reports palpitations PMFSH Past Medical History Medical History Asthma Skin cancer COVID-19 vaccine series completed Melena Moderate persistent asthma, uncomplicated Hypercalcemia Lumbago with sciatica, left side H/O nasal polyp GERD (gastroesophageal reflux disease) HLD (hyperlipidemia) HTN (hypertension) Surgical History Status post surgical removal of malignant neoplasm of skin H/O colonoscopy Hx of nasal polypectomy Hx of arthroscopy of right knee History of tonsillectomy Family History Family History Daughter Mental health disorder Daughter Mental health disorder Father CAD (coronary artery disease) Diabetes mellitus Mother Alzheimer disease Essential hypertension Social History Social History Household Members: Spouse Housing: House Alcohol intake: never Patient Tobacco Use Status: Never used Tobacco Smoked in Last 30 Days: No e-Cigarette/Vaping Use: Never Used Second Hand Smoke Exposure: No Use of substances other than those prescribed or required for medical reasons: No Advance Directives: No Advance Directives Information Provided: No service: No Current occupational status: unemployed Sexual orientation: Straight/Heterosexual Gender identity: Female Cognitive needs: No Hearing needs: No Vision needs: Yes Physical Exam ED Vital Signs: Vital Signs - 24 hr 01/05/25 00:20 01/05/25 03:32 01/05/25 04:49 Temperature 98.0 F 97.8 F Pulse Rate 62 70 63 Respiratory Rate 18 20 16 Blood Pressure 142/69 H 115/67 100/58 L Pulse Oximetry 96 97 95 Oxygen Delivery Method Room Air Room Air Room Air BMI result Body Mass Index 28.3 Const General: healthy appearing, comfortable, no acute distress, alert and awake Nutritional Appearance: well nourished Orientation/consciousness: patient oriented x3 [facility] Head: Yes normocephalic and Yes atraumatic Eyes Eyelids: Yes eyelids normal Conjunctivae: conjunctivae normal Sclerae: sclerae normal Corneas: corneas normal Pupils: Equal, round and reactive pupils present EOM: EOMs intact bilaterally Neck Neck: Yes full ROM Resp Effort & Inspection: normal respiratory effort, able to speak in complete sentences, no audible wheezes and not labored Auscultation: clear to auscultation bilaterally Cardio Rate: regular rate Rhythm: regular rhythm GI Inspection: No distended Palpation (GI): Soft to palpation, not firm, nontender, no guarding and not rigid Skin General skin exam: no rashes or lesions noted and elasticity normal Neuro General: patient oriented x3 Cranial nerves: Yes CN's II-XII intact bilaterally, Yes Equal, round and reactive pupils present and Yes Bilaterally intact EOM present Cognition (Neuro): normal cognition Extrem Other: Moving all extremities well without any obvious deformities Course Reevaluation(s) Reevaluation #1: Patient signed out to overnight staff pending repeat troponin and disposition Time: 01:48 Reevaluation #2: Krogius: The patient was signed out to me at change of shift by the physician medical assistant. The patient had presented with a 1 day history of headache which was also associated with a high blood pressure reading at home and also a heart rate of 49. The patient told me that she realized she has a headache at around 3 or 04:00 on Tuesday morning. The headache persisted throughout the day. She took Tylenol 3 times throughout the day and also checked her blood pressure. Her blood pressure reading was high in the morning and again in the evening. She said that Tylenol helped for awhile but each time the headache returned. She ultimately came to the emergency room. No fever, sweats, chills. On exam the patient does not look obviously acutely ill and she has a supple neck. Her mental status is normal. Her neurological exam is normal. The patient told me she does not have a history of headaches and she told me that at the time that I was talking to her her headache was 8/10. At that point I decided to obtain a noncontrast head CT and also she was given a dose of acetaminophen, ibuprofen, and prochlorperazine orally (she did not wish to have an injection). The head CT was negative. She felt considerably better after the ibuprofen, acetaminophen, and prochlorperazine. I reviewed her labs. Her BUN is higher than when last checked. Her hemoglobin is also somewhat higher than when last checked. Perhaps she is somewhat dehydrated. My suspicion for an occult subarachnoid hemorrhage is very low and I do not feel there was an indication for additional testing on this subject. She will be discharged with instructions to increase her hydration. I sent prescriptions for acetaminophen, ibuprofen, and prochlorperazine to her pharmacy. She should follow up with her PCP. She should return if worse. Medications Administered Discontinued Medications Generic Name Dose Route Start Last Admin Trade Name Betty PRN Reason Stop Dose Admin Acetaminophen 975 mg 01/05/25 03:13 01/05/25 03:30 Acetaminophen 325 Mg Tablet PO 01/05/25 03:14 975 mg ONCE ONE Administration Ibuprofen 400 mg 01/05/25 03:13 01/05/25 03:30 Ibuprofen 400 Mg Tablet PO 01/05/25 03:14 400 mg ONCE ONE Administration Prochlorperazine Maleate 10 mg 01/05/25 03:13 01/05/25 03:30 Prochlorperazine Maleate 5 Mg Tablet PO 01/05/25 03:14 10 mg ONCE ONE Administration Medical Decision Making Medical Decision Making MDM Narrative: 69-year-old female with a past medical history as above presents for evaluation of a headache. She reports that she woke up this morning and checked her blood pressure which was noted to be slightly elevated for her and she also had bradycardia which she was recently admitted for. On arrival to the ED, her blood pressure is 142/69 and her heart rate was noted to be 62. An EKG was performed on arrival which showed normal sinus rhythm also with a rate of 62 beats minute. There were some T-wave inversions in the anterior lateral leads, V2 through V4 that were new when most recent EKG dated 12/15/2024, 3 weeks ago. The patient has not had any chest pain at all in the last week but did have some palpitations yesterday. She has no neuro deficits on exam, no trauma and she is not anticoagulated, low suspicion for intracranial hemorrhage. Plan for labs and likely a repeat troponin. Per cardiology notes, it was felt she may have some degree of mild otitis related to her influenza diagnosis that was contributing to her recent bradycardia. Differential Diagnosis Differential Diagnoses: The differential diagnosis associated with the presentation includes Hypertension Acute headache Myocarditis ACS Bradycardia Admission/Observation Consideration of admission/observation: Escalation of care including admission/observation considered Lab Data MDM Lab Attestation statement: I reviewed the patient's lab results. No leukocytosis or anemia. Normal platelet count. No significant electrolyte abnormalities warranting intervention. BUN elevated 26 and a normal creatinine 0.80. In his foot troponin was undetectable at less than 2.7 01/05/25 00:36 01/05/25 00:36 Labs: Lab Results 01/05/25 01/05/25 01/05/25 Range/Units 00:36 01:05 02:30 WBC 8.2 (4.8-10.8) X10*3/uL RBC 4.77 (4.20-5.50) X10*6/uL Hgb 14.6 (12.0-16.0) g/dl Hct 42.3 (37.0-47.0) % MCV 88.7 (80.0-98.0) fL MCH 30.6 (27.0-33.0) pg MCHC 34.5 (31.0-35.0) g/dl RDW 13.7 (11.0-16.0) % Plt Count 315 (160-400) X10*3/uL MPV 9.3 L (9.4-12.3) fL Immature Gran % (Auto) 0.2 (0.0-0.4) % Neut % (Auto) 47.8 (45-73) % Lymph % (Auto) 36.7 (20-40) % [place] % (Auto) 8.6 (2-11) % Eos % (Auto) 6.1 H (0-4) % Baso % (Auto) 0.6 (0-2) % Lymph # (Auto) 3.0 (1.2-4.9) X10*3/uL [place] # (Auto) 0.7 (0.1-1.2) X10*3/uL Eos # (Auto) 0.5 H (0.0-0.4) X10*3/uL Baso # (Auto) 0.1 (0.0-0.2) X10*3/uL Abs Immat Gran (auto) 0.02 (0.00-0.03) X10*3/uL Absolute Neuts (auto) 3.9 (2.0-8.3) x10*3/uL Absolute Nucleated RBC 0.000 (0.0-0.012) X10*3/uL Nucleated RBC % (auto) 0.0 (0.0-0.2) /100WBC Sodium 142 (135-145) mmol/L Potassium 3.4 (3.3-5.1) mmol/L Chloride 103 (96-108) mmol/L Carbon Dioxide 28 (22-29) mmol/L Anion Gap 14 (12-20) BUN 26 H (9-16) mg/dL Creatinine 0.80 (0.5-1.4) mg/dL Estim Creat Clear Calc 62.6 Estimated GFR > 60 Random Glucose 120 H (60-115) mg/dL Calcium 10.5 H D (8.4-10.2) mg/dL Total Bilirubin 0.3 (0.0-1.0) mg/dL AST 22 (5-31) U/L ALT 28 (0-31) U/L Alkaline Phosphatase 74 (39-117) U/L Troponin I High Sens < 2.7 < 2.7 (<3.5-17.0) ng/L Total Protein 7.8 (6.5-8.0) g/dL Albumin 4.4 (3.5-5.0) g/dL COVID-19 (KARIME) Negative (Negative) COVID-19 Clin Com See Note Influenza Type A ([facility]) Negative (Negative) Influenza Type B ([facility]) Negative (Negative) Influenza A & B Note See Note Discharge Plan Discharge Clinical Impression: Headache Patient Disposition: Home, Self-Care Additional Instructions: Please rest and take it easy today. Continue your regular medications. Please make sure that you drink plenty of fluids. You may be mildly dehydrated and this can lead to headaches. I have sent a prescription for a medication called prochlorperazine. This is a nausea medication which can be helpful for headaches. You may also use acetaminophen (Tylenol). In addition you may also use occasional ibuprofen. Please contact your regular doctor on Tuesday for a follow up appointment soon. Return to the emergency room if you feel significantly worse. Prescriptions: New acetaminophen 500 mg capsule 1,000 mg PO Q8H PRN (Reason: fever or pain) Qty: 14 0RF prochlorperazine maleate [Compazine] 10 mg tablet 5 mg PO Q6H PRN (Reason: headache) Qty: 10 0RF ibuprofen 400 mg tablet 400 mg PO Q6H PRN (Reason: pain) Qty: 10 0RF No Action (DME) CPAP Machine/Device Device See Rx Instructions .Route Qty: 1 0RF Rx Instructions: AutoCPAP 6-20 cmH2O omalizumab 150 mg recon soln 150 mg subcut Q4W Qty: 1 12RF albuterol sulfate 2.5 mg /3 mL (0.083 %) solution for nebulization 2.5 mg inhalation QID PRN (Reason: shortness of breath or wheezing) 30 Days Qty: 75 1RF calcium carbonate-vitamin D3 [Oyster Shell Calcium-Vit D3] 500 mg-10 mcg (400 unit) tablet 1 tab PO BID 90 Days Qty: 180 0RF amlodipine 5 mg tablet 5 mg PO DAILY 90 Days Qty: 90 1RF cholecalciferol (vitamin D3) 25 mcg (1,000 unit) capsule 25 mcg PO DAILY 90 Days Qty: 90 1RF losartan 100 mg tablet 100 mg PO DAILY Qty: 30 4RF simvastatin 20 mg tablet 20 mg PO BEDTIME Qty: 30 4RF hydrochlorothiazide 25 mg tablet 25 mg PO DAILY 90 Days Qty: 90 0RF cetirizine [Allergy Relief (cetirizine)] 10 mg tablet 10 mg PO BID PRN (Reason: allergy symptoms) 90 Days Qty: 90 3RF betamethasone dipropionate 0.05 % ointment 1 appl topical DAILY PRN (Reason: skin irritation) 30 Days Qty: 45 1RF fluticasone propion-salmeterol [Advair HFA] 115-21 mcg/actuation HFA aerosol inhaler 2 puff inhalation Q12H Qty: 12 0RF oseltamivir 75 mg capsule 75 mg PO BID pantoprazole 40 mg tablet,delayed release (DR/EC) 40 mg PO DAILY@0630 guaifenesin 100 mg/5 mL Liquid 100 mg PO Q4H PRN (Reason: Cough) Qty: 100 0RF Discharge Date/Time: 01/05/25 04:59 Print Language: Turkish
[2025-01-05 00:58] LABS: Alanine Aminotransferase 28 U/L (0-31); Albumin Level 4.4 g/dL (3.5-5.0); Alkaline Phosphatase 74 U/L (39-117); Anion Gap 14 (12-20); Aspartate Amino Transferase 22 U/L (5-31); Blood Urea Nitrogen 26 mg/dL (9-16); Calcium 10.5 mg/dL (8.4-10.2); Carbon Dioxide 28 mmol/L (22-29); Chloride 103 mmol/L (96-108); Creatinine Clr Calc Pharmacy 62.6; Estimated Glomerular Filt Rate > 60; Potassium 3.4 mmol/L (3.3-5.1); Sodium 142 mmol/L (135-145); Total Protein 7.8 g/dL (6.5-8.0)
[2025-01-05 01:08] LABS: Troponin-I High Sensitivity < 2.7 ng/L (<3.5-17.0)
[2025-01-05 01:29] LABS: IDNOW Serial# 55D5AD1C; Influenza B2 Negative (Negative)
[2025-01-05 01:30] LABS: COVID-19 Test Negative (Negative); IDNOW Serial# 58CA691E
[2025-01-05 02:58] LABS: Troponin-I High Sensitivity < 2.7 ng/L (<3.5-17.0)
[2025-01-05 03:32] VITALS: BP 115/67; PULSE 70; RESP 20; O2SAT 97
[2025-01-05 04:49] VITALS: BP 100/58; PULSE 63; RESP 16; TEMP 36.6; O2SAT 95
== END 2025-01-05 04:59 | disposition home or self-care (01) ==
PROVIDERS: Physician Assistant; Emergency Provider Emergency Medicine; PCP Internal Medicine
DX: R00.2 Palpitations (principal); R00.1 Bradycardia, unspecified; R51.9 Headache, unspecified; I10 Essential (primary) hypertension; Z79.899 Other long term (current) drug therapy; Z11.52 Encounter for screening for COVID-19
CPT/HCPCS: 36415; 70450; 80053; 84484; 85025; 87502; 87635; 93005; 99284

== ENCOUNTER → 2025-01-05 00:30 | Outpatient (BNV) | payer OTHER, SELFPAY | PROVIDERS: Emergency Provider Emergency Medicine; PCP Internal Medicine; Visit Provider Internal Medicine Cardiovascular Disease | DX: I45.10 Unspecified right bundle-branch block (principal) | CPT/HCPCS: 93010 ==

== ENCOUNTER → 2025-01-05 03:13 | Outpatient (BNV) | payer OTHER, SELFPAY | PROVIDERS: Emergency Provider Emergency Medicine; PCP Internal Medicine; Visit Provider Student in an Organized Health Care Education/Training Program | DX: R51.9 Headache, unspecified (principal) | CPT/HCPCS: 70450 ==

== ENCOUNTER → 2025-01-14 09:04 | Outpatient (REF) | payer OTHER, SELFPAY ==
--- NOTE | 2025-01-14 09:08 | HM_ITS ---
* Total monitoring time 3 days. * Underlying rhythm is sinus with an average rate of 60/Min. * Rare supraventricular ectopy. * Isolated ventricular ectopic beat. * No significant pauses or high-grade AV blocks. * No patient markers or diary events. MTDD
== END ==
LOC: HO.CARD 09:04
PROVIDERS: PCP Internal Medicine; Visit Provider Internal Medicine
DX: R00.1 Bradycardia, unspecified (principal)
CPT/HCPCS: 93242

== ENCOUNTER → 2025-01-14 09:08 | Outpatient (BNV) | payer OTHER, SELFPAY | PROVIDERS: PCP Internal Medicine; Visit Provider Internal Medicine | DX: I49.3 Ventricular premature depolarization (principal); I47.10 Supraventricular tachycardia, unspecified | CPT/HCPCS: 93244 ==

== ENCOUNTER 2025-01-15 08:21 | Outpatient (AMB) | payer OTHER, SELFPAY ==
--- OUTSIDE RECORDS SUMMARY | 2025-01-15 08:30 | XMS_ITS | Clinical Summary ---
Author Organization [address] [place] [address] [place] [id number] Phone Care Team Providers Care Instrumentation Technologist Name Role Phone Angelina Limon MD Primary Care Provider Surgical History Surgery Date Site/Laterality Comments OTHER SURGICAL HISTORY Bilateral PROCEDURE: OK EXCISION NASAL POLYP SIMPLE; COMMENT: 2014 KNEE ARTHROSCOPY W/ DEBRIDEMENT Right PROCEDURE: OK ARTHRS KNEE DEBRIDEMENT/SHAVING ARTCLR CRTLG TONSILLECTOMY N/A PROCEDURE: HISTORICAL TONSILLECTOMY Medical History Medical History Date Comments HTN (hypertension) DX:HTN (hyper tension) GERD (gastroesophageal reflux disease) DX:GERD (gastroesophageal reflux disease) Osteoarthritis 08/12/2020 DX:Osteoarthriti s Lumbago with sciatica, right side 08/12/2020 DX:Lumbago with sciatica, right side Hyperlipidemia 08/08/2020 DX:Hyperlipidemi a Lumbosacral pain, chronic 08/12/2020 DX:Lum bosacral pain, chronic PVD (peripheral vascular dis ease) ([facility] V24) 08/12/2020 DX:PVD (peripheral vascular disease) ([facility]) Lower extremity pain, bilateral 08/12/2020 [...] Screening 1955 Colorectal Cancer Screening: Colonoscopy 1955 RSV Immunization Adult Patients (1 - Risk 50-74 years 1-dose series) 2007 Zoster Vaccines (1 of 2) 2007 09/11/2001 Pneumococcal Vaccine: 50+ Years (2 of 2 - PCV) 09/03/2016 09/04/2015 DTaP,Tdap,and Td Vaccines (3 - Td or [...] ID:[id number] Group ID:[id number] Type:Not on file Address: [facility] [address] [phone] Care Teams Instrumentation Technologist Relationship Specialty Start Date End Date Angelina Limon MD 2 [facility] , [address] Physician Associ D/B/A: [facility] AGATHA Abraham PCP - General 08/14/23
[2025-01-15 08:32] VITALS: BP 124/86; PULSE 61; TEMP 36.1; O2SAT 96; BMI 30.1
--- NOTE | 2025-01-15 08:32 | A.OFFPC_ITS ---
Vital Signs 01/15/25 08:32 Height 5 ft 2 in Weight 164 lb 6 oz BMI 30.1 BP 124/86 Blood Pressure Location Lt brachial Position Sitting Pulse 61 Pulse Source Pulse Oximeter Temp 97.0 F Temp Source Temporal Artery Scan Pulse Oximetry (%) 96 Oxygen Delivery Method Room Air Intake Visit Reasons: LT knee pain (4 days) Casino Manager Required: Yes Casino Manager Language: Turkish Allergies peanut (PEANUT) Allergy (Severe, Verified 01/15/25 08:35) ANAPHYLAXIS penicillin G (Penicillin G) Allergy (Intermediate, Verified 01/15/25 08:35) RASH FRUIT Allergy (Severe, Uncoded 01/15/25 08:35) THROAT CLOSES Medication List - Last Reconciled 01/15/25 by Yannick Parmar MD acetaminophen 1,000 mg (2 x 500 mg) PO Q8H PRN Advair HFA 115-21 mcg/actuation (fluticasone propion-salmeterol) 2 puffs inhalation Q12H NS albuterol sulfate 2.5 mg (3 mL) inhalation QID PRN 30 days amlodipine 5 mg PO DAILY 90 days betamethasone dipropionate 0.05% 1 appl topical DAILY PRN 30 days calcium carbonate-vitamin D3 500 mg-10 mcg (400 unit) (Oyster Shell Calcium- Vitamin D3) 1 tab PO BID 90 days cetirizine (Allergy Relief (cetirizine)) 10 mg PO BID PRN 90 days cholecalciferol (vitamin D3) 25 mcg PO DAILY 90 days CPAP (CPAP Machine/Device) AutoCPAP 6-20 cmH2O guaifenesin 100 mg (5 mL) PO Q4H PRN hydrochlorothiazide 25 mg PO DAILY 90 days ibuprofen 400 mg PO Q6H PRN losartan 100 mg PO DAILY omalizumab 150 mg subcut Q4W pantoprazole 40 mg PO DAILY@0630 prochlorperazine maleate (Compazine) 5 mg (1/2 x 10 mg) PO Q6H PRN simvastatin 20 mg PO BEDTIME Tobacco use date assessed: 01/15/25 Fall risk assessment: No Falls in past year Last assessed Fall Risk: 01/15/25 Dental Screening Dental Screen Date: 01/15/25 Did you have a dental visit in the last 12 months?: Yes Did you have a dental problem in the last 6 months where you did not have access to dental care?: No Was dental information given to patient?: Patient has dentist HPI HPI Comments History of Present Illness Details The patient is a 69-year-old female presenting with severe left knee pain. She reports having knee pain for a long time, which significantly worsened four to five days ago, rendering her unable to walk. The pain does not subside with ointments or oral medications. The patient has a history of knee pain and was previously considered for surgery, but medication provided relief at that time. She has been using anti- inflammatory medications and ointments for the past five days without relief. She denies any fever or recent injections in the knee, although she had injections many years ago. [facility] Medical History Asthma Skin cancer COVID-19 vaccine series completed Melena Moderate persistent asthma, uncomplicated Hypercalcemia Lumbago with sciatica, left side H/O nasal polyp GERD (gastroesophageal reflux disease) HLD (hyperlipidemia) HTN (hypertension) Surgical History Status post surgical removal of malignant neoplasm of skin H/O colonoscopy Hx of nasal polypectomy Hx of arthroscopy of right knee History of tonsillectomy Family History Daughter Mental health disorder Daughter Mental health disorder Father CAD (coronary artery disease) Diabetes mellitus Mother Alzheimer disease Essential hypertension Social History Household Members: Spouse Housing: House Alcohol intake: never Patient Tobacco Use Status: Never used Tobacco e-Cigarette/Vaping Use: Never Used Second Hand Smoke Exposure: No service: No Current occupational status: unemployed Sexual orientation: Straight/Heterosexual Gender identity: Female Cognitive needs: No Hearing needs: No Vision needs: Yes Questionnaire PHQ-9 Over the last 2 weeks, how often have you been bothered by any of the following problems? 1. Little interest or pleasure in doing things: not at all 2. Feeling down, depressed, or hopeless: not at all 3. Trouble falling or staying asleep, or sleeping too much: not at all 4. Feeling tired or having little energy: not at all 5. Poor appetite or overeating: not at all 6. Feeling bad about yourself - or that you are a failure or have let yourself or your family down: not at all 7. Trouble concentrating on things, such as reading the newspaper or watching television: not at all 8. Moving or speaking so slowly that other people could have noticed. Or the opposite - being so fidgety or restless that you have been moving around a lot more than usual: not at all 9. Thoughts that you would be better off or of hurting yourself in some way: not at all Total score: 0 Source: Developed by Drs. Juan José Diaz, La Randle, Mio Ling and colleagues, with an educational eloisa from [employer]. Thrive Questionnaire Date Thrive assessed: 12/16/24 I am a: Patient What is your living situation today?: I have a steady place to live Within the past 12 months, did the food you bought not last and you didn't have the money to get more?: Never true Within the past 12 months, did you worry whether your food would run out before you got money to buy more?: Never true Do you have trouble paying for medicines?: No Do you have trouble getting transportation to medical appointments?: No Do you have trouble paying your heating and electricity bill?: No Do you have trouble taking care of your child, family member or friend?: No Do you have trouble with day-to-day activities such as bathing, preparing meals, shopping, managing finances, etc.?: No Are you currently unemployed and looking for a job?: No Are you interested in more education?: No Please select the resources that you would like help with: None Currently or been in a relationship where the following occur: No concerns reported THRIVE Score: 0 AUDIT C Alcohol Use Questionnaire (AUDIT-C) 1. How often do you have a drink containing alcohol?: Never 3. How often do you have six or more drinks on one occasion?: Never Total Score: 0 MARÍA-7 AMB Questionnaire MARÍA-7 Date MARÍA - 7 assessed: 10/15/24 Feeling nervous, anxious, or on edge: 0 = Not at all Not being able to stop or control worryin = Not at all Worrying too much about different things: 0 = Not at all Trouble relaxin = Not at all Being so restless that it is hard to sit still: 0 = Not at all Becoming easily annoyed or irritable: 0 = Not at all Feeling afraid as if something awful might happen: 0 = Not at all Total MARÍA-7 score (0-4 normal; 5-9 mild; 10-14 moderate; 15-21 severe): 0 Source: Developed by Drs. Juan José Diaz, La Randle, Mio Ling and colleagues, with an educational eloisa from [employer]. Review of Systems Const Details: Positives besides what was mentioned in HPI are in BOLD Constitutional: No Weight Change, No Fever, No Chills, No Night Sweats, No Fatigue, No Malaise ENT/Mouth: No Hearing Changes, No Ear Pain, No Nasal Congestion, No Sinus Pain, No Hoarseness, No sore throat, No Rhinorrhea, No Swallowing Difficulty Eyes: No Eye Pain, No Swelling, No Redness, No Foreign Body, No Discharge, No Vision Changes Cardiovascular: No Chest Pain, No SOB, No PND, No Dyspnea on Exertion, No Orthopnea, No Claudication, No Edema, No Palpitations Respiratory: No Cough, No Sputum, No Wheezing, No Smoke Exposure, No Dyspnea Gastrointestinal: No Nausea, No Vomiting, No Diarrhea, No Constipation, No Pain, No Heartburn, No Anorexia, No Dysphagia, No Hematochezia, No Melena, No Flatulence, No Jaundice Genitourinary: No Dysmenorrhea, No DUB, No Dyspareunia, No Dysuria, No Urinary Frequency, No Hematuria, No Urinary Incontinence, No Urgency, No Flank Pain, No Urinary Flow Changes, No Hesitancy Musculoskeletal: No Arthralgias, No Myalgias, No Joint Swelling, No Joint Stiffness, No Back Pain, No Neck Pain, No Injury History Skin: No Skin Lesions, No Pruritis, No Hair Changes, No Breast/Skin Changes, No Nipple Discharge Neuro: No Weakness, No Numbness, No Paresthesias, No Loss of Consciousness, No Syncope, No Dizziness, No Headache, No Coordination Changes, No Recent Falls Psych: No Anxiety/Panic, No Depression, No Insomnia, No Personality Changes, No Delusions, No Rumination, No SI/HI/AH/VH, No Social Issues, No Memory Changes, No Violence/Abuse Hx., No Eating Concerns Heme/Lymph: No Bruising, No Bleeding, No Transfusions History, No Lymphadenopathy Endocrine: No Polyuria, No Polydipsia, No Temperature Intolerance Physical exam (Primary Care) Vital Signs: Last Vital Signs Temp 97.0 F 01/15/25 08:32 Pulse 61 01/15/25 08:32 BP 124/86 01/15/25 08:32 Pulse Ox 96 01/15/25 08:32 Oxygen Delivery Method Room Air 01/15/25 08:32 BMI result Body Mass Index 30.1 Tobacco/Smoking Status: Tobacco use Status Tobacco use date assessed 01/15/25 01/15/25 08:36 Patient Tobacco Use Status Never used Tobacco 01/15/25 08:36 e-Cigarette/Vaping Use Never Used 01/15/25 08:36 PHQ-9: PHQ-9 Score PHQ-9: Total score 0 01/15/25 08:36 Thrive Assessment: Date of Thrive Assessment Date Thrive assessed 12/16/24 01/15/25 08:36 Currently or been in a relationship where the following occur: No concerns reported Const Other: Pertinent findings are in BOLD GENERAL APPEARANCE NAD, activity normal for age, well developed/ well nourished, no cyanosis, pallor, or diaphoresis. EYES lids/conjunctiva normal. EARS/NOSE/THROAT Mucous membranes moist, nares normal, lips/teeth normal uvula midline without oral pharyngeal erythema, exudate or swelling TMs normal bilaterally. No lymphangitis/lymphedema. HEAD/NECK normocephalic atraumatic, no facial trauma, neck is supple. RESPIRATORY respiratory effort normal, speaks in full sentences, no tripod position, no accessory muscle use. Lungs clear to auscultation without rhonchi, wheezes, rales CARDIAC Regular rate and rhythm, no edema. ABDOMINAL Soft, ND/NT. No evidence of fluid wave. No pulsatile masses on exam, rebound tenderness, Cantrell sign or pain over Mcburney's point. MUSCLES/EXTREMITIES No abnormal range of motion, no swelling. Point tenderness on medial and lateral bursae area. SKIN Warm, pink and dry. No rashes, dermatoses, petechiae or lesions. NEUROLOGICAL Speech is clear and appropriate. Normal level of consciousness. Gait and coordination are normal. 5/5 strength in all extremities. PSYCH Normal mood and affect. Judgement/competence is appropriate Coding Level of Care Code Est Pt Level 3 (10691) Diagnoses Pes anserinus bursitis of left knee M70.52 Bursitis location: knee Knee bursitis location: pes anserinus bursitis Laterality: left Time Spent (min) 20 Assessment & Plan Assessment & Plan (1) Bursitis: Code(s): M71.9 - Bursopathy, unspecified Category: Medical Qualifiers: Bursitis location: knee Knee bursitis location: pes anserinus bursitis Laterality: left Qualified Code(s): M70.52 - Other bursitis of knee, left knee Plan: - Plan to obtain an x-ray of the knee to assess the underlying cause of pain. - Prescribed doxycycline 100 mg twice daily for 7 days due to suspicion of infection. - Advised continuation of anti-inflammatory medications and alternating with Tylenol for pain management. - Recommended rest and application of ice to the affected knee. Plan I discussed with the patient the possibility of a knee joint infection and the need for an x-ray to further evaluate the condition. I explained the prescription of doxycycline 100 mg twice daily for 7 days to address the suspected infection. We also talked about continuing anti-inflammatory medications and alternating with Tylenol for pain relief, as well as the importance of rest and ice application. Orders: Orders XR knee LT 2V Today M71.9 - Bursopathy, unspecified Medications: New doxycycline hyclate 100 mg PO BID 14 caps 0RF
== END 2025-01-15 09:04 | disposition home or self-care (01) ==
LOC: HO.HMCH 08:22
PROVIDERS: PCP Internal Medicine; Visit Provider Internal Medicine
DX: M70.52 Other bursitis of knee, left knee (principal)

== ENCOUNTER 2025-01-15 08:21 | Outpatient (REF) | payer OTHER, SELFPAY ==
--- NOTE | ~2025-01-15 | XR_ITS ---
EXAMINATION: XR KNEE, LEFT CLINICAL INFORMATION: M71.9 - Bursopathy, unspecified COMPARISON: November 02, 2014 TECHNIQUE: AP and lateral views of the left knee. FINDINGS: There is moderate narrowing of the medial compartment, increased from the prior. There is minimal narrowing of lower arm. There are tricompartmental marginal osteophytes. There is mild medial subluxation of the distal femur. There is a small amount joint fluid. XR/XR knee LT 2V IMPRESSION: Moderate osteoarthritis, increased from the prior. Electronically signed by: Epi Sinha MD 01/15/2025 09:43 AM EDT
--- OUTSIDE RECORDS SUMMARY | 2025-01-15 10:05 | XMS_ITS | Data Portability ---
Author Organization [facility] [address] Address [address] [place] [address] Assessment No assessment recorded. Plan of Treatment Reminders Order Date Submit Date Provider Last Modified By Organization Details Last Modified Time Details Appointments None recorded. Lab None recorded. Referral None recorded. Procedures None recorded. Surgeries None recorded. Imaging None recorded. Medication Orders prednisone 10 mg tablet 2022 023 [email or web address] [address] [place], [address], 16:44:38 Zithromax Z-Keith 250 mg tablet [email or web address] [place] [address] [facility], [address] [place], [address], 16:44:38 Patient TargetsNo targets recorded. Patient Instructions Encounter Date Encounter Id Patient Instructions Last Modified By Organization Details Last Modified Time 12/27/2022 [id number] asthma in adults : care instructions Not available 12/27/2022 16:44:38 cough: care instructions Not available 12/27/2022 16:44:38 Reason for Referral None Reported. Problems Name Problem SNOMED Code Status Onset Date Resolution Date Notes Provider Name and Address Organization Details Recorded Time Asthma 453090224 Active ZELDA burks, [place] - [facility] 16:18:30 Hyperlipidemia 33246985 Active ZELDA LAFLEURO null, PA - [facility] 16:18:50 Hypertensive disorder 06050561 Active ZELDA burks, PA - [facility] 3 16:19:03 Exacerbation of intermittent asthma 424853532 Active 2022 Rudy Ac vitaliy [facility] 3 16:42:44 Problem Notes None recorded. Procedures Surgical History Date Name Laterality Status Provider Name and Address Organization Details Recorded Time Knee arthroscopy/arevalo rgery completed ZELDA LAFLEUREnid [place] - [facility] 12/27/2022 16:19:53 simple excision of nasal polyps completed ZELDA LAFLEUREnid [facility] 12/27/2022 16:20:06 Imaging Results None recorded. Procedure Notes None recorded. Medical Equipment None Reported. Allergies Allergen ID Allergen Name Allergen Category Reaction Reaction Severity Criticality Documentation Date Start Date Code Code System Note Provider Name and Address Organization Details Recorded Time 836783 Product containin g penicilli n (product) medicatio n Not available Not available Not available 12/27/2022 [id number] SNOMED ZELDA LAFLEUREnid vitaliy [facility] 3 16:17:07 Medications Name [...] Updated DateTime 3 157.48 cm 28.5 kg/m2 90699.4 1 g 96 % 96 % 73 [...] Diagnosis SNOMED-CT Code Diagnosis ICD10 Code Diagnosis IMO Codes Diagnosis Note [id number] [place] [address] [place] [address] 12/27/2022 15:01:44 12/27/2022 16:47:04 Acute upper respiratory infection 40335730 J06.9 Exacerbati on of intermittent asthma 637466987 J45.21 Based on your Presentati on, Exam, [...] . Severe Headache Thank you for using [facility] today, please feel free to contact our [...] 03/11/2023 2 [place] Robyn Yanza Colon [id number] Robynveronica Yanza Colon 12/27/2022 1 [place] Robyn Kahn Lee Colon [id number] Robynveronica Yanza Colon 12/27/2022 1 [facility] Robynveronica Yanza Colon [id number] Robynveronica Vallearza Colon Notes Date Note Type Note Provider Name and Address Organization Details Recorded Time 12/28/19 23 text/htm l CoughReported by PatientHPIFor quality, patient reportsproductive coughbut reportsintermittent. For severity, patient reportsworseningbut reportsmoderate. For associated symptoms, patient reportschillsandwheezingbut reportsno fever,no chest pain,no heartburn,no nausea, andno vomiting. For source of patient information, patient reportsinformation obtained from patientandpatient arrived at urgent care ambulatory(via albanian interpretor). For duration, patient reportsintermittentand6 days. For context, patient reportspatient denies vapingandnon-smoker. Patient presents with green/yellow productive cough and chest congestion x 6 days . hx of asthma, treated with advair and albuterol inhaler and neb. thus far no relief from the rescue meds , cough and wheezing with diaphragm pain from coughing so much . Hillary Rai NP [address] [place], [address], [place] - [facility] 12/27/2022 16:44:59 OBGyn Episode No OBEpisode recorded.
== END 2025-01-15 08:22 | disposition home or self-care (01) ==
LOC: HO.XRAY 08:21
PROVIDERS: PCP Internal Medicine; Visit Provider Internal Medicine
DX: M70.52 Other bursitis of knee, left knee (principal); Z79.899 Other long term (current) drug therapy
CPT/HCPCS: 73560; 99212

== ENCOUNTER → 2025-01-15 09:16 | Outpatient (BNV) | payer OTHER, SELFPAY | PROVIDERS: PCP Internal Medicine; Visit Provider Radiology Diagnostic Radiology | DX: M71.9 Bursopathy, unspecified (principal); M17.12 Unilateral primary osteoarthritis, left knee | CPT/HCPCS: 73560 ==

== ENCOUNTER 2025-01-23 09:33 | Outpatient (AMB) | payer OTHER, SELFPAY ==
--- NOTE | 2025-01-23 09:38 | MHC.PC.OV ---
Vital Signs 01/23/25 09:39 Height 5 ft 2 in Weight 162 lb BMI 29.6 BP 138/78 Blood Pressure Location Lt brachial Position Sitting Pulse 56 Pulse Source Pulse Oximeter Temp 97.3 F Temp Source Temporal Artery Scan Pulse Oximetry (%) 96 Oxygen Delivery Method Room Air Intake Visit Reasons: F/U Intake Note: Patient is here to follow up on left knee pain Single Pass Soil Stabilizer Operator Required: Yes Single Pass Soil Stabilizer Operator Language: Clipping Marker Name: Jairo [id number] Information Interpreted: non-clinical & clinical Airbrush Painter: Not Required per policy Accompanied by: Self / Same As Patient Allergies peanut (PEANUT) Allergy (Severe, Verified 01/23/25 09:39) ANAPHYLAXIS penicillin G (Penicillin G) Allergy (Intermediate, Verified 01/23/25 09:39) RASH FRUIT Allergy (Severe, Uncoded 01/23/25 09:39) THROAT CLOSES Tobacco use date assessed: 01/23/25 Fall risk assessment: No Falls in past year Last assessed Fall Risk: 01/23/25 Dental Screening Dental Screen Date: 01/15/25 HPI HPI Comments History of Present Illness Details The patient is a 69-year-old female presenting for follow-up of knee pain and evaluation of new-onset dizziness and left ear pain. The patient reports a history of knee pain for years, which comes and goes. She was recently seen on Tuesday for this issue, and her symptoms are unchanged despite taking antibiotics and applying ice as previously instructed. She states Tylenol provides temporary relief, but the pain returns. A recent X-ray revealed severe osteoarthritis worsened from prior. Additionally, for the past five or six days, the patient has experienced dizziness when she goes to sleep or changes position, such as rolling over. This is associated with left ear pain. She has a history of vertigo, which was diagnosed six years ago in [place] after a severe episode. [facility] Medical History Asthma Skin cancer COVID-19 vaccine series completed Melena Moderate persistent asthma, uncomplicated Hypercalcemia Lumbago with sciatica, left side H/O nasal polyp GERD (gastroesophageal reflux disease) HLD (hyperlipidemia) HTN (hypertension) Surgical History Status post surgical removal of malignant neoplasm of skin H/O colonoscopy Hx of nasal polypectomy Hx of arthroscopy of right knee History of tonsillectomy Family History Daughter Mental health disorder Daughter Mental health disorder Father CAD (coronary artery disease) Diabetes mellitus Mother Alzheimer disease Essential hypertension Social History Household Members: Spouse Housing: House Alcohol intake: never Patient Tobacco Use Status: Never used Tobacco e-Cigarette/Vaping Use: Never Used Second Hand Smoke Exposure: No service: No Current occupational status: unemployed Sexual orientation: Straight/Heterosexual Gender identity: Female Cognitive needs: No Hearing needs: No Vision needs: Yes Questionnaire Thrive Questionnaire Date Thrive assessed: 12/16/24 MARÍA-7 AMB Questionnaire MARÍA-7 Date MARÍA - 7 assessed: 10/15/24 Source: Developed by Drs. Juan José Diaz, La Randle, Mio Ling and colleagues, with an educational eloisa from [employer]. Review of Systems Const Details: As per HPI. Physical exam (Primary Care) Vital Signs: Last Vital Signs Temp 97.3 F 01/23/25 09:39 Pulse 56 01/23/25 09:39 BP 138/78 01/23/25 09:39 Pulse Ox 96 01/23/25 09:39 Oxygen Delivery Method Room Air 01/23/25 09:39 BMI result Body Mass Index 29.6 Tobacco/Smoking Status: Tobacco use Status Tobacco use date assessed 01/23/25 01/23/25 09:44 Patient Tobacco Use Status Never used Tobacco 01/23/25 09:44 e-Cigarette/Vaping Use Never Used 01/23/25 09:44 Thrive Assessment: Date of Thrive Assessment Date Thrive assessed 12/16/24 01/23/25 09:44 Const Other: Pertinent findings are in BOLD GENERAL APPEARANCE NAD, activity normal for age, well developed/ well nourished, no cyanosis, pallor, or diaphoresis. EYES lids/conjunctiva normal. EARS/NOSE/THROAT Mucous membranes moist, nares normal, lips/teeth normal uvula midline without oral pharyngeal erythema, exudate or swelling TMs normal bilaterally. No lymphangitis/lymphedema. HEAD/NECK normocephalic atraumatic, no facial trauma, neck is supple. RESPIRATORY respiratory effort normal, speaks in full sentences, no tripod position, no accessory muscle use. Lungs clear to auscultation without rhonchi, wheezes, rales CARDIAC Regular rate and rhythm, no edema. ABDOMINAL Soft, ND/NT. No evidence of fluid wave. No pulsatile masses on exam, rebound tenderness, Cantrell sign or pain over Mcburney's point. MUSCLES/EXTREMITIES No abnormal range of motion, no swelling. Tenderness on the left knee. SKIN Warm, pink and dry. No rashes, dermatoses, petechiae or lesions. NEUROLOGICAL Speech is clear and appropriate. Normal level of consciousness. Gait and coordination are normal. 5/5 strength in all extremities. PSYCH Normal mood and affect. Judgement/competence is appropriate Coding Level of Care Code Est Pt Level 3 (88875) Diagnoses Primary osteoarthritis of left knee M17.12 Osteoarthritis location: knee Osteoarthritis type: primary Laterality: left Benign paroxysmal positional vertigo of left ear H81.12 Laterality: left Time Spent (min) 20 Assessment & Plan Assessment & Plan (1) Osteoarthritis: Code(s): M19.90 - Unspecified osteoarthritis, unspecified site Category: Medical Qualifiers: Osteoarthritis location: knee Osteoarthritis type: primary Laterality: left Qualified Code(s): M17.12 - Unilateral primary osteoarthritis, left knee Plan: - The patient's knee pain is attributed to severe osteoarthritis, confirmed by a recent x-ray. - The recommended treatment is physical therapy. - Voltaren gel prescribed. - If physical therapy does not provide sufficient relief, a referral to an orthopedic surgeon will be made. (2) BPPV (benign paroxysmal positional vertigo): Code(s): H81.10 - Benign paroxysmal vertigo, unspecified ear Category: Medical Qualifiers: Laterality: left Qualified Code(s): H81.12 - Benign paroxysmal vertigo, left ear Plan: - The patient's positional dizziness is diagnosed as vertigo, which she has a history of from six years prior. - Physical therapy is recommended for vestibular maneuvers to help recalibrate the ears. Plan I explained to the patient that her knee pain is caused by severe osteoarthritis, which was identified on her recent X-ray. I recommended physical therapy as the best treatment, and she was agreeable to this.I prescribed her Voltaren gel. I advised that if physical therapy does not help, we will refer her to an orthopedic surgeon. We also discussed her new symptoms of dizziness with position changes, which I explained is vertigo. Given her history of this condition, I recommended physical therapy for vestibular maneuvers to help resolve the symptoms. Orders: Orders PT Evaluation and Treatment Today H81.10 - Benign paroxysmal vertigo, unspecified ear, M19.90 - Unspecified osteoarthritis, unspecified site Medications: New diclofenac sodium 1% (Voltaren Arthritis Pain) apply to single knee, ankle, foot; for foot includes sole/toes/top of foot 4 grams topical QID 100 grams 3RF
[2025-01-23 09:39] VITALS: BP 138/78; PULSE 56; TEMP 36.3; O2SAT 96; BMI 29.6
--- OUTSIDE RECORDS SUMMARY | 2025-01-23 11:23 | XMS_ITS | Data Portability ---
Author Organization VIVIANE [facility]ix [facility] [address] Address [address] [place] [address] Assessment No assessment recorded. Plan of Treatment Reminders Order Date Submit Date Provider Last Modified By Organization Details Last Modified Time Details Appointments None recorded. Lab None recorded. Referral None recorded. Procedures None recorded. Surgeries None recorded. Imaging None recorded. Medication Orders prednisone 10 mg tablet 2022 023 [email or web address] [address] [place], [address], 16:44:38 Zithromax Z-Keith 250 mg tablet [address] [place] [address] [facility] [address], [address] [place], [address], 16:44:38 Patient TargetsNo targets recorded. Patient Instructions Encounter Date Encounter Id Patient Instructions Last Modified By Organization Details Last Modified Time 12/27/2022 [id number] asthma in adults : care instructions Not available 12/27/2022 16:44:38 cough: care instructions Not available 12/27/2022 16:44:38 Reason for Referral None Reported. Problems Name Problem SNOMED Code Status Onset Date Resolution Date Notes Provider Name and Address Organization Details Recorded Time Asthma 075134479 Active ZELDA burks, [place] - [facility] 16:18:30 Hyperlipidemia 57389299 Active ZELDA LAFLEURO null, PA - [facility] 16:18:50 Hypertensive disorder 82477306 Active ZELDA burks, [place] - [facility] 3 16:19:03 Exacerbation of intermittent asthma 088738185 Active 2022 Rudy Ac vitaliy [facility] 3 16:42:44 Problem Notes None recorded. Procedures Surgical History Date Name Laterality Status Provider Name and Address Organization Details Recorded Time Knee arthroscopy/arevalo rgery completed ZELDA LAFLEUREnid [place] - [facility] 12/27/2022 16:19:53 simple excision of nasal polyps completed ZELDA [facility]AFLEUREnid [facility] 12/27/2022 16:20:06 Imaging Results None recorded. Procedure Notes None recorded. Medical Equipment None Reported. Allergies Allergen ID Allergen Name Allergen Category Reaction Reaction Severity Criticality Documentation Date Start Date Code Code System Note Provider Name and Address Organization Details Recorded Time 761356 Product containin g penicilli n (product) medicatio n Not available Not available Not available 12/27/2022 85448 8001 SNOMED ZELDA LAFLEUREnid vitaliy [facility] 3 16:17:07 Medications Name [...] Updated DateTime 3 157.48 cm 28.5 kg/m2 28474.4 1 g 96 % 96 % 73 [...] ICD10 Code Diagnosis IMO Codes Diagnosis Note [id number] [place] [address] [place] [address] 12/27/2022 15:01:44 12/27/2022 16:47:04 Acute upper respiratory infection 11445389 J06.9 Exacerbati on of intermittent asthma 863015306 J45.21 Based on your Presentati on, Exam, [...] . Severe Headache Thank you for using [facility] today, please feel free to contact our [...] 03/11/2023 2 [place] Robyn Yanza Colon [id number] Robynveronica Yanza Colon 12/27/2022 1 [place] [employer] Robyn Kahn Lee Colon [id number] Robynveronica Yanza Colon 12/27/2022 1 [facility] [place] [place] Robynveronica aYnza Colon [id number] Robynveronica Vallearza Colon Notes Date Note Type Note Provider Name and Address Organization Details Recorded Time 12/28/19 23 text/htm l CoughReported by PatientHPIFor quality, patient reportsproductive coughbut reportsintermittent. For severity, patient reportsworseningbut reportsmoderate. For associated symptoms, patient reportschillsandwheezingbut reportsno fever,no chest pain,no heartburn,no nausea, andno vomiting. For source of patient information, patient reportsinformation obtained from patientandpatient arrived at urgent care ambulatory(via dive[employer] interpretor). For duration, patient reportsintermittentand6 days. For context, patient reportspatient denies vapingandnon-smoker. Patient presents with green/yellow productive cough and chest congestion x 6 days . hx of asthma, treated with advair and albuterol inhaler and neb. thus far no relief from the rescue meds , cough and wheezing with diaphragm pain from coughing so much . Hillary Rai NP [address] [place], [address], [place] - [facility] 12/27/2022 16:44:59 OBGyn Episode No OBEpisode recorded.
== END 2025-01-23 10:39 | disposition home or self-care (01) ==
LOC: HO.HMCH 09:33
PROVIDERS: PCP Internal Medicine; Visit Provider Internal Medicine
DX: M17.12 Unilateral primary osteoarthritis, left knee (principal); H81.12 Benign paroxysmal vertigo, left ear

== ENCOUNTER → 2025-01-23 09:33 | Outpatient (BNVA) | payer OTHER, SELFPAY | PROVIDERS: PCP Internal Medicine; Visit Provider Internal Medicine | DX: H92.02 Otalgia, left ear (principal); M17.12 Unilateral primary osteoarthritis, left knee; H81.12 Benign paroxysmal vertigo, left ear | CPT/HCPCS: 99212 ==